=== PATIENT | female | born 1960 | race African-American/Black ===

== ENCOUNTER 2016-07-24 08:56 | Emergency (ER) | payer MEDICARE, BC ==
[~2016-07-24] VITALS: Wt 77.5 kg
[~2016-07-24 08:56] MED LIST: AMIO200T2 PO; APIX5TAB PO; ATOR20TA38 PO; CARV12.579 PO; FURO40TA4 PO; LANT3I SC; LISI20TA11 PO; METF500T4 PO; ONDA4SOL2 PO; SPIR25TA76 PO
[2016-07-24] MEDS ORDERED: SOD CHLORIDE 0.9% 1,000 ML IV STA (10:25)
[2016-07-24] MEDS ORDERED: ONDANSETRON 4 MG INJ IV STA (10:25)
[2016-07-24] MEDS ORDERED: morphine 2 MG INJ IV STA (10:25)
[2016-07-24 11:00] LABS: BASOPHILS % 0.3 % (0.0-2.0); EOSINOPHILS # 0.1 10^3/ul (0.0-0.5); EOSINOPHILS % 1.1 % (0.0-7.0); HEMATOCRIT 32.1 % (37.0-47.0); HEMOGLOBIN 11.1 g/dl (12.0-16.0); LYMPHOCYTES # 1.5 10^3/ul (0.8-2.9); LYMPHOCYTES % 15.7 % (15.0-51.0); MEAN CORPUSCULAR HEMOGLOBIN 31.7 pg (29.0-33.0); MEAN CORPUSCULAR HGB CONC 34.7 g/dl (32.0-37.0); MEAN CORPUSCULAR VOLUME 91.3 fl (82.0-101.0); MEAN PLATELET VOLUME 8.1 fl (7.4-10.4); MONOCYTE # 0.6 10^3/ul (0.3-0.9); MONOCYTES % 5.9 % (0.0-11.0); NEUTROPHIL # 7.6 10^3/ul (1.6-7.5); PLATELET COUNT 230 10^3/UL (140-440); RED BLOOD COUNT 3.52 10^6/ul (4.20-5.40); RED CELL DISTRIBUTION WIDTH 12.5 % (11.5-14.5); UNCORRECTED WBC 9.9 10^3/ul (4.8-10.8); WHITE BLOOD COUNT 9.9 10^3/ul (4.8-10.8)
[2016-07-24] MEDS ORDERED: DIPHENHYDRAMINE 50 MG INJ IM ONE (11:00)
[2016-07-24 11:02] LABS: POTASSIUM 4.1 mmol/L (3.5-5.1)
[2016-07-24] MEDS ORDERED: METF-388 PO (11:03)
[2016-07-24 11:04] LABS: CREATININE 1.42 mg/dl (0.44-1.00)
[2016-07-24 11:05] LABS: BILIRUBIN,INDIRECT 0.4 mg/dl (0-1.1); BILIRUBIN,TOTAL 0.4 mg/dl (0.2-1.3); CALCIUM 9.5 mg/dl (8.4-10.2); CONDITION 1; TOTAL PROTEIN 7.4 g/dl (6.1-8.1)
[2016-07-24 11:06] LABS: ALBUMIN/GLOBULIN RATIO 1.17
--- NOTE | 2016-07-24 11:31 | RADRPT ---
PROCEDURE: CT Abdomen and Pelvis without contrast CLINICAL INDICATION: Acute and chronic right flank pain TECHNIQUE: Transaxial images were obtained through the abdomen and pelvis on a multi-slice scanner without the intravenous contrast administration. No oral contrast had previously been given. Sagit shara and coronal re-formations were subsequently reconstructed. One or more of the following dose reduction techniques were used: - Automated exposure control. - Adjustment of the mA and/or kV according to patient size. - Use of iterative reconstruction technique. Radiation dose: CTDIvol = 13.95 mGy; DLP = 714.68 mGy-cm. COMPARISON: Comparison to 04/06/2016 FINDINGS: Lung bases: The visualized lung bases appear unremarkable. Liver: The liver is enlarged but no focal lesion is identified. Gallbladder: There is cholelithiasis but the gallbladder wall is not thickened. Bile ducts: The intra and extrahepatic bile ducts are normal in caliber. Pancreas: Appears normal with no mass or inflammation evident. Spleen: Normal in size with no focal lesion. Adrenals: Normal with no mass identified. Kidneys, ureters and bladder: The kidneys are normal in size and there is no mass, pathological calc ification, or hydronephrosis evident. There is no perinephric stranding. The ureters are normal in c aliber and no ureteroliths are identified. The bladder appears unremarkable. Reproductive organs: The uterus is absent and no adnexal masses evident. Stomach and bowel: Scattered colonic diverticuli are evident but there is no evidence of bowel obstr uction or inflammation. The stomach appears unremarkable. Appendix: A normal vermiform appendix is identified. Peritoneum: No free intraperitoneal fluid or air is identified. Aorta: There is mild atherosclerotic vascular calcification but no abdominal aortic aneurysm is evid ent. IVC: Unremarkable. Lymph nodes: A 4.5 mm calcified node is seen within the retroperitoneum on image #71 of series 1. Osseous structures: The osseous elements appear intact. IMPRESSION: 1. Persistent mild hepatomegaly with no focal lesion. 2. There is again uncomplicated cholelithiasis not associated with gallbladder wall thickening or b ile duct dilatation. No pancreatic abnormality is evident. 3. Scattered diverticuli are again seen within the colon without evidence of bowel obstruction or i nflammation and with a normal-appearing vermiform appendix again evident. 4. There is again no evidence of urinary outflow obstruction or ureterolithiasis. 5. There is again evidence of a previous hysterectomy. 6. A small calcified retroperitoneal node is again evident. Physician Gurinder Date Time Electronically viewed and signed by Qing Goff Physician on 07/24/2016 11:31 /
[2016-07-24] MEDS ORDERED: ONDA4TAB14 PO (12:57)
[2016-07-24] MEDS ORDERED: TRAM50TA2 PO (12:57)
[2016-07-24] MEDS ORDERED: HYDR-906 PO (12:57)
--- NOTE | 2016-07-24 13:02 | ERD ---
ER Documentation Chief Complaint Date/Time DATE: 07/24/16 TIME: 12:58 Chief Complaint r. flank pain since This 56-year-old female presents with approximately 40 days of right anterior abdominal pain that radiates to her back. States that she's been diagnosed with renal insufficiency and is going to be seeing a specialist soon. She has good primary care follow-up. She's had mild nausea as well. Denies any fevers or chills. Has not tried taking anything for the pain that makes it better or worse. ROS All systems reviewed and are negative except as per history of present illness. Medications Home Meds Active Scripts Ondansetron (Ondansetron Odt) 4 Mg Tab.rapdis, 4 MG PO Q6H Y for NAUSEA AND/OR VOMITING, #10 TAB Prov:SERENITY MORIN DO 07/24/16 Tramadol HCl (Tramadol HCl) 50 Mg Tablet, 50 MG PO Q6 Y for PAIN, #14 TAB Prov:SERENITY MORIN DO 07/24/16 Hydrocodone/Acetaminophen ([place] 5-325 Tablet) 1 Each Tablet, 1 EACH PO Q6, #8 TAB Prov:SERENITY MORIN DO 07/24/16 Ondansetron HCl (Zofran) 4 Mg/5 Ml Solution, 4 MG PO Q4, #20 Prov:SULEMA RG PA-C 04/06/16 Spironolactone* (Aldactone*) 25 Mg Tablet, 25 MG PO BID for 30 Days, TAB 3 Refills Prov:ANNA MIRANDA 02/12/16 Lisinopril* (Lisinopril*) 20 Mg Tablet, 20 MG PO DAILY for 30 Days, TAB 3 Refills Prov:ANNA MIRANDA 02/12/16 Furosemide* (Furosemide*) 40 Mg Tablet, 40 MG PO BID for 30 Days, TAB 3 Refills Prov:ANNA MIRANDA 02/12/16 Atorvastatin Calcium* (Atorvastatin Calcium*) 20 Mg Tab, 20 MG PO HS for 30 Days , TAB 3 Refills Prov:ANNA MIRANDA 10/07/15 Apixaban* (Eliquis*) 5 Mg Tablet, 5 MG PO BID for 30 Days, TAB 3 Refills Prov:ANNA MIRANDA 10/07/15 Reported Medications Metformin Hcl* (Metformin Hcl*) 1,000 Mg Tablet, 1000 MG PO WITH BREAKFAST DINNE , #30 TAB 07/24/16 Amiodarone Hcl* (Amiodarone Hcl*) 200 Mg Tablet, 200 MG PO DAILY, #30 TAB 02/09/16 Insulin Glargine* (Lantus*) 100 Unit/Ml Soln, 26 UNIT SC QHS, #1 VIAL 02/09/16 Discontinued Reported Medications Metformin* (Glucophage*) 500 Mg Tab, 500 MG PO BID, #60 TAB 02/09/16 Carvedilol* (Carvedilol*) 12.5 Mg Tablet, 12.5 MG PO BID, #60 TAB 02/09/16 Allergies Allergies: Coded Allergies: meperidine HCl (Verified Allergy, Mild, ITCHINESS, 07/24/16) PMhx/Soc History of Surgery: Yes (HYSTERECTOMY, CYST LEFT LEG, RT LEG SURGERY) Anesthesia Reaction: Yes (BREATHING PROBLEMS) Hx Neurological Disorder: No Hx Respiratory Disorders: No Hx Cardiac Disorders: Yes (CHF, HTN, HIGH CHOLESTEROL) Hx Psychiatric Problems: No Hx Miscellaneous Medical Probl: Yes (DM) Hx Alcohol Use: No Hx Substance Use: No Hx Tobacco Use: No Smoking Status: Never smoker Physical Exam Vitals Vital Signs Date Time Temp Pulse Resp B/P Pulse Ox O2 Delivery O2 Flow Rate FiO2 07/24/16 09:40 97.9 78 20 144/73 100 Room Air 07/24/16 09:04 97.9 85 20 144/73 100 Physical Exam Const: [] No distress Head: Atraumatic Eyes: Normal Conjunctiva ENT: Normal External Ears, Nose and Mouth. Neck: Full range of motion..~ No meningismus. Resp: Clear to auscultation bilaterally Cardio: Regular rate and rhythm, no murmurs Abd: Soft, right upper quadrant tenderness without guarding or rebound, non distended. Normal bowel sounds Skin: No petechiae or rashes Back: No midline or flank tenderness Ext: No cyanosis, or edema Neur: Awake and alert and oriented 3, no focal deficits Psych: Normal Mood and Affect Result Diagram: 07/24/16 1040 07/24/16 1040 Results 24 hrs Laboratory Tests Test 07/24/16 10:40 Alanine Aminotransferase (ALT/SGPT) 25IU/L Albumin 4.0g/dl Albumin/Globulin Ratio 1.17 Alkaline Phosphatase 65IU/L Anion Gap 17 Aspartate Amino Transf (AST/SGOT) 14IU/L Basophils # 0.010^3/ul Basophils % 0.3% Blood Urea Nitrogen 33mg/dl Calcium Level 9.5mg/dl Carbon Dioxide Level 28mmol/L Chloride Level 100mmol/L Creatinine 1.42mg/dl Direct Bilirubin 0.00mg/dl Eosinophils # 0.110^3/ul Eosinophils % 1.1% Globulin 3.40g/dl Glucose Level 146mg/dl Hematocrit 32.1% Hemoglobin 11.1g/dl Indirect Bilirubin 0.4mg/dl Lactic Acid Level 1.1mmol/L Lipase 67U/L Lymphocytes # 1.510^3/ul Lymphocytes % 15.7% Mean Corpuscular Hemoglobin 31.7pg Mean Corpuscular Hemoglobin Concent 34.7g/dl Mean Corpuscular Volume 91.3fl Mean Platelet Volume 8.1fl Monocytes # 0.610^3/ul Monocytes % 5.9% Neutrophils # 7.610^3/ul Neutrophils % 77.0% Nucleated Red Blood Cells # 0.010^3/ul Nucleated Red Blood Cells % 0.0/100WBC Platelet Count 18443^3/UL Potassium Level 4.1mmol/L Red Blood Count 3.5210^6/ul Red Cell Distribution Width 12.5% Sodium Level 141mmol/L Total Bilirubin 0.4mg/dl Total Protein 7.4g/dl White Blood Count 9.910^3/ul Current Medications Medications (Trade) Dose Ordered Sig/Rizwan Route PRN Reason Start Time Stop Time Status Last Admin Dose Admin Sodium Chloride (NS) 1,000 ml @ 1,000 mls/hr Q1H STAT IV 07/24/16 10:25 07/24/16 11:24 DC 07/24/16 10:31 Morphine Sulfate (morphine) 2 mg ONCE STAT IV 07/24/16 10:25 07/24/16 10:26 DC 07/24/16 10:31 Ondansetron HCl (Zofran Inj) 4 mg ONCE STAT IV 07/24/16 10:25 07/24/16 10:26 DC 07/24/16 10:30 Diphenhydramine HCl (Benadryl) 25 mg ONCE ONCE IM 07/24/16 11:00 07/24/16 11:01 DC 07/24/16 10:39 Procedures/MDM Biliary colic and very stable patient with no evidence for acute cholecystitis or ascending cholangitis. She is hydrated with normal saline in the emergency room and given morphine and Zofran IV in the emergency room which relieved her pain but caused some itching. She was then given 25 mg of IM Benadryl. She has no elevated white count or elevated LFTs or bilirubin. Does have renal insufficiency she states she is artery been diagnosed with. Admitted discharge her with [place] and tramadol for pain as well as Zofran ODT and instructed to call her primary care doctor tomorrow for an appointment sooner. I am also given instructions to obtain a referral for general surgeon to address her gallbladder. Departure Diagnosis: Primary Impression: Biliary colic Additional Impressions: Flank pain Renal insufficiency Condition: Stable Patient Instructions: Flank Pain, Uncertain Cause, Biliary Colic With Gallstone (Confirmed) Additional Instructions: Call your primary care doctor TOMORROW for an appointment during the next 2-3 days. Get a referall for a GENERAL SURGEON. See the doctor sooner or return here if your condition worsens before your appointment time. SERENITY MORIN DO Jul 24, 2016 13:02
[2016-07-24 13:24] VITALS: BP 136/71; PULSE 71; RESP 20; TEMP 98.3
== END 2016-07-24 13:26 | disposition home or self-care (01) ==
LOC: E/R 08:56
DX: K80.50 Calculus of bile duct without cholangitis or cholecystitis without obstruction (principal); R10.11 Right upper quadrant pain; N28.9 Disorder of kidney and ureter, unspecified; R11.0 Nausea; I10 Essential (primary) hypertension; I50.9 Heart failure, unspecified; E11.9 Type 2 diabetes mellitus without complications; Z79.01 Long term (current) use of anticoagulants; Z79.4 Long term (current) use of insulin; Z79.84 Long term (current) use of oral hypoglycemic drugs
CPT/HCPCS: 74176; 80053; 83605; 83690; 85025; 96372; 96374; 96375; 99285; J1200; J2270; J2405; J7030

== ENCOUNTER 2016-07-28 16:35 | Observation (INO) | payer MEDICARE, BC ==
[~2016-07-28] VITALS: Ht 165.1 cm; Wt 80.2 kg
[~2016-07-28 16:35] MED LIST changes: -CARV12.579 PO; +HYDR-906 PO; +METF-388 PO; -METF500T4 PO; +ONDA4TAB14 PO; +TRAM50TA2 PO
[2016-07-28] MEDS ORDERED: HYDROmorphONE 1 MG/ML SYG IV STA (17:51)
[2016-07-28] MEDS ORDERED: ONDANSETRON 4 MG INJ IV STA ×2 (17:51→19:27)
[2016-07-28] MEDS ORDERED: SOD CHLORIDE 0.9% 1,000 ML IV STA (17:51)
--- NOTE | 2016-07-28 18:14 | RADRPT ---
PROCEDURE: US Abdomen (right upper quadrant). CLINICAL INDICATION: Right upper quadrant abdomen pain. TECHNIQUE: Multiple real-time longitudinal and transverse images of the right upper quadrant of th e abdomen were acquired utilizing a curved array transducer. Images were reviewed on a high-resoluti on PACS workstation. COMPARISON: CT scan of the abdomen and pelvis dated 07/24/2016. FINDINGS: The liver is normal in size and diffusely increased in echogenicity. There is no focal hepatic lesion. The gallbladder contains multiple gallstones. There is no gallbladder wall thickening. There is no pericholecystic fluid collection. The bile ducts are normal with the common bile duct measuring 2.6 mm in diameter. The visualized portions of the pancreas are unremarkable with obscuration of the tail of the pancrea s. No free fluid is present. The right kidney measures 10.5 x 4.0 x 4.9 cm. There is normal echogenicity of the right kidney. There is no perinephric fluid collection. No hydronephrosis, mass, or calculus is seen. IMPRESSION: 1. Fatty metamorphosis of the liver. 2. Gallstones in the gallbladder. No evidence of cholecystitis. 3. Otherwise normal right upper quadrant abdomen ultrasound. RPTAT: QQ .Alfred Dougherty MD, MD Date Time Electronically viewed and signed by .Alfred Dougherty MD, on 07/28/2016 18:14 .R/
[2016-07-28 18:16] LABS: HEMATOCRIT 32.3 % (37.0-47.0); HEMOGLOBIN 11.2 g/dl (12.0-16.0); MEAN CORPUSCULAR HEMOGLOBIN 31.4 pg (29.0-33.0); MEAN CORPUSCULAR HGB CONC 34.6 g/dl (32.0-37.0); MEAN CORPUSCULAR VOLUME 90.8 fl (82.0-101.0); MEAN PLATELET VOLUME 8.1 fl (7.4-10.4); PLATELET COUNT 246 10^3/UL (140-440); RED BLOOD COUNT 3.56 10^6/ul (4.20-5.40); RED CELL DISTRIBUTION WIDTH 11.9 % (11.5-14.5); UNCORRECTED WBC 8.6 10^3/ul (4.8-10.8); WHITE BLOOD COUNT 8.6 10^3/ul (4.8-10.8)
[2016-07-28 18:24] LABS: ADD UMIC YES; URINE BILIRUBIN (Dip) NEGATIVE (NEGATIVE); URINE BLOOD (Dip) 2+ (NEGATIVE); URINE COLOR LT. YELLOW (YELLOW); URINE GLUCOSE (Dip) NEGATIVE (NEGATIVE); URINE KETONES (Dip) TRACE (NEGATIVE); URINE LEUKOCYTE ESTERASE (Dip) 3+ (NEGATIVE); URINE NITRITE (Dip) NEGATIVE (NEGATIVE); URINE TOTAL PROTEIN (Dip) 2+ (NEGATIVE); URINE UROBILINOGEN (Dip) 0.2 E.U./dL (0.1-1.0)
[2016-07-28 18:25] LABS: ALBUMIN 4.2 g/dl (3.3-4.9); CONDITION 1; LH ANALYZER COMMENTS 1; POTASSIUM 4.2 mmol/L (3.5-5.1); SUSPECT 1
[2016-07-28 18:27] LABS: CREATININE 1.87 mg/dl (0.44-1.00)
[2016-07-28 18:28] LABS: ALBUMIN/GLOBULIN RATIO 1.16; BILIRUBIN,INDIRECT 0.3 mg/dl (0-1.1); BILIRUBIN,TOTAL 0.3 mg/dl (0.2-1.3); CALCIUM 9.9 mg/dl (8.4-10.2); TOTAL PROTEIN 7.8 g/dl (6.1-8.1)
[2016-07-28 18:41] LABS: BACTERIA,URINE MANY; SQUAMOUS EPITHELIAL CELL,UR MANY
[2016-07-28 19:14] LABS: LYMPHOCYTES # 2.8 10^3/ul (0.8-2.9); MONOCYTE # 0.3 10^3/ul (0.3-0.9); NEUTROPHIL # 5.5 10^3/ul (1.6-7.5)
[2016-07-28] MEDS: SOD CHLORIDE 0.9% 1,000 ML IV ONE ×2 (19:30→19:35)
[2016-07-28] MEDS ORDERED: LEVOFLOXACIN 500MG/D5W (PMX) 100 ML IVPB ONE (20:00)
--- NOTE | 2016-07-28 20:06 | ERA ---
ER Documentation Chief Complaint Date/Time DATE: 07/28/16 TIME: 20:00 Chief Complaint abdominal pain with nausea and vomiting for 4 days. poor po intake HPI This is a 56-year-old female who is here for right upper quadrant pain radiating to the right back with intractable nausea and vomiting for the past 3- 4 days. Patient was seen here last week was diagnosed with gallstones. She says she is here with the exact same symptoms that she had been. She says there is no blood or bile in her vomit. She says the pain is crampy and sharp at times the right upper quadrant radiates around to the right back. No fever no diarrhea she says she is able to tolerate any fluids or food including her medications. No reflux. ROS All systems reviewed and are negative except as per history of present illness. Medications Home Meds Active Scripts Ondansetron (Ondansetron Odt) 4 Mg Tab.rapdis, 4 MG PO Q6H Y for NAUSEA AND/OR VOMITING, #10 TAB Prov:SERENITY MORIN DO 07/24/16 Tramadol HCl (Tramadol HCl) 50 Mg Tablet, 50 MG PO Q6 Y for PAIN, #14 TAB Prov:SERENITY MORIN DO 07/24/16 Hydrocodone/Acetaminophen ([place] 5-325 Tablet) 1 Each Tablet, 1 EACH PO Q6, #8 TAB Prov:SERENITY MORIN DO 07/24/16 Spironolactone* (Aldactone*) 25 Mg Tablet, 25 MG PO BID for 30 Days, TAB 3 Refills Prov:ANNA MIRANDA 02/12/16 Lisinopril* (Lisinopril*) 20 Mg Tablet, 20 MG PO DAILY for 30 Days, TAB 3 Refills Prov:ANNA MIRANDA 02/12/16 Furosemide* (Furosemide*) 40 Mg Tablet, 40 MG PO BID for 30 Days, TAB 3 Refills Prov:ANNA MIRANDA 02/12/16 Atorvastatin Calcium* (Atorvastatin Calcium*) 20 Mg Tab, 20 MG PO HS for 30 Days , TAB 3 Refills Prov:ANNA MIRANDA 10/07/15 Apixaban* (Eliquis*) 5 Mg Tablet, 5 MG PO BID for 30 Days, TAB 3 Refills Prov:ANNA MIRANDA 10/07/15 Reported Medications Metformin Hcl* (Metformin Hcl*) 1,000 Mg Tablet, 1000 MG PO WITH BREAKFAST DINNE , #30 TAB 07/24/16 Amiodarone Hcl* (Amiodarone Hcl*) 200 Mg Tablet, 200 MG PO DAILY, #30 TAB 02/09/16 Insulin Glargine* (Lantus*) 100 Unit/Ml Soln, 26 UNIT SC QHS, #1 VIAL 02/09/16 Discontinued Reported Medications Metformin* (Glucophage*) 500 Mg Tab, 500 MG PO BID, #60 TAB 02/09/16 Carvedilol* (Carvedilol*) 12.5 Mg Tablet, 12.5 MG PO BID, #60 TAB 02/09/16 Discontinued Scripts Ondansetron HCl (Zofran) 4 Mg/5 Ml Solution, 4 MG PO Q4, #20 Prov:SULEMA GR PA-C 04/06/16 Allergies Allergies: Coded Allergies: meperidine HCl (Verified Allergy, Mild, ITCHINESS, 07/28/16) PMhx/Soc History of Surgery: Yes (HYSTERECTOMY, CYST LEFT LEG, RT LEG SURGERY) Anesthesia Reaction: Yes (BREATHING PROBLEMS) Hx Neurological Disorder: No Hx Respiratory Disorders: No Hx Cardiac Disorders: Yes (CHF, HTN, HIGH CHOLESTEROL) Hx Psychiatric Problems: No Hx Miscellaneous Medical Probl: Yes (DM) Hx Alcohol Use: No Hx Substance Use: No Hx Tobacco Use: No Smoking Status: Never smoker FmHx Family History: No coronary disease Physical Exam Vitals Vital Signs Date Time Temp Pulse Resp B/P Pulse Ox O2 Delivery O2 Flow Rate FiO2 07/28/16 18:14 75 20 136/66 99 Room Air 07/28/16 16:38 98.5 80 20 160/74 100 Physical Exam Const: Well-developed, well-nourished Head: Atraumatic, normocephalic Eyes: Normal Conjunctiva, PERRLA, EOMI, normal sclera, no nystagmus ENT: Normal External Ears, Nose and Mouth, moist mucus membranes. Neck: Full range of motion. No meningismus, no lymphadenopathy. Resp: Clear to auscultation bilaterally, no wheezing, rhonchi, rales Cardio: Regular rate and rhythm, no murmurs, S1 S2 present Abd: Soft, right upper quadrant tenderness moderate negative Lubin's, non distended. Normal bowel sounds, no guarding or rebound, no pulsitile abdominal masses or bruits Skin: No petechiae or rashes, no ecchymosis , no maculopapular rash Back: No midline or flank tenderness Ext: No cyanosis, or edema, FROM x 4, normal inspection, neurovascularly intact x 4 Neur: Awake and alert, STR 5/5 x 4, sensation intact x 4, no focal findings, cerebellum intact Psych: Normal Mood and Affect Result Diagram: 07/28/16180407/28/16 180 Results 24 hrs Laboratory Tests Test 07/28/16 18:00 07/28/16 18:05 Urine Bacteria MANY Urine Bilirubin NEGATIVE Urine Clarity CLOUDY Urine Color LT. YELLOW Urine Glucose NEGATIVE% Urine Hemoglobin 2+ Urine Ketones TRACE Urine Leukocyte Esterase 3+ Urine Microscopic RBC 10-25/HPF Urine Microscopic WBC >200/HPF Urine Nitrite NEGATIVE Urine Specific [place] 1.020 Urine Squamous Epithelial Cells MANY Urine Total Protein 2+ Urine Urobilinogen 0.2 E.U./dL Urine pH 6.0 Alanine Aminotransferase (ALT/SGPT) 19IU/L Albumin 4.2g/dl Albumin/Globulin Ratio 1.16 Alkaline Phosphatase 68IU/L Anion Gap 20 Aspartate Amino Transf (AST/SGOT) 14IU/L Band Neutrophils % 1.0% Blood Urea Nitrogen 35mg/dl Calcium Level 9.9mg/dl Carbon Dioxide Level 30mmol/L Chloride Level 93mmol/L Creatinine 1.87mg/dl Direct Bilirubin 0.00mg/dl Globulin 3.60g/dl Glucose Level 178mg/dl Hematocrit 32.3% Hemoglobin 11.2g/dl Indirect Bilirubin 0.3mg/dl Lipase 42U/L Lymphocytes # 2.810^3/ul Lymphocytes % 32.0% Mean Corpuscular Hemoglobin 31.4pg Mean Corpuscular Hemoglobin Concent 34.6g/dl Mean Corpuscular Volume 90.8fl Mean Platelet Volume 8.1fl Monocytes # 0.310^3/ul Monocytes % 3.0% Neutrophils # 5.510^3/ul Neutrophils % 64.0% Platelet Count 65835^3/UL Potassium Level 4.2mmol/L Red Blood Count 3.5610^6/ul Red Cell Distribution Width 11.9% Sodium Level 139mmol/L Total Bilirubin 0.3mg/dl Total Protein 7.8g/dl White Blood Count 8.610^3/ul Current Medications Medications (Trade) Dose Ordered Sig/Rizwan Route PRN Reason Start Time Stop Time Status Last Admin Dose Admin Sodium Chloride (NS) 1,000 ml @ 1,000 mls/hr Q1H STAT IV 07/28/16 17:51 07/28/16 18:50 DC 07/28/16 18:07 Hydromorphone HCl (Dilaudid) 1 mg ONCE STAT IV 07/28/16 17:51 07/28/16 17:52 DC 07/28/16 18:07 Ondansetron HCl 4 mg 4 mg ONCE STAT IV 07/28/16 17:51 07/28/16 17:52 DC 07/28/16 18:07 Sodium Chloride (NS) 1,000 ml @ 1,000 mls/hr Q1H ONCE IV 07/28/16 19:00 07/28/16 19:59 DC Ondansetron HCl 4 mg 4 mg ONCE STAT IV 07/28/16 19:27 07/28/16 19:30 DC 07/28/16 19:32 Levofloxacin/ Dextrose (Levaquin 500mg/ D5W 100 ml (Pmx)) 100 ml @ 100 mls/hr ONCE ONCE IVPB 07/28/16 20:00 07/28/16 20:59 Procedures/MDM PROCEDURE: US Abdomen (right upper quadrant). CLINICAL INDICATION: Right upper quadrant abdomen pain. TECHNIQUE: Multiple real-time longitudinal and transverse images of the right upper quadrant of the abdomen were acquired utilizing a curved array transducer. Images were reviewed on a high-resolution PACS workstation. COMPARISON: CT scan of the abdomen and pelvis dated 07/24/2016. FINDINGS: The liver is normal in size and diffusely increased in echogenicity. There is no focal hepatic lesion. The gallbladder contains multiple gallstones. There is no gallbladder wall thickening. There is no pericholecystic fluid collection. The bile ducts are normal with the common bile duct measuring 2.6 mm in diameter. The visualized portions of the pancreas are unremarkable with obscuration of the tail of the pancreas. No free fluid is present. The right kidney measures 10.5 x 4.0 x 4.9 cm. There is normal echogenicity of the right kidney. There is no perinephric fluid collection. No hydronephrosis, mass, or calculus is seen. IMPRESSION: 1. Fatty metamorphosis of the liver. 2. Gallstones in the gallbladder. No evidence of cholecystitis. 3. Otherwise normal right upper quadrant abdomen ultrasound. RPTAT: QQ .Alfred Dougherty MD, Date Time Electronically viewed and signed by .Alfred Dougherty MD, on 07/28/2016 18:14 .R/ CC: HAIR SILVA DO Patient's creatinine is increased from 1.4 TO 1.87 Patient's pain is likely biliary colic however there is no signs of obstruction with elevated liver function tests were dilated common bile duct. Patient symptoms also could be from duodenitis or gastritis/peptic ulcer disease. Creatinine is increased demonstrating some volume depletion and inability to tolerate fluids She has a history of CHF will need to be carefully fluid resuscitated She will need to get a HIDA scan. I discussed the case with Dr. FREEMAN general surgery he will see her in consultation Departure Diagnosis: Primary Impression: Renal insufficiency Additional Impressions: Gallstones Intractable vomiting Qualified Code: R11.2 - Intractable vomiting with nausea, unspecified vomiting type Condition: Stable HAIR SILVA DO Jul 28, 2016 20:06
[2016-07-28] MEDS ORDERED: METOCLOPRAMIDE 10 MG INJ IV ONE (21:30)
[2016-07-28] MEDS ORDERED: SOD CHLORIDE 0.9% 1,000 ML IV SCH (21:36)
[2016-07-28] MEDS ORDERED: ONDANSETRON 4 MG INJ IV PRN ×2 (22:00→23:30)
[2016-07-28] MEDS ORDERED: ACETAMINOPHEN 325 MG TAB PO PRN (22:00)
[2016-07-28 22:45] VITALS: BP 144/68; RESP 17
[2016-07-28] MEDS: D5W-0.45 NACL + KCL 20 MEQ 1,000 ML IV SCH (23:17)
[2016-07-28 23:27] VITALS: BP 144/68; PULSE 68; RESP 17
[2016-07-28] MEDS ORDERED: morphine 2 MG INJ IV PRN (23:30)
[2016-07-28 23:42] VITALS: Ht 165.1 cm; Wt 80.2 kg
[2016-07-29] MEDS ORDERED: GLUCOSE GEL 15 GRAM TUBE BUCCAL PRN (01:00)
[2016-07-29] MEDS ORDERED: DEXTROSE 50% 50 ML SYRINGE IV PRN ×2 (01:00)
[2016-07-29] MEDS ORDERED: GLUCOSE GEL 15 GRAM TUBE PO PRN ×2 (01:00)
[2016-07-29] MEDS ORDERED: GLUCAGON 1 MG INJ IM PRN (01:00)
[2016-07-29] MEDS ORDERED: INSULIN ASPART [NOVOLOG] 3 ML PEN SC SCH (01:00)
[2016-07-29] MEDS: Insulin NOVOLOG SS MODERATE Algorithm(NPO/TPN/ENTERAL FEEDS) SC SCH ×4 (01:25→16:58)
[2016-07-29 01:35] VITALS: PULSE 70
[2016-07-29] MEDS ORDERED: ACCUCHECK XX SCH (02:00)
[2016-07-29 05:24] LABS: BASOPHILS % 0.5 % (0.0-2.0); EOSINOPHILS # 0.1 10^3/ul (0.0-0.5); EOSINOPHILS % 1.5 % (0.0-7.0); HEMOGLOBIN 10.9 g/dl (12.0-16.0); LYMPHOCYTES # 1.7 10^3/ul (0.8-2.9); LYMPHOCYTES % 25.7 % (15.0-51.0); MEAN CORPUSCULAR HEMOGLOBIN 31.3 pg (29.0-33.0); MEAN CORPUSCULAR HGB CONC 34.1 g/dl (32.0-37.0); MEAN CORPUSCULAR VOLUME 91.6 fl (82.0-101.0); MONOCYTE # 0.5 10^3/ul (0.3-0.9); MONOCYTES % 8.4 % (0.0-11.0); NEUTROPHIL # 4.2 10^3/ul (1.6-7.5); NEUTROPHILS % 63.9 % (39.0-77.0); PLATELET COUNT 234 10^3/UL (140-440); RED CELL DISTRIBUTION WIDTH 11.9 % (11.5-14.5); UNCORRECTED WBC 6.5 10^3/ul (4.8-10.8); WHITE BLOOD COUNT 6.5 10^3/ul (4.8-10.8)
[2016-07-29] MEDS: PANTOPRAZOLE 40 MG INJ IV SCH (05:29)
[2016-07-29 05:33] LABS: CONDITION 1
[2016-07-29 05:41] LABS: ALBUMIN 3.7 g/dl (3.3-4.9)
[2016-07-29 05:42] LABS: POTASSIUM 4.2 mmol/L (3.5-5.1)
[2016-07-29 05:44] LABS: BILIRUBIN,INDIRECT 0.4 mg/dl (0-1.1); BILIRUBIN,TOTAL 0.4 mg/dl (0.2-1.3); CREATININE 1.49 mg/dl (0.44-1.00)
[2016-07-29 05:45] LABS: ALBUMIN/GLOBULIN RATIO 1.08; TOTAL PROTEIN 7.1 g/dl (6.1-8.1)
[2016-07-29 08:08] VITALS: BP 139/65; RESP 18
[2016-07-29] MEDS: D5W-0.45 NACL + KCL 20 MEQ 1,000 ML IV SCH ×3 (09:19→22:33)
--- NOTE | 2016-07-29 15:37 | RADRPT ---
PROCEDURE: Nuclear medicine hepatobiliary scan. CLINICAL INDICATION: Right upper quadrant abdomen pain. TECHNIQUE: Following intravenous injection of 6.9 mCi technetium 99m Choletec, anterior static andrew ges of the abdomen were obtained every 5 minutes for a total of 65 minutes. COMPARISON: No prior studies available for comparison. FINDINGS: There is normal uptake throughout the liver. Biliary uptake is present 10 minutes. Gallbladder uptake is present at 50 minutes. Bowel uptake is present at 20 minutes. There is no evidence of obstruction. IMPRESSION: 1. Normal study with patent cystic duct. RPTAT: QQ .Alfred Dougherty MD, MD Date Time Electronically viewed and signed by .Alfred Dougherty MD, on 07/29/2016 15:36 .R/
--- NOTE | 2016-07-29 16:09 | HP ---
Date/Time of Note Date/Time of Note DATE: 07/29/16 TIME: 16:07 Assessment/Plan VTE Prophylaxis VTE Prophylaxis Intervention: other Lines/Catheters IV [facility] Type [facility] Peripheral IV Urinary Cath still in place: No Assessment/Plan Chief Complaint/Hosp Course 1) cholecystitis - monitor clinically - surgical consult 2) diabetes - monitor blood sugar Problems: HPI/ROS Admit Date/Time Admit Date/Time Jul 28, 2016 at 21:38 Hx of Present Illness Patient with hypertension, diabetes comes in with abdominal pain and found to have cholecystitis. Patient is admitted for further treatment. PMH/Family/Social Past Medical History Medical History: diabetes, hypertension Past Surgical History Past Surgical Hx: no surgical history, other Social History Alcohol Use: none Smoking Status: Never smoker Exam/Review of Systems Vital Signs Vitals Vital Signs Date Time Temp Pulse Resp B/P Pulse Ox O2 Delivery O2 Flow Rate FiO2 07/29/16 08:08 98.2 73 18 139/65 100 07/29/16 03:35 30 07/28/16 23:27 Room Air Intake and Output 07/28/16 07/28/16 07/29/16 14:59 22:59 06:59 Intake Total 0 ml Balance 0 ml Exam Head: atraumatic, normocephalic Neck: supple Respiratory: clear to auscultation Cardiovascular: regular rate and rhythm Gastrointestinal: non-tender, soft Extremities: normal pulses Labs Result Diagram: 07/29/1642607/29/16426 Medications Medications Current Medications Potassium Chloride/Dextrose/ Sod Cl (D5-1/2ns + KCl 20 Meq) 1,000 ml @ 100 mls/ hr Q10H IV Last administered on 07/29/16 09:19; Admin Dose 100 MLS/HR; Start 07/28/16 at 23:30 Pantoprazole (Protonix Iv) 40 mg DAILY@06 IV Last administered on 07/29/16 05: 29; Admin Dose 40 MG; Start 07/29/16 at 06:00 Ondansetron HCl (Zofran Inj) 4 mg Q6H PRN IV NAUSEA AND/OR VOMITING; Start at 23:30 Morphine Sulfate (morphine) 2 mg Q3H PRN IV PAIN; Start 07/28/16 at 23:30 Insulin Aspart (Novolog Insulin Pen) (Adult SC Insulin - Moder... Q6 SC Last administered on 07/29/16t 11:40; Admin Dose 2 UNIT; Start 07/29/16 at 01:00 Miscellaneous Information 1 ea NOTE XX ; Start 07/29/16 at 01:00 Glucose (Glutose) 15 gm Q15M PRN PO DECREASED GLUCOSE; Start 07/29/16 at 01:00 Glucose (Glutose) 22.5 gm Q15M PRN PO DECREASED GLUCOSE; Start 07/29/16 at 01: 00 Dextrose (D50w Syringe) 25 ml Q15M PRN IV DECREASED GLUCOSE; Start 07/29/16 at 01:00 Dextrose (D50w Syringe) 50 ml Q15M PRN IV DECREASED GLUCOSE; Start 07/29/16 at 01:00 Glucagon (Glucagen) 1 mg Q15M PRN IM DECREASED GLUCOSE; Start 07/29/16 at 01:00 Glucose (Glutose) 15 gm Q15M PRN BUCCAL DECREASED GLUCOSE; Start 07/29/16 at 01 :00 ISAAC YOST Jul 29, 2016 16:09
[2016-07-29 20:51] VITALS: BP 147/71; RESP 19
[2016-07-30] MEDS ORDERED: ACCUCHECK XX SCH ×2 (02:00)
[2016-07-30] MEDS: PANTOPRAZOLE 40 MG INJ IV SCH (06:08)
[2016-07-30] MEDS ORDERED: INSULIN ASPART [NOVOLOG] 3 ML PEN SC SCH (08:00)
[2016-07-30 08:10] VITALS: BP 174/82; RESP 18
[2016-07-30] MEDS: INSULIN ASPART [NOVOLOG] 3 ML PEN SC SCH ×2 (08:25→12:14)
[2016-07-30] MEDS ORDERED: LISINOPRIL 20 MG TAB PO SCH (09:30)
[2016-07-30] MEDS ORDERED: SPIRONOLACTONE 25 MG TAB PO SCH (10:30)
[2016-07-30] MEDS ORDERED: AMIODARONE 200 MG TAB PO SCH (10:30)
[2016-07-30 10:31] VITALS: BP 138/68; PULSE 76
--- NOTE | 2016-07-30 12:15 | DS ---
Date/Time of Note Date/Time of Note DATE: 07/30/16 TIME: 12:14 Discharge Summary Admission/Discharge Info Admit Date/Time Jul 28, 2016 at 21:38 Discharge Date/Time 07/30/16 Final Diagnosis 1) abdominal pain 2) diabetes 3) congestive heart failure Patient Condition: Good Hx of Present Illness Patient with hypertension, diabetes comes in with abdominal pain and found to have cholecystitis. Patient is admitted for further treatment. Hospital Course Patient admitted for cholecystitis but HIDA scan was negative. Patient's pain resolved so no need for other testing or evaluation. She still complains of constipation which is chronic but she will follow up with her primary physician. 1) cholecystitis - monitor clinically - surgical consult 2) diabetes - monitor blood sugar Home Meds Active Scripts Ondansetron (Ondansetron Odt) 4 Mg Tab.rapdis, 4 MG PO Q6H Y for NAUSEA AND/OR VOMITING, #10 TAB Prov:SERENITY MORIN DO 07/24/16 Tramadol HCl (Tramadol HCl) 50 Mg Tablet, 50 MG PO Q6 Y for PAIN, #14 TAB Prov:SERENITY MORIN DO 07/24/16 Hydrocodone/Acetaminophen ([place] 5-325 Tablet) 1 Each Tablet, 1 EACH PO Q6, #8 TAB Prov:SERENITY MORIN DO 07/24/16 Spironolactone* (Aldactone*) 25 Mg Tablet, 25 MG PO BID for 30 Days, TAB 3 Refills Prov:ANNA MIRANDA 02/12/16 Lisinopril* (Lisinopril*) 20 Mg Tablet, 20 MG PO DAILY for 30 Days, TAB 3 Refills Prov:ANNA MIRANDA 02/12/16 Furosemide* (Furosemide*) 40 Mg Tablet, 40 MG PO BID for 30 Days, TAB 3 Refills Prov:ANNA MIRANDA 02/12/16 Atorvastatin Calcium* (Atorvastatin Calcium*) 20 Mg Tab, 20 MG PO HS for 30 Days , TAB 3 Refills Prov:ANNA MIRANDA 10/07/15 Apixaban* (Eliquis*) 5 Mg Tablet, 5 MG PO BID for 30 Days, TAB 3 Refills Prov:ANNA MIRANDA 10/07/15 Reported Medications Metformin Hcl* (Metformin Hcl*) 1,000 Mg Tablet, 1000 MG PO WITH BREAKFAST DINNE , #30 TAB 07/24/16 Amiodarone Hcl* (Amiodarone Hcl*) 200 Mg Tablet, 200 MG PO DAILY, #30 TAB 02/09/16 Insulin Glargine* (Lantus*) 100 Unit/Ml Soln, 26 UNIT SC QHS, #1 VIAL 02/09/16 Discontinued Reported Medications Metformin* (Glucophage*) 500 Mg Tab, 500 MG PO BID, #60 TAB 02/09/16 Carvedilol* (Carvedilol*) 12.5 Mg Tablet, 12.5 MG PO BID, #60 TAB 02/09/16 Discontinued Scripts Ondansetron HCl (Zofran) 4 Mg/5 Ml Solution, 4 MG PO Q4, #20 Prov:SULEMA GR PA-C 04/06/16 Pending Labs Laboratory Tests Test 07/29/16 16:23 07/29/16 21:46 07/30/16 02:14 07/30/16 07:47 Bedside Glucose 105mg/dL (70-220) 287mg/dL (70-220) 231mg/dL (70-220) 225mg/dL (70-220) Test 07/30/16 11:35 Bedside Glucose 189mg/dL (70-220) ISAAC YOST Jul 30, 2016 12:15
== END 2016-07-30 13:46 | disposition home or self-care (01) ==
LOC: E/R 16:35 → PP2 21:38
PROVIDERS: ADMIT Internal Medicine; ATTEND Internal Medicine
DX: R10.9 Unspecified abdominal pain (principal); E11.9 Type 2 diabetes mellitus without complications; I11.0 Hypertensive heart disease with heart failure; I50.9 Heart failure, unspecified; K80.20 Calculus of gallbladder without cholecystitis without obstruction; E78.00 Pure hypercholesterolemia, unspecified; K76.0 Fatty (change of) liver, not elsewhere classified; Z88.8 Allergy status to other drugs, medicaments and biological substances; Z90.710 Acquired absence of both cervix and uterus
CPT/HCPCS: 36415; 76705; 78226; 80053; 81001; 82150; 82962; 83690; 85025; 87086; 94660; 96374; 96375; 96376; 99285; A9537; C9113; G0378; J1170; J1815; J1956; J2405; J2765; J3480; J7030; 81003

== ENCOUNTER 2016-08-15 09:29 | Inpatient (IN) | payer MEDICARE, BC ==
[~2016-08-15] VITALS: Ht 165.1 cm; Wt 75.0 kg
[~2016-08-15 09:29] MED LIST changes: -METF-388 PO; +METF1000 PO; -ONDA4SOL2 PO; +SPIR25TA PO; -SPIR25TA76 PO
[2016-08-15 09:38] VITALS: Ht 165.1 cm; Wt 75.0 kg
[2016-08-15] MEDS ORDERED: SODIUM CHLORIDE 0.9% 1L BAG IV* STA (11:56)
[2016-08-15] MEDS ORDERED: IBUPROFEN 600 MG TAB PO ONE (12:00)
[2016-08-15] MEDS ORDERED: PIPER-TAZO 3.375 GM IV (PMX) 100 ML IVPB ONE (12:00)
[2016-08-15] MEDS ORDERED: morphine 4 MG/ML VIAL IV STA (12:01)
[2016-08-15] MEDS ORDERED: ONDANSETRON 4 MG INJ IV STA (12:01)
[2016-08-15 13:26] LABS: HEMATOCRIT 30.7 % (37.0-47.0); HEMOGLOBIN 10.7 g/dl (12.0-16.0); LYMPHOCYTES # 0.7 10^3/ul (0.8-2.9); LYMPHOCYTES % 5.7 % (15.0-51.0); MEAN CORPUSCULAR HEMOGLOBIN 31.7 pg (29.0-33.0); MEAN CORPUSCULAR HGB CONC 34.9 g/dl (32.0-37.0); MEAN CORPUSCULAR VOLUME 90.9 fl (82.0-101.0); MEAN PLATELET VOLUME 8.4 fl (7.4-10.4); MONOCYTE # 0.7 10^3/ul (0.3-0.9); NEUTROPHIL # 10.8 10^3/ul (1.6-7.5); NEUTROPHILS % 88.3 % (39.0-77.0); PLATELET COUNT 216 10^3/UL (140-440); RED BLOOD COUNT 3.37 10^6/ul (4.20-5.40); UNCORRECTED WBC 12.2 10^3/ul (4.8-10.8); WHITE BLOOD COUNT 12.2 10^3/ul (4.8-10.8)
[2016-08-15 13:29] LABS: ALBUMIN 3.9 g/dl (3.3-4.9)
[2016-08-15 13:30] LABS: ADD UMIC YES; POTASSIUM 4.8 mmol/L (3.5-5.1); URINE BILIRUBIN (Dip) NEGATIVE (NEGATIVE); URINE BLOOD (Dip) 2+ (NEGATIVE); URINE COLOR LT. YELLOW (YELLOW); URINE KETONES (Dip) NEGATIVE (NEGATIVE); URINE LEUKOCYTE ESTERASE (Dip) TRACE (NEGATIVE); URINE NITRITE (Dip) NEGATIVE (NEGATIVE); URINE TOTAL PROTEIN (Dip) 2+ (NEGATIVE); URINE UROBILINOGEN (Dip) 0.2 E.U./dL (0.1-1.0)
[2016-08-15 13:31] LABS: INR 1.05; PROTIME 13.7 Sec (12.2-14.2); PT RATIO 1.1
--- NOTE | 2016-08-15 13:31 | RADRPT ---
PROCEDURE: XR Chest. CLINICAL INDICATION: Possible sepsis. TECHNIQUE: Single frontal view of the chest was obtained COMPARISON: Chest x-ray 02/12/2016 09:18 a.m. FINDINGS: The cardiomediastinal silhouette, pulmonary vasculature and jerry are unremarkable. The lungs are cl ear. There are degenerative osteophytes in the thoracic spine. The soft tissues are normal. The lef t ventricle is mildly enlarged. IMPRESSION: 1. Mild left ventricular enlargement unchanged compared to 02/12/2016. 2. No evidence of acute infiltrate or congestive heart failure. 3. Spondylosis of the thoracic spine are RPTAT:AAJJ Physician Demi Date Time Electronically viewed and signed by Ulisses Lee Physician on 08/15/2016 13:31 RASHMI/
[2016-08-15 13:32] LABS: ALBUMIN/GLOBULIN RATIO 1.08; BILIRUBIN,INDIRECT 0.6 mg/dl (0-1.1); BILIRUBIN,TOTAL 0.6 mg/dl (0.2-1.3); CREATININE 1.77 mg/dl (0.44-1.00); TOTAL PROTEIN 7.5 g/dl (6.1-8.1)
[2016-08-15 13:33] LABS: CALCIUM 9.4 mg/dl (8.4-10.2)
[2016-08-15 13:39] LABS: CONDITION 1
[2016-08-15 13:41] LABS: TROPONIN-I 0.012 ng/ml (0.00-0.12)
--- NOTE | 2016-08-15 13:50 | RADRPT ---
PROCEDURE: US Abdomen (right upper quadrant). CLINICAL INDICATION: Abdominal pain TECHNIQUE: Multiple real-time longitudinal and transverse images of the right upper quadrant of th e abdomen were acquired utilizing a curved array transducer. Images were reviewed on a high-resoluti on PACS workstation. COMPARISON: Correlation nuclear medicine HIDA scan 07/29/2016 FINDINGS: Cholelithiasis. The gallbladder wall measures 2 mm. The common bile duct measures 5 mm. No pericholecystic fluid is seen. No reported sonographic Lubin sign. No right renal hydronephrosis. Echogenic, enlarged liver measuring 19 cm length. IMPRESSION: Cholelithiasis without sonographic evidence of acute cholecystitis. Enlarged fatty liver. RPTAT: AA .Eliseo Morales MD, MD Date Time Electronically viewed and signed by .Eliseo Morales MD, on 08/15/2016 13:50 .T/
[2016-08-15 13:53] LABS: BACTERIA,URINE MANY
--- NOTE | 2016-08-15 16:27 | ERA ---
ER Documentation Chief Complaint Date/Time DATE: 08/15/16 TIME: 16:18 Chief Complaint vomiting and abdominal pain . s/p admission for choley. no surgery + fevers HPI 56-year-old woman complains of lower abdominal pain and a few episodes of clear nonbloody nonbilious emesis. She was seen and evaluated recently for cholelithiasis and admitted for similar symptoms although HIDA scan performed as an inpatient was normal and when patient's symptoms improved she was discharged. She admits to dysuria and increased urinary frequency, denies hematuria, no diarrhea, no chest pain or shortness of breath. Patient denies blood per rectum or melena appear ROS All systems reviewed and are negative except as per history of present illness. Medications Home Meds Active Scripts Ondansetron (Ondansetron Odt) 4 Mg Tab.rapdis, 4 MG PO Q6H Y for NAUSEA AND/OR VOMITING, #10 TAB Prov:SERENITY MORIN DO 07/24/16 Tramadol HCl (Tramadol HCl) 50 Mg Tablet, 50 MG PO Q6 Y for PAIN, #14 TAB Prov:SERENITY MORIN DO 07/24/16 Spironolactone* (Aldactone*) 25 Mg Tablet, 25 MG PO BID for 30 Days, TAB 3 Refills Prov:ANNA MIRANDA 02/12/16 Lisinopril* (Lisinopril*) 20 Mg Tablet, 20 MG PO DAILY for 30 Days, TAB 3 Refills Prov:ANNA MIRANDA 02/12/16 Furosemide* (Furosemide*) 40 Mg Tablet, 40 MG PO BID for 30 Days, TAB 3 Refills Prov:ANNA MIRANDA 02/12/16 Atorvastatin Calcium* (Atorvastatin Calcium*) 20 Mg Tab, 20 MG PO HS for 30 Days , TAB 3 Refills Prov:ANNA MIRANDA 10/07/15 Apixaban* (Eliquis*) 5 Mg Tablet, 5 MG PO BID for 30 Days, TAB 3 Refills Prov:ANNA MIRANDA 10/07/15 Reported Medications Metformin Hcl* (Metformin Hcl*) 1,000 Mg Tablet, 1000 MG PO WITH BREAKFAST DINNE , #30 TAB 07/24/16 Amiodarone Hcl* (Amiodarone Hcl*) 200 Mg Tablet, 200 MG PO DAILY, #30 TAB 8/2/16 Insulin Glargine* (Lantus*) 100 Unit/Ml Soln, 26 UNIT SC QHS, #1 VIAL 02/09/16 Discontinued Scripts Hydrocodone/Acetaminophen ([place] 5-325 Tablet) 1 Each Tablet, 1 EACH PO Q6, #8 TAB Prov:SERENITY MORIN DO 07/24/16 Allergies Allergies: Coded Allergies: meperidine HCl (Verified Allergy, Mild, ITCHINESS, 08/15/16) PMhx/Soc Hypertension, congestive heart failure with a left ventricular ejection fraction of 35%, paroxysmal atrial fibrillation, diabetes mellitus, cholelithiasis with a recent normal HIDA scan History of Surgery: Yes (hysterectomy, breast augmentation, cyst removed from left leg, right knee) Anesthesia Reaction: Yes (during knee surgery 2002) Hx Neurological Disorder: No Hx Respiratory Disorders: Yes (CPAP to sleep) Hx Cardiac Disorders: Yes (CHF, HTN) Hx Psychiatric Problems: No Hx Miscellaneous Medical Probl: No Hx Alcohol Use: No Hx Substance Use: No Hx Tobacco Use: No Smoking Status: Never smoker FmHx Family History: diabetes Physical Exam Vitals Vital Signs Date Time Temp Pulse Resp B/P Pulse Ox O2 Delivery O2 Flow Rate FiO2 08/15/16 14:28 81 16 115/65 94 Room Air 08/15/16 09:38 101.6 92 22 113/65 98 Physical Exam GENERAL: Well-developed, well-nourished, well-hydrated, in no apparent distress , looks nontoxic in appearance HEENT: Moist mucous membranes, pink conjunctiva, no cervical spine tenderness or step-off deformities, no goiter, no jaundice or icterus, extraocular movements intact without pain. No submandibular induration, and no pharyngeal erythema NEURO: Alert and oriented 3, cranial nerves II through XII intact bilaterally, pupils equal round reactive to light, no focal deficits or facial asymmetry, sensation intact distally Strength 5/5 in upper and lower extremities bilaterally CARDIAC: Regular rate and rhythm, no murmurs rubs or gallops LUNGS: Clear bilaterally no wheezing crackles or stridor ABDOMEN: Soft nontender, no guarding, no rigidity, no rebound, no psoas sign no obturator sign. Normoactive bowel sounds SKIN: Warm and dry to touch, no abrasions, contusions, or hematomas, no lacerations, no ecchymosis, no target lesions, and without ulcers EXTREMITIES: No clubbing cyanosis or edema, calves are bilaterally symmetrical, no Homans sign, no popliteal cord sign. Distal pulses equal and bilateral PSYCH: Normal affect without agitation or irritability Result Diagram: 08/15/16 1245 08/15/16 1245 Results 24 hrs Laboratory Tests Test 08/15/16 12:45 Activated Partial Thromboplast Time 32.0Sec Alanine Aminotransferase (ALT/SGPT) 12IU/L Albumin 3.9g/dl Albumin/Globulin Ratio 1.08 Alkaline Phosphatase 83IU/L Anion Gap 21 Aspartate Amino Transf (AST/SGOT) 15IU/L Basophils # 0.010^3/ul Basophils % 0.0% Blood Urea Nitrogen 34mg/dl Calcium Level 9.4mg/dl Carbon Dioxide Level 27mmol/L Chloride Level 90mmol/L Creatinine 1.77mg/dl Direct Bilirubin 0.00mg/dl Eosinophils # 0.010^3/ul Eosinophils % 0.0% Globulin 3.60g/dl Glucose Level 296mg/dl Hematocrit 30.7% Hemoglobin 10.7g/dl INR International Normalized Ratio 1.05 Indirect Bilirubin 0.6mg/dl Lactic Acid Level 2.9mmol/L Lipase 52U/L Lymphocytes # 0.710^3/ul Lymphocytes % 5.7% Mean Corpuscular Hemoglobin 31.7pg Mean Corpuscular Hemoglobin Concent 34.9g/dl Mean Corpuscular Volume 90.9fl Mean Platelet Volume 8.4fl Monocytes # 0.710^3/ul Monocytes % 6.0% Neutrophils # 10.810^3/ul Neutrophils % 88.3% Nucleated Red Blood Cells # 0.010^3/ul Nucleated Red Blood Cells % 0.0/100WBC Platelet Count 83140^3/UL Potassium Level 4.8mmol/L Prothrombin Time 13.7Sec Prothrombin Time Ratio 1.1 Red Blood Count 3.3710^6/ul Red Cell Distribution Width 12.0% Sodium Level 133mmol/L Total Bilirubin 0.6mg/dl Total Protein 7.5g/dl Troponin I 0.012ng/ml Urine Bacteria MANY Urine Bilirubin NEGATIVE Urine Clarity CLEAR Urine Color LT. YELLOW Urine Epithelial Cells MODERATE Urine Glucose 0.1%% Urine Hemoglobin 2+ Urine Ketones NEGATIVE Urine Leukocyte Esterase TRACE Urine Microscopic RBC 5-10/HPF Urine Microscopic WBC 25-50/HPF Urine Nitrite NEGATIVE Urine Specific [place] >=1.030 Urine Total Protein 2+ Urine Urobilinogen 0.2 E.U./dL Urine pH 5.0 White Blood Count 12.210^3/ul Current Medications Medications (Trade) Dose Ordered Sig/Rizwan Route PRN Reason Start Time Stop Time Status Last Admin Dose Admin Sodium Chloride 1000 ml 1,000 ml BOLUS OVER 2 HOURS STAT IV* 08/15/16 11:56 08/15/16 12:07 DC 08/15/16 12:56 Piperacillin Sod/ Tazobactam Sod (Zosyn 3.375gm/ 100 ml (Pmx)) 100 ml @ 200 mls/hr ONCE ONCE IVPB 08/15/16 12:00 08/15/16 12:29 DC 08/15/16 12:56 Ibuprofen (Motrin) 600 mg ONCE ONCE PO 08/15/16 12:00 08/15/16 12:08 DC 08/15/16 12:00 Ondansetron HCl (Zofran Inj) 4 mg ONCE STAT IV 08/15/16 12:01 08/15/16 12:07 DC 08/15/16 12:56 Morphine Sulfate (morphine) 4 mg ONCE STAT IV 08/15/16 12:01 08/15/16 12:07 DC 08/15/16 12:56 Procedures/MDM IV line was established patient was placed on media monitor rhythm strip revealed a sinus rhythm at about 80 bpm with upright P and T waves. Patient was febrile. Blood and urine cultures have been ordered results are pending I will follow-up. EKG performed, read by me: 87 bpm, normal sinus rhythm, normal axis, no acute ST segment changes, narrow QRS complex, with good R-wave progression in precordial leads. One AP view of the chest performed, read by me reveals no acute infiltrates, normal mediastinum, sharp costophrenic and cardiac borders, no air under the diaphragm. Otherwise unremarkable chest x-ray. Gallbladder ultrasound was performed revealing cholelithiasis no signs on ultrasound for cholecystitis. Please refer to radiologist dictation for full report. CBC revealed a white count of 12, electrolytes revealed dehydration with an elevated BUN/creatinine ratio at 34/1.8, liver function tests were unremarkable , troponin was negative, lactic acid elevated at 2.9. I administered 1 L normal saline intravenously, this is less than 30 cc/kg as patient does have concerning heart failure with a depressed ejection fraction. She also received ibuprofen 600 mg p.o., Zosyn 3.375 g IV, morphine 4 mg IV, and Zofran 4 mg IV with good effect. Patient's infectious symptoms have not stabilized and the patient is at risk of rapid decompensation. The patient will be admitted for careful hydration, antibiotic therapy, and infectious source control. Severe Sepsis Assessment: Infectious Source: Bladder Severe Sepsis Managment: Blood Cultures X 2 before broad spectrum antibiotics initiated within 3 hours of recognition. 30 ml/kg NS bolus Completed Initial Lactate: Elevated at 2.9 Repeat Lactate pending Critical Care: Time: 36 minutes Treatments/Evaluations: Emergent fluid management, while maintaining close respiratory support. Immediate broad spectrum antibiotic therapy. Simultaneous assessment for possible sources in order to direct therapy. Consideration for invasive and chemical support to prevent respiratory or cardiac collapse. Septic Shock Assessment (1 hour post 30 ml/kg fluid bolus): Hypotension (SBP < 90 or 40 mmHg drop, MAP < 65): No Lactic acid > 4.0 No Perfusion Reassessment for Septic Shock: Temp afebrile, pulse 80, RR 16, BP 150/86 Heart Exam: Regular rate rhythm Lung Exam: No Crackles Capillary Refill: Less than 2 second Peripheral Pulses: Radially present Skin: [place] and dry Hypotensive Treatment (not required for isolated lactic acid elevation): Comfort Care: No Central LIne: Not indicated Vasopressor started: Not indicated I considered further perfusion assessment with CVP measurement, SCVO2, bedside ultrasound volume assessment, passive leg raise, trial of further fluid bolus. And preceded with IV fluids and antibiotic Accepting Care Team: Current data and ongoing care discussed. Time: Time of admission Primary Provider: Dr. Benítez Outstanding Data: none Departure Diagnosis: Primary Impression: UTI (urinary tract infection) Qualified Code: N30.00 - Acute cystitis without hematuria Additional Impressions: Intractable vomiting Qualified Code: R11.2 - Intractable vomiting with nausea, unspecified vomiting type Cholelithiasis Qualified Code: K80.20 - Calculus of gallbladder without cholecystitis without obstruction Dehydration Condition: NELLY Corrales MD Aug 15, 2016 16:27
[2016-08-15 17:47] VITALS: BP 127/59; RESP 23
[2016-08-15 17:51] VITALS: BP 127/59; PULSE 75; RESP 20
[2016-08-15] MEDS ORDERED: ACETAMINOPHEN 325 MG TAB PO PRN (18:30)
[2016-08-15] MEDS ORDERED: NACL 0.9% 3 ML SYG IV SCH (18:30)
[2016-08-15] MEDS ORDERED: GLUCOSE GEL 15 GRAM TUBE PO PRN ×2 (19:00)
[2016-08-15] MEDS ORDERED: GLUCAGON 1 MG INJ IM PRN (19:00)
[2016-08-15] MEDS ORDERED: GLUCOSE GEL 15 GRAM TUBE BUCCAL PRN (19:00)
[2016-08-15] MEDS ORDERED: DEXTROSE 50% 50 ML SYRINGE IV PRN ×2 (19:00)
--- NOTE | 2016-08-15 19:08 | HP ---
DATE OF ADMISSION: 08/15/2016 CHIEF COMPLAINT: Nausea and vomiting over last couple of days. HISTORY OF PRESENT ILLNESS: The patient is a 56-year-old pleasant female with multiple comorbiditie s, who was presented to the emergency room for complaints of vomiting and abdominal pain. Patient w as recently evaluated in the hospital for a lithiasis. Patient had a HIDA scan was performed, whic h was normal. Patient stated that she was offered surgery; however, refused surgery at that time du e to her multiple medical problems, was afraid of complications, and patient was discharged home. I n the emergency room, patient underwent a gallbladder ultrasound, which revealed cholelithiasis with out sonographic evidence of acute cholecystitis, enlarged fatty liver. The patient also underwent c hest x-ray, which showed mild left ventricular enlargement unchanged compared to previous study, no evidence of acute infiltrate or congestive heart failure, spondylosis of the thoracic spine. Michelle bishop was noted to have a urinary tract infection per urinalysis, was given Zosyn, and admitted for furt her evaluation and management to medical/surgical floor. Patient had fever of 101 on admission. De nies any shortness of breath, denies any chest pain, denies any diarrhea. PAST MEDICAL HISTORY: Positive for diabetes, hypertension, congestive heart failure, hyperlipidemia , sleep apnea. The patient uses a CPAP machine at home; however, stated that it has been difficult due to nasal congestion that she recently developed. Patient also with bilateral knees arthritis, p aroxysmal atrial fibrillation, and cholelithiasis with a recent normal HIDA scan. PAST SURGICAL HISTORY: Status post cyst removal from the left lower extremity, right knee surgery, status post hysterectomy, status post breast augmentation. FAMILY HISTORY: Positive for diabetes. SOCIAL HISTORY: Patient lives at home with her daughter. Patient denies any tobacco use, denies an y illicit drug use, denies any alcohol use. ALLERGIES: PATIENT IS ALLERGIC TO MEPERIDINE. MEDICATIONS ON ADMISSION: 1. Zofran p.r.n. for nausea. 2. Tramadol p.r.n. for pain. 3. Aldactone. 4. Lisinopril. 5. Lasix. 6. Atorvastatin. 7. Calcium. 8. Eliquis. 9. Metformin. 10. Amiodarone. 11. Insulin Lantus 26 units subcutaneous nightly. REVIEW OF SYSTEMS: A 12-point review of systems is negative unless what mentioned in the HPI. PHYSICAL ASSESSMENT: GENERAL: Well-developed, well-nourished female, currently awake, alert. VITAL SIGNS: Temperature 97.7, pulse 75, blood pressure is 127/59, respiratory rate 20, oxygen satu ration 96% on room air. HEENT: Head is atraumatic, normocephalic. Pupils equal, round, reactive to light and accommodation . Oral mucosa is pink and moist. NECK: Supple, no cervical lymphadenopathy, no thyromegaly. CHEST: Lungs clear bilaterally. There is no rhonchi, wheezes, rales noted. CARDIOVASCULAR: Normal sinus rhythm. No murmurs, gallops, clicks, rubs noted. EXTREMITIES: There is no edema, clubbing, cyanosis. SKIN: No rash, petechiae noted. NEUROLOGIC: Patient is awake, alert, and oriented x4. No focal deficits noted. Motor strength 5/5 . EXTREMITIES: Good. GASTROINTESTINAL: Abdomen is protuberant, soft, nondistended, nontender. Bowel sounds present. No guarding noted. LABORATORY DATA: On admission. CBC: white blood cells 12.2, hemoglobin 10.7, hematocrit 30.7, josé manuel telets 216. Chemistry: sodium is 133, potassium 4.8, chloride 90, carbon dioxide 27, anion gap 21, BUN is 34, creatinine 1.77, glucose 296. Lactic acid is 2.9. Urinalysis is positive for leukocyte esterase and many bacteria. ASSESSMENT AND PLAN 1. Acute cystitis. Continue patient on Zosyn. Follow up on urine cultures. 2. Sepsis with fever, leukocytosis, and elevated lactic acid. 3. Diabetes mellitus type 2. Continue patient on metformin and Lantus. Continue NovoLog per mild algorithm sliding scale. 4. Congestive heart failure with ejection fraction of 35%. Continue patient on Lasix and Aldactone . 5. Paroxysmal atrial fibrillation. Continue Eliquis. 6. Hypertension. Continue lisinopril. 7. Acute kidney injury. Continue IV fluids. Monitor BUN and creatinine. 8. Will continue Zofran p.r.n. for nausea and morphine p.r.n. for pain. 9. Sequential compression device for deep venous thrombosis prophylaxis in addition to Levaquin. S tart Protonix for peptic ulcer disease prophylaxis. Further recommendations based on clinical course. Plan of care discussed with Dr. Benítez. Dictated By: ANUSHA DIAZ GRAPHOTYPE OPERATOR for SHELDON BENÍTEZ MD SR/NTS Conf#: [id number] DID#: [id number]
[2016-08-15] MEDS: D5W-0.45 NACL + KCL 20 MEQ 1,000 ML IV SCH (19:13)
[2016-08-15] MEDS: APIXABAN 5 MG TABLET PO SCH (20:37)
[2016-08-15] MEDS: ATORVASTATIN 20 MG TAB PO SCH (20:37)
[2016-08-15] MEDS: SPIRONOLACTONE 25 MG TAB PO SCH (20:37)
[2016-08-15] MEDS: FUROSEMIDE 40 MG TAB PO SCH (20:37)
[2016-08-15] MEDS: FLUTICASONE 0.05% 16 GM NAS SPRAY NASAL SCH (20:37)
[2016-08-15] MEDS: INSULIN ASPART [NOVOLOG] 3 ML PEN SC SCH (20:43)
[2016-08-15] MEDS: INSULIN GLARGINE [LANtus] 3 ML PEN SC SCH (20:45)
[2016-08-15 20:54] VITALS: BP 110/56; RESP 20
[2016-08-15] MEDS ORDERED: PIPER-TAZO 2.25 GM (PMX) 50 ML IVPB SCH (22:00)
[2016-08-16] MEDS: ACCUCHECK XX SCH (01:44)
[2016-08-16] MEDS: GUAIFENESIN/DM 5ML CUP PO PRN ×2 (02:00→09:36)
[2016-08-16] MEDS: IMIPENEM-CILAST 500MG IV (PMX) 100 ML IVPB SCH ×3 (05:37→18:02)
[2016-08-16] MEDS: PANTOPRAZOLE 40 MG INJ IV SCH (05:37)
[2016-08-16 06:46] LABS: BASOPHILS % 0.1 % (0.0-2.0); EOSINOPHILS % 0.1 % (0.0-7.0); HEMATOCRIT 29.4 % (37.0-47.0); HEMOGLOBIN 10.3 g/dl (12.0-16.0); LYMPHOCYTES # 0.5 10^3/ul (0.8-2.9); LYMPHOCYTES % 6.8 % (15.0-51.0); MEAN CORPUSCULAR HEMOGLOBIN 31.7 pg (29.0-33.0); MEAN CORPUSCULAR HGB CONC 34.9 g/dl (32.0-37.0); MEAN CORPUSCULAR VOLUME 90.9 fl (82.0-101.0); MEAN PLATELET VOLUME 8.4 fl (7.4-10.4); MONOCYTE # 0.4 10^3/ul (0.3-0.9); MONOCYTES % 5.5 % (0.0-11.0); NEUTROPHIL # 6.9 10^3/ul (1.6-7.5); NEUTROPHILS % 87.5 % (39.0-77.0); PLATELET COUNT 192 10^3/UL (140-440); RED BLOOD COUNT 3.23 10^6/ul (4.20-5.40); RED CELL DISTRIBUTION WIDTH 12.2 % (11.5-14.5); UNCORRECTED WBC 7.9 10^3/ul (4.8-10.8); WHITE BLOOD COUNT 7.9 10^3/ul (4.8-10.8)
[2016-08-16 06:55] LABS: ALBUMIN 3.3 g/dl (3.3-4.9)
[2016-08-16 06:56] LABS: POTASSIUM 4.5 mmol/L (3.5-5.1)
[2016-08-16 06:58] LABS: BILIRUBIN,INDIRECT 0.4 mg/dl (0-1.1); BILIRUBIN,TOTAL 0.4 mg/dl (0.2-1.3); CREATININE 1.63 mg/dl (0.44-1.00); TOTAL PROTEIN 6.6 g/dl (6.1-8.1)
[2016-08-16 06:59] LABS: CALCIUM 8.6 mg/dl (8.4-10.2)
[2016-08-16 07:20] LABS: CONDITION 1
[2016-08-16 07:26] LABS: THYROID STIMULATING HORMONE 1.32 MIU/L (0.465-4.680)
[2016-08-16] MEDS: INSULIN ASPART [NOVOLOG] 3 ML PEN SC SCH ×5 (07:54→21:00)
[2016-08-16] MEDS: metFORMIN 500 MG TAB PO SCH ×2 (07:57→18:00)
[2016-08-16] MEDS: LISINOPRIL 20 MG TAB PO SCH (09:37)
[2016-08-16] MEDS: FUROSEMIDE 40 MG TAB PO SCH ×2 (09:37→21:00)
[2016-08-16] MEDS: FLUTICASONE 0.05% 16 GM NAS SPRAY NASAL SCH ×2 (09:37→21:03)
[2016-08-16] MEDS: AMIODARONE 200 MG TAB PO SCH (09:38)
[2016-08-16] MEDS: APIXABAN 5 MG TABLET PO SCH ×2 (09:38→21:00)
[2016-08-16] MEDS: SPIRONOLACTONE 25 MG TAB PO SCH ×2 (09:38→21:00)
[2016-08-16] MEDS: D5W-0.45 NACL + KCL 20 MEQ 1,000 ML IV SCH (09:39)
[2016-08-16 09:45] VITALS: BP 142/70; PULSE 86
[2016-08-16] MEDS: ONDANSETRON 4 MG INJ IV PRN (13:31)
--- NOTE | 2016-08-16 17:24 | PN ---
Date/Time of Note Date/Time of Note DATE: 08/16/16 TIME: 17:17 Assessment/Plan VTE Prophylaxis VTE Prophylaxis Intervention: SCD's Lines/Catheters IV Catheter Type (from Nrs): Peripheral IV Assessment/Plan Chief Complaint/Hosp Course ASSESSMENT AND PLAN - Acute cystitis. Continue patient on Zosyn. Follow up on urine cultures. - Sepsis with fever, leukocytosis, and elevated lactic acid and gram-negative rods bacteremia. Dr. Mena is asked to see patient in infection disease consultation. - Diabetes mellitus type 2. Hemoglobin A1c is 9.2. Continue Lantus not pre- meal NovoLog and NovoLog per mild algorithm sliding scale. - Congestive heart failure with ejection fraction of 35%. Continue patient on Lasix and Aldactone. - Paroxysmal atrial fibrillation. Continue Eliquis. - Hypertension. Continue lisinopril. - Acute kidney injury. Continue IV fluids. Monitor BUN and creatinine. - Nausea and vomiting, continue Zofran p.r.n. for nausea and morphine p.r.n. for pain. Dr. Kumar is following in gastroenterology consultation. Continue Protonix for peptic ulcer disease prophylaxis. Further recommendations based on clinical course. Plan of care discussed with Dr. Benítez. Problems: Subjective 24 Hr Interval Summary Free Text/Dictation Patient's complains of nausea vomiting, planes of headache, able to ambulate in the hallway, continued on IV fluids. Exam/Review of Systems Vital Signs Vitals Vital Signs Date Time Temp Pulse Resp B/P Pulse Ox O2 Delivery O2 Flow Rate FiO2 08/16/16 09:45 86 142/70 08/15/16 20:54 98.1 20 96 08/15/16 17:51 Room Air Intake and Output 08/15/16 08/15/16 08/16/16 14:59 22:59 06:59 Intake Total 100 ml 1160 ml Balance 100 ml 1160 ml Exam GENERAL: Well-developed, well-nourished female, currently awake, alert. HEENT: Head is atraumatic, normocephalic. PERRLA. NECK: Supple, no cervical lymphadenopathy, no thyromegaly. CHEST: Lungs clear bilaterally. There is no rhonchi, wheezes, rales noted. CARDIOVASCULAR: Normal sinus rhythm. No murmurs, gallops, clicks, rubs noted. GASTROINTESTINAL: Abdomen is protuberant, soft, nondistended, nontender. Bowel sounds present. EXTREMITIES: There is no edema, clubbing, cyanosis. SKIN: No rash, petechiae noted. NEUROLOGIC: Patient is awake, alert, and oriented x4. Results Result Diagram: 08/16/16 0555 08/16/16 0555 Results 24 hrs Laboratory Tests Test 08/15/16 18:31 08/15/16 20:29 08/15/16 21:03 08/16/16 01:39 Bedside Glucose 229 H 292 H 281 H Lactic Acid Level 1.2 Test 08/16/16 05:55 08/16/16 07:48 08/16/16 11:59 Alanine Aminotransferase (ALT/SGPT) 21 Albumin 3.3 Albumin/Globulin Ratio 1.00 Alkaline Phosphatase 86 Anion Gap 18 H Aspartate Amino Transf (AST/SGOT) 21 Basophils # 0.0 Basophils % 0.1 Blood Urea Nitrogen 33 H Calcium Level 8.6 Carbon Dioxide Level 28 Chloride Level 93 L Creatinine 1.63 H Direct Bilirubin 0.00 Eosinophils # 0.0 Eosinophils % 0.1 Globulin 3.30 H Glucose Level 311 H Hematocrit 29.4 L Hemoglobin 10.3 L Hemoglobin A1c 9.2 H Indirect Bilirubin 0.4 Lymphocytes # 0.5 L Lymphocytes % 6.8 L Mean Corpuscular Hemoglobin 31.7 Mean Corpuscular Hemoglobin Concent 34.9 Mean Corpuscular Volume 90.9 Mean Platelet Volume 8.4 Monocytes # 0.4 Monocytes % 5.5 Neutrophils # 6.9 Neutrophils % 87.5 H Nucleated Red Blood Cells # 0.0 Nucleated Red Blood Cells % 0.0 Platelet Count 192 Potassium Level 4.5 Red Blood Count 3.23 L Red Cell Distribution Width 12.2 Sodium Level 134 L Thyroid Stimulating Hormone (TSH) 1.320 Total Bilirubin 0.4 Total Protein 6.6 White Blood Count 7.9 # Bedside Glucose 275 H 239 H Medications Medications Current Medications Potassium Chloride/Dextrose/ Sod Cl (D5-1/2ns + KCl 20 Meq) 1,000 ml @ 70 mls/ hr [id number] IV Last administered on 08/16/16 09:39; Admin Dose 70 MLS/HR; Start 08/15/16 at 18:25 Ondansetron HCl (Zofran Inj) 4 mg Q6H PRN IV NAUSEA AND/OR VOMITING Last administered on 08/16/16 13:31; Admin Dose 4 MG; Start 08/15/16 at 18:30 Acetaminophen (Tylenol Tab) 650 mg Q6H PRN PO PAIN LEVEL 1-3 OR FEVER; Start at 18:30 Morphine Sulfate (morphine) 2 mg Q4H PRN IV SEVERE PAIN LEVEL 7-10; Start at 18:30 Pantoprazole (Protonix Iv) 40 mg DAILY@06 IV Last administered on 08/16/16 05: 37; Admin Dose 40 MG; Start 08/16/16 at 06:00 Amiodarone HCl (Cordarone) 200 mg DAILY PO Last administered on 08/16/16 09:38 ; Admin Dose 200 MG; Start 08/16/16 at 09:00 Apixaban (Eliquis) 5 mg BID PO Last administered on 08/16/16 09:38; Admin Dose 5 MG; Start 08/15/16 at 21:00 Atorvastatin Calcium (Lipitor) 20 mg HS PO Last administered on 08/15/16 20:37 ; Admin Dose 20 MG; Start 08/15/16 at 21:00 Furosemide (Lasix) 40 mg BID PO Last administered on 08/16/16 09:37; Admin Dose 40 MG; Start 08/15/16 at 21:00 Insulin Glargine (Lantus) 26 unit QHS SC Last administered on 08/15/16 20:45; Admin Dose 26 UNIT; Start 08/15/16 at 21:00 Lisinopril (Zestril) 20 mg DAILY PO Last administered on 08/16/16 09:37; Admin Dose 20 MG; Start 08/16/16 at 09:00 Spironolactone (Aldactone) 25 mg BID PO Last administered on 08/16/16 09:38; Admin Dose 25 MG; Start 08/15/16 at 21:00 Fluticasone Propionate (Flonase 0.05% Nasal) 1 spray BID NASAL Last administered on 08/16/16 09:37; Admin Dose 1 SPRAY; Start 08/15/16 at 21:00 Diagnostic Test (Pha) (Accucheck) 1 ea 02 XX Last administered on 08/16/16 01: 44; Admin Dose 1 EA; Start 2/7/17 at 02:00 Miscellaneous Information 1 ea NOTE XX ; Start 08/15/16 at 19:00 Glucose (Glutose) 15 gm Q15M PRN PO DECREASED GLUCOSE; Start 08/15/16 at 19:00 Glucose (Glutose) 22.5 gm Q15M PRN PO DECREASED GLUCOSE; Start 08/15/16 at 19:00 Dextrose (D50w Syringe) 25 ml Q15M PRN IV DECREASED GLUCOSE; Start 08/15/16 at 19:00 Dextrose (D50w Syringe) 50 ml Q15M PRN IV DECREASED GLUCOSE; Start 08/15/16 at 19:00 Glucagon (Glucagen) 1 mg Q15M PRN IM DECREASED GLUCOSE; Start 08/15/16 at 19:00 Glucose (Glutose) 15 gm Q15M PRN BUCCAL DECREASED GLUCOSE; Start 08/15/16 at 19: 00 Guaifenesin/ Dextromethorphan 10 ml 10 ml Q4H PRN PO cough Last administered on 08/16/16 09:36; Admin Dose 10 ML; Start 08/16/16 at 02:00 Imipenem/ Cilastatin Sodium (Primaxin 500 Mg/ 100 ml (Pmx)) 100 ml @ 100 mls/ hr Q6 IVPB Last administered on 08/16/16 12:16; Admin Dose 100 MLS/HR; Start at 06:00 ANUSHA DIAZ Aug 16, 2016 17:24
[2016-08-16] MEDS ORDERED: BISACODYL 10 MG SUPP PR PRN (17:30)
[2016-08-16] MEDS ORDERED: SOD CHLORIDE 0.9% 1,000 ML IV SCH (17:30)
--- NOTE | 2016-08-16 18:03 | CONS ---
DATE OF ADMISSION: 08/15/2016 DATE OF CONSULTATION: 08/16/2016 TYPE OF CONSULTATION: Gastroenterology. Dear Dr. Benítez: Thank you for asking me to see Mrs. Ashley in GI consultation. HISTORY OF PRESENT ILLNESS: The patient, as you know, is a 56-year-old female, is admitted to the hospital because of persistent abdominal pain and nausea and vomiting. She says for the past several months she has been experiencing abdominal pain, nausea, vomiting, and lately she has been vomiting coffee-ground material. She was told that she has cholelithiasis and she needed a cholecystectomy, but apparently patient turned it down. Currently, ultrasound shows gallstones but no sonographic evidence of cholecystitis. The patient h as no history of bleeding from the rectum. She has constipation, no diarrhea, no rectal bleeding. She does have some heartburn but mostly she has been vomiting for the past several months periodical ly. MEDICATIONS: Currently include: 1. Zofran. 2. Tramadol. 3. Aldactone. 4. Lisinopril. 5. Lasix. 6. Atorvastatin. 7. Calcium. 8. Eliquis. 9. Metformin. 10. Amiodarone. 11. Insulin. REVIEW OF SYSTEM: Positive for diabetes, hypertension, history of congestive heart failure, dyslipi demia, sleep apnea, she uses CPAP machine at home. The other medical problems include atrial fibrillation. SOCIAL HISTORY: Patient does not smoke or drink. PAST SURGICAL HISTORY: Includes hysterectomy many years ago. FAMILY HISTORY: Positive for diabetes. PHYSICAL EXAMINATION: GENERAL: The patient is a 56-year-old female who at this time, she is alert, well built. VITAL SIGNS: She is afebrile. CARDIOVASCULAR: Normal heart sounds. RESPIRATORY: Normal breath sounds. ABDOMEN: Shows soft abdomen with no palpable masses, no tenderness, no distention. She has obese abdomen. LABORATORY WORKUP: Potassium 4.5, sodium 134, BUN 33, creatinine 1.63, bilirubin 0.4, direct 0.4, A ST 21, ALT 21, alkaline phosphatase 86, lipase is 52, which is normal. The WBC count is 7900, hemoglobin 10.3, platelet count 192,000. Prothrombin time 13.7, INR of 1.05. IMAGING STUDIES: Gallbladder ultrasound showed evidence of gallstones with no cholecystitis. CAT s can of the abdomen done in July shows hepatomegaly, gallstones, diverticulosis of the colon. The hepatobiliary scan is normal on 07/29/2016. CLINICAL IMPRESSION: The patient presenting with history of chronic recurrent abdominal pain, heart burn, vomiting coffee-ground material, rule out gastroesophageal reflux disease, peptic ulcer diseas e. She could have diabetic gastroparesis, has hypertension, history of arteriosclerotic heart dise ase. Chest x-ray shows no congestive heart failure. PLAN: At this time, recommend upper endoscopy. Once again, doctor, thank you for this consultation. Dictated By: YARED CANTRELL MD NC/NTS Conf#: [id number] DID#: [id number] CC: SHELDON BENÍTEZ MD; YARED CANTRELL MD;*End*
[2016-08-16] MEDS: ACETAMINOPHEN 325 MG TAB PO PRN (18:23)
[2016-08-16 19:19] VITALS: BP 141/69; RESP 18
[2016-08-16] MEDS: ATORVASTATIN 20 MG TAB PO SCH (21:00)
[2016-08-16] MEDS: INSULIN GLARGINE [LANtus] 3 ML PEN SC SCH (21:00)
[2016-08-16 21:10] VITALS: BP 115/68
[2016-08-16] MEDS ORDERED: INSULIN GLARGINE [LANtus] 3 ML PEN SC ONE (21:30)
[2016-08-16] MEDS: DEXTROSE 5%-0.45% NACL 1,000 ML IV SCH (22:14)
[2016-08-17] VITALS (13 sets, daily range): BP systolic 128–174; BP diastolic 67–80; PULSE 60–72; RESP 12–20
[2016-08-17] MEDS: IMIPENEM-CILAST 500MG IV (PMX) 100 ML IVPB SCH ×3 (00:25→11:46)
[2016-08-17] MEDS: ACCUCHECK XX SCH (02:00)
[2016-08-17] MEDS: PANTOPRAZOLE 40 MG INJ IV SCH (06:01)
[2016-08-17 06:11] LABS: BASOPHILS % 0.3 % (0.0-2.0); EOSINOPHILS % 0.6 % (0.0-7.0); HEMATOCRIT 29.2 % (37.0-47.0); HEMOGLOBIN 10.2 g/dl (12.0-16.0); LYMPHOCYTES # 0.9 10^3/ul (0.8-2.9); LYMPHOCYTES % 15.7 % (15.0-51.0); MEAN CORPUSCULAR HEMOGLOBIN 31.8 pg (29.0-33.0); MEAN CORPUSCULAR HGB CONC 34.8 g/dl (32.0-37.0); MEAN CORPUSCULAR VOLUME 91.2 fl (82.0-101.0); MEAN PLATELET VOLUME 8.1 fl (7.4-10.4); MONOCYTE # 0.8 10^3/ul (0.3-0.9); MONOCYTES % 13.6 % (0.0-11.0); NEUTROPHIL # 3.9 10^3/ul (1.6-7.5); NEUTROPHILS % 69.8 % (39.0-77.0); PLATELET COUNT 224 10^3/UL (140-440); RED CELL DISTRIBUTION WIDTH 12.1 % (11.5-14.5); UNCORRECTED WBC 5.6 10^3/ul (4.8-10.8); WHITE BLOOD COUNT 5.6 10^3/ul (4.8-10.8)
[2016-08-17 06:22] LABS: POTASSIUM 4.5 mmol/L (3.5-5.1)
[2016-08-17 06:23] LABS: CONDITION 1
[2016-08-17 06:24] LABS: CREATININE 1.26 mg/dl (0.44-1.00)
[2016-08-17 06:25] LABS: CALCIUM 8.9 mg/dl (8.4-10.2); CREATININE 1.35 mg/dl (0.44-1.00)
[2016-08-17] MEDS: metFORMIN 500 MG TAB PO SCH (08:15)
[2016-08-17] MEDS: INSULIN ASPART [NOVOLOG] 3 ML PEN SC SCH ×7 (08:36→21:00)
[2016-08-17] MEDS: ONDANSETRON 4 MG INJ IV PRN (08:51)
[2016-08-17] MEDS: FLUTICASONE 0.05% 16 GM NAS SPRAY NASAL SCH ×2 (09:00→21:31)
[2016-08-17] MEDS ORDERED: MIDAZOLAM 1 MG/ML 2 ML INJ ONE (09:19)
[2016-08-17] MEDS ORDERED: PROPOFOL 20 ML ONE (09:19)
[2016-08-17] MEDS ORDERED: FENTAnyl 50 MCG/ML VIAL ONE (09:19)
[2016-08-17] MEDS: APIXABAN 5 MG TABLET PO SCH ×2 (10:42→21:30)
[2016-08-17] MEDS: SPIRONOLACTONE 25 MG TAB PO SCH ×2 (10:43→21:30)
[2016-08-17] MEDS: AMIODARONE 200 MG TAB PO SCH (10:43)
[2016-08-17] MEDS: LISINOPRIL 20 MG TAB PO SCH ×2 (10:43→22:22)
[2016-08-17] MEDS: FUROSEMIDE 40 MG TAB PO SCH ×2 (10:44→21:34)
[2016-08-17] MEDS ORDERED: BARIUM SULF 2% 450 ML BTL (BERRY SMOOTHIE) PO ONE (11:00)
--- NOTE | 2016-08-17 12:43 | GILP ---
DATE OF PROCEDURE: PROCEDURE: Esophagogastroduodenoscopy. PREOPERATIVE DIAGNOSIS: The patient presenting with a history of vomiting coffee-ground material fo r the past several days, abdominal pain, rule out peptic ulcer disease, gastritis. POSTOPERATIVE DIAGNOSES: 1. Diffuse patchy gastritis. 2. Mild duodenitis. 3. Esophagus appeared normal. DESCRIPTION OF PROCEDURE: After the informed written consent was obtained, the patient was asked to lie on the left lateral side. Intravenous anesthesia was given by anesthesiologist, Dr. Hernandez. W hen the patient became somnolent, the Olympus video upper endoscope was introduced into the orophary nx, then into the esophagus. Esophagus showed normal mucosal pattern with no ulcer, no esophagitis. The scope at this time was advanced into the stomach. Stomach showed evidence of several areas of erythema, mostly in the fundus and the antrum. This is a mild gastritis. Biopsy was done from the antrum, lesser curvature and the fundus to rule out Helicobacter pylori infection. The scope at th is time was advanced into the duodenum. Duodenum showed minimal duodenitis. At this time, scope wa s withdrawn and the procedure was terminated. PLAN: Recommend proton pump inhibitor therapy to be continued. Wait for the H. pylori testing. Dictated By: YARED WHITAKER/ENOC Conf#: [id number] DID#: [id number] CC: SHELDON RIVERA MD;*End*
[2016-08-17] MEDS: morphine 2 MG INJ IV PRN (13:38)
[2016-08-17] MEDS: DEXTROSE 5%-0.45% NACL 1,000 ML IV SCH (13:48)
[2016-08-17] MEDS ORDERED: IODIXANOL LOCM 100 ML BTL ONE (14:50)
[2016-08-17] MEDS ORDERED: SOD CHLORIDE 0.9% 100 ML ONE (14:50)
[2016-08-17] MEDS: CEFTRIAXONE 1 GM/50 ML (PMX) 50 ML IVPB SCH (16:17)
--- NOTE | 2016-08-17 16:30 | RADRPT ---
PROCEDURE: Retroperitoneal US. CLINICAL INDICATION: Flank pain, UTI TECHNIQUE: Multiple sonographic images of the kidneys and retroperitoneum were obtained. The imag es were reviewed on a PACS workstation. COMPARISON: 08/17/2016, 08/15/2016 FINDINGS: The kidneys are normal in size, contour, cortical thickness and cortical echogenicity. The right kidney measures 12.5 cm. The left kidney measures 11.0 cm. No kidney stones are visualized. There is no evidence for hydronephrosis. The urinary bladder is normal. RPTAT: AA IMPRESSION: Unremarkable retroperitoneal ultrasound. .Diego Blanchard MD, Date Time Electronically viewed and signed by .Diego Blanchard MD, on 08/17/2016 16:30 .S/
--- NOTE | 2016-08-17 16:52 | CONS ---
DATE OF ADMISSION: 08/15/2016 DATE OF CONSULTATION: I am seeing this patient for Dr. Mena. REQUESTING PHYSICIAN: Michael Benítez MD HISTORY OF PRESENT ILLNESS: The patient is a 56-year-old Afro-[place] female who was admitted on 0 08/15/2016 with a chief complaint of lower abdominal pain and vomiting, nonbilious, nonbloody vomitus . The patient previously had a recent laparoscopic cholecystectomy for gallstones. The patient als o admitted to having dysuria and frequency. On admission, her white count was 12,200. Urinalysis h ad specific gravity of 1.030. There was trace leukocyte esterase, 5 to 10 RBCs, 25 to 50 WBCs, many bacteria, +2 hemoglobin and 0.1% glucose, protein was 2+. The patient subsequently grew out E. col i from the blood from two blood cultures. Prior to that the patient grew urine gram-negative rods 2 types from her urine and had a negative MRSA test. Also, prior to this the patient was begun treat ment with Zosyn intravenously. The patient was seen by Dr. Gray who performed upper endoscopy to investigate the patient's nausea and vomiting. She was noted to have several areas of gastritis in her stomach and also inflammation in her duodenum but none in her esophagus. PAST MEDICAL HISTORY: The patient has a history of hypertension and paroxysmal atrial fibrillation and history of congestive heart failure. She has diabetes mellitus and she has obstructive sleep ap dominik and uses a CPAP mask. ALLERGIES: SHE IS ALLERGIC TO DEMEROL. PAST SURGICAL HISTORY: Her operations include laparoscopic cholecystectomy. CURRENT MEDICATIONS: Include: 1. Aspartate insulin 2 units with meals. 2. Amiodarone 200 mg daily. 3. Lisinopril 20 mg daily. 4. Metformin 1000 mg with breakfast and dinner. 5. Pantoprazole 40 mg daily. 6. Apixaban Eliquis 5 mg twice a day. 7. Atorvastatin 20 mg daily. 8. Lasix 40 mg daily. 9. Spironolactone 25 mg daily. 10. Fluticasone propionate 1 spray each nostril twice a day. PHYSICAL EXAMINATION: GENERAL: Reveals a pleasant, alert, cooperative, obese Afro-[place] female. HEENT: The pupils are equal, round and react to light. There is no scleral icterus. The mouth has moist mucous membranes. NECK: Supple. CHEST: Clear to auscultation. HEART: Regular without gallop or murmur. ABDOMEN: Slightly tender in the epigastrium. The bowel sounds are present. The patient has no pal pable organs. EXTREMITIES: Patient has no edema, cyanosis or clubbing. INITIAL IMPRESSION: 1. Escherichia coli septicemia. 2. Urinary tract infection. 3. Dehydration. 4. Hypertension, congestive heart failure. 5. Paroxysmal atrial fibrillation. 6. Obstructive sleep apnea. 7. Diabetes mellitus. 8. Gallstones, status post cholecystectomy. 9. Obesity. RECOMMENDATIONS: I would change the patient to ceftriaxone 1 gram IV daily and obtain a urinary ult rasound. I instructed the patient the value of drinking at least 2 liters of fluid a day and monito ring the color of urine output to light yellow to clear to be sure that she was having adequate hydr ation to prevent urinary tract infection. Dictated By: Veena CHINCHILLA/NTS Conf#: [id number] DID#: [id number]
--- NOTE | 2016-08-17 17:09 | RADRPT ---
PROCEDURE: CT Abdomen and pelvis with contrast. CLINICAL INDICATION: vomitting TECHNIQUE: CT scan of the abdomen and pelvis with contrast was performed on a multidetector high-r esolution CT scan. The patient was scanned following the uncomplicated intravenous administration o f 99 ml of Visipaque 320 Coronal and sagittal reformatted images were obtained from the axial source images. Standard CT of the abdomen pelvis with contrast protocols were performed. The total exam CTDI equals 15.99 mGy and the total exam DLP equals 886.4 mGy-cm. One or more of the following dose reduction techniques were used: - Automated exposure control. - Adjustment of the mA and/or kV according to patient size. Use of iterative reconstruction technique. COMPARISON: Abdominal ultrasound 08/15/2016 CT scan abdomen pelvis 07/24/2016. FINDINGS: Again noted is mild hepatomegaly without focal hepatic lesions. Again noted are multiple gallstones but no gallbladder wall thickening and no evidence of biliary ductal dilation. The pancreatic duct is diffusely prominent but within normal limits in diameter and unchanged from the previous CT scan of the pelvis. There are no pancreatic masses. The spleen is normal in size configuration without f ocal lesions. The adrenal glands are unremarkable. The kidneys are normal in size configuration wi thout focal lesions. Negative for hydronephrosis bilaterally. There is a tiny hiatal hernia. The stomach is otherwise unremarkable. The small bowel is unremarkable. Mild diverticular changes of the descending colon but no CT scan evidence of diverticulitis. The appendix is unremarkable. Nega tive for intra-abdominal free air free fluid abscesses or lymphadenopathy.. Bladder is unremarkable . There is minimal dependent atelectasis at the lung bases otherwise unremarkable. There is mild degenerative changes of the lower thoracic and upper lumbar spine. The osseous structures are other jasso unremarkable. There is mild atherosclerotic vascular disease of the abdominal aorta but no ane urysm. IMPRESSION: 1. Correlation made to the previous CT scan of the pelvis 07/24/2016 and abdominal ultrasound 08/15. 2. Again noted is cholelithiasis without evidence of biliary ductal dilation. 3. Prominent but within normal limits pancreatic duct and no evidence of pancreatic masses. This f inding is unchanged from the previous CT scan of the pelvis. 4. Tiny hiatal hernia. 5. Diverticulosis of the descending colon but no CT scan evidence of diverticulitis. 6. Mild hepatomegaly without focal hepatic lesions. RPTAT:AAJJ Santa Masterson Physician Date Time Electronically viewed and signed by Santa Masterson Physician on 08/17/2016 17:09 BM/
--- NOTE | 2016-08-17 17:57 | PN ---
Date/Time of Note Date/Time of Note DATE: 08/17/16 TIME: 17:50 Assessment/Plan VTE Prophylaxis VTE Prophylaxis Intervention: SCD's Lines/Catheters IV Catheter Type (from Nrs): Peripheral IV Assessment/Plan Chief Complaint/Hosp Course ASSESSMENT AND PLAN - Acute cystitis. Continue ceftriaxone. Follow up on final culture. - Sepsis with fever, leukocytosis, and elevated lactic acid and E. coli bacteremia. Dr. Mena is following in infection disease consultation. - Gastritis per EGD. Continue Protonix. - Diabetes mellitus type 2. Hemoglobin A1c is 9.2. Continue Lantus not pre- meal NovoLog and NovoLog per mild algorithm sliding scale. - Congestive heart failure with ejection fraction of 35%. Continue patient on Lasix and Aldactone. - Paroxysmal atrial fibrillation. Continue Eliquis. - Hypertension. Continue lisinopril. - Acute kidney injury. Renal ultrasound is reviewed . Monitor BUN and creatinine. - Nausea and vomiting, continue Zofran p.r.n. for nausea and morphine p.r.n. for pain. Dr. Kumar is following in gastroenterology consultation. Status post CT scan of the abdomen and pelvis, follow-up on results. Continue Protonix for peptic ulcer disease prophylaxis. Further recommendations based on clinical course. Plan of care discussed with Dr. Benítez. Problems: Subjective 24 Hr Interval Summary Free Text/Dictation Patient denies any vomiting, status post EGD and CT scan, remains afebrile, blood sugar is well controlled. Exam/Review of Systems Vital Signs Vitals Vital Signs Date Time Temp Pulse Resp B/P Pulse Ox O2 Delivery O2 Flow Rate FiO2 08/17/16 10:25 98.2 68 16 128/74 99 Room Air Intake and Output 08/16/16 08/16/16 08/17/16 15:00 23:00 07:00 Intake Total 470 ml 1360 ml 1100 ml Output Total 100 ml Balance 470 ml 1260 ml 1100 ml Exam GENERAL: Well-developed, well-nourished female, currently awake, alert. HEENT: Head is atraumatic, normocephalic. PERRLA. NECK: Supple, no cervical lymphadenopathy, no thyromegaly. CHEST: Lungs clear bilaterally. There is no rhonchi, wheezes, rales noted. CARDIOVASCULAR: Normal sinus rhythm. No murmurs, gallops, clicks, rubs noted. GASTROINTESTINAL: Abdomen is protuberant, soft, nondistended, nontender. Bowel sounds present. EXTREMITIES: There is no edema, clubbing, cyanosis. SKIN: No rash, petechiae noted. NEUROLOGIC: Patient is awake, alert, and oriented x4. Results Result Diagram: 08/17/16 0515 08/17/16 0515 Results 24 hrs Laboratory Tests Test 08/16/16 21:00 08/17/16 05:15 08/17/16 07:34 08/17/16 09:24 Bedside Glucose 129 173 164 Anion Gap 18 H Basophils # 0.0 Basophils % 0.3 Blood Urea Nitrogen 24 H Calcium Level 8.9 Carbon Dioxide Level 27 Chloride Level 96 L Creatinine 1.26 H Eosinophils # 0.0 Eosinophils % 0.6 Glucose Level 166 # Hematocrit 29.2 L Hemoglobin 10.2 L Lymphocytes # 0.9 Lymphocytes % 15.7 Mean Corpuscular Hemoglobin 31.8 Mean Corpuscular Hemoglobin Concent 34.8 Mean Corpuscular Volume 91.2 Mean Platelet Volume 8.1 Monocytes # 0.8 Monocytes % 13.6 H Neutrophils # 3.9 Neutrophils % 69.8 Nucleated Red Blood Cells # 0.0 Nucleated Red Blood Cells % 0.0 Platelet Count 224 Potassium Level 4.5 Red Blood Count 3.20 L Red Cell Distribution Width 12.1 Sodium Level 136 White Blood Count 5.6 # Test 08/17/16 11:58 08/17/16 17:13 Bedside Glucose 164 120 Medications Medications Current Medications Ondansetron HCl (Zofran Inj) 4 mg Q6H PRN IV NAUSEA AND/OR VOMITING Last administered on 08/17/16 08:51; Admin Dose 4 MG; Start 08/15/16 at 18:30 Morphine Sulfate (morphine) 2 mg Q4H PRN IV SEVERE PAIN LEVEL 7-10 Last administered on 08/17/16 13:38; Admin Dose 2 MG; Start 08/15/16 at 18:30 Pantoprazole (Protonix Iv) 40 mg DAILY@06 IV Last administered on 08/17/16 06: 01; Admin Dose 40 MG; Start 08/16/16 at 06:00 Amiodarone HCl (Cordarone) 200 mg DAILY PO Last administered on 08/17/16 10:43 ; Admin Dose 200 MG; Start 08/16/16 at 09:00 Apixaban (Eliquis) 5 mg BID PO Last administered on 08/17/16 10:42; Admin Dose 5 MG; Start 08/15/16 at 21:00 Atorvastatin Calcium (Lipitor) 20 mg HS PO Last administered on 08/15/16 20:37 ; Admin Dose 20 MG; Start 08/15/16 at 21:00 Furosemide (Lasix) 40 mg BID PO Last administered on 08/17/16 10:44; Admin Dose 40 MG; Start 08/15/16 at 21:00 Insulin Glargine (Lantus) 26 unit QHS SC Last administered on 08/15/16 20:45; Admin Dose 26 UNIT; Start 08/15/16 at 21:00 Lisinopril (Zestril) 20 mg DAILY PO Last administered on 08/17/16 10:43; Admin Dose 20 MG; Start 08/16/16 at 09:00 Spironolactone (Aldactone) 25 mg BID PO Last administered on 08/17/16 10:43; Admin Dose 25 MG; Start 08/15/16 at 21:00 Fluticasone Propionate (Flonase 0.05% Nasal) 1 spray BID NASAL Last administered on 08/16/16 21:03; Admin Dose 1 SPRAY; Start 08/15/16 at 21:00 Diagnostic Test (Pha) (Accucheck) 1 ea 02 XX Last administered on 08/16/16 01: 44; Admin Dose 1 EA; Start 08/16/16 at 02:00 Miscellaneous Information 1 ea NOTE XX ; Start 08/15/16 at 19:00 Glucose (Glutose) 15 gm Q15M PRN PO DECREASED GLUCOSE; Start 08/15/16 at 19:00 Glucose (Glutose) 22.5 gm Q15M PRN PO DECREASED GLUCOSE; Start 08/15/16 at 19:00 Dextrose (D50w Syringe) 25 ml Q15M PRN IV DECREASED GLUCOSE; Start 08/15/16 at 19:00 Dextrose (D50w Syringe) 50 ml Q15M PRN IV DECREASED GLUCOSE; Start 08/15/16 at 19:00 Glucagon (Glucagen) 1 mg Q15M PRN IM DECREASED GLUCOSE; Start 08/15/16 at 19:00 Glucose (Glutose) 15 gm Q15M PRN BUCCAL DECREASED GLUCOSE; Start 08/15/16 at 19: 00 Guaifenesin/ Dextromethorphan (Robitussin Dm Liquid Cup) 10 ml Q4H PRN PO cough Last administered on 08/16/16 09:36; Admin Dose 10 ML; Start 08/16/16 at 02 :00 Acetaminophen (Tylenol Tab) 650 mg Q4H PRN PO PAIN AND OR ELEVATED TEMP Last administered on 08/16/16 18:23; Admin Dose 650 MG; Start 08/16/16 at 17:30 Bisacodyl 10 mg 10 mg DAILY PRN [place] CONSTIPATION; Start 08/16/16 at 17:30 Ceftriaxone Sodium (Rocephin) 50 ml @ 100 mls/hr Q24H IVPB Last administered on 08/17/16 16:17; Admin Dose 100 MLS/HR; Start 08/17/16 at 15:30; Stop 08/24/16 at 18:00 ANUSHA DIAZ Aug 17, 2016 17:57
[2016-08-17] MEDS: ATORVASTATIN 20 MG TAB PO SCH (21:30)
[2016-08-17] MEDS: INSULIN GLARGINE [LANtus] 3 ML PEN SC SCH (22:25)
[2016-08-18 00:29] VITALS: BP 140/69
[2016-08-18] MEDS: ACCUCHECK XX SCH (02:00)
[2016-08-18] MEDS: GUAIFENESIN/DM 5ML CUP PO PRN (03:31)
[2016-08-18] MEDS: PANTOPRAZOLE 40 MG INJ IV SCH (06:26)
[2016-08-18 06:43] LABS: POTASSIUM 3.9 mmol/L (3.5-5.1)
[2016-08-18 06:45] LABS: CREATININE 1.35 mg/dl (0.44-1.00)
[2016-08-18 06:46] LABS: CALCIUM 9.3 mg/dl (8.4-10.2)
[2016-08-18 07:16] LABS: BASOPHILS % 0.2 % (0.0-2.0); EOSINOPHILS # 0.1 10^3/ul (0.0-0.5); EOSINOPHILS % 0.9 % (0.0-7.0); HEMATOCRIT 29.9 % (37.0-47.0); HEMOGLOBIN 10.4 g/dl (12.0-16.0); LYMPHOCYTES # 1.2 10^3/ul (0.8-2.9); LYMPHOCYTES % 18.4 % (15.0-51.0); MEAN CORPUSCULAR HEMOGLOBIN 31.8 pg (29.0-33.0); MEAN CORPUSCULAR VOLUME 90.9 fl (82.0-101.0); MEAN PLATELET VOLUME 7.9 fl (7.4-10.4); MONOCYTE # 1.1 10^3/ul (0.3-0.9); MONOCYTES % 15.9 % (0.0-11.0); NEUTROPHIL # 4.3 10^3/ul (1.6-7.5); NEUTROPHILS % 64.6 % (39.0-77.0); PLATELET COUNT 260 10^3/UL (140-440); RED BLOOD COUNT 3.29 10^6/ul (4.20-5.40); RED CELL DISTRIBUTION WIDTH 12.4 % (11.5-14.5); UNCORRECTED WBC 6.7 10^3/ul (4.8-10.8); WHITE BLOOD COUNT 6.7 10^3/ul (4.8-10.8)
[2016-08-18 07:26] LABS: CONDITION 1; LH ANALYZER COMMENTS 1
[2016-08-18] MEDS: INSULIN ASPART [NOVOLOG] 3 ML PEN SC SCH ×7 (07:59→21:17)
[2016-08-18 08:01] VITALS: BP 173/79; RESP 24
--- NOTE | 2016-08-18 08:45 | PN ---
Date/Time of Note Date/Time of Note DATE: 08/18/16 TIME: 08:44 Assessment/Plan VTE Prophylaxis VTE Prophylaxis Intervention: other Lines/Catheters IV Catheter Type (from Nrs): Saline Lock Assessment/Plan Assessment/Plan - Acute cystitis. Continue ceftriaxone. Follow up on final culture. - Sepsis with fever, leukocytosis, and elevated lactic acid and E. coli bacteremia. - Dr. Mena is following in infection disease consultation. - Gastritis per EGD. Continue Protonix. - Diabetes mellitus type 2. Hemoglobin A1c is 9.2. Continue Lantus not pre- meal NovoLog and NovoLog per mild algorithm sliding scale. - Congestive heart failure with ejection fraction of 35%. Continue patient on Lasix and Aldactone. - Paroxysmal atrial fibrillation. Continue Eliquis. - Hypertension. Continue lisinopril. - Acute kidney injury. Renal ultrasound is reviewed . Monitor BUN and creatinine. - 1/2 NS at 60 cc/hr - am labs - Nausea and vomiting, -continue Zofran p.r.n. for nausea and morphine p.r.n. for pain. -Dr. Kumar is following in gastroenterology consultation. Status post CT scan of the abdomen and pelvis, follow-up on results. Continue Protonix for peptic ulcer disease prophylaxis. Further recommendations based on clinical course. Plan of care discussed with Dr. Benítez. Subjective 24 Hr Interval Summary Constitutional: febrile Eyes: no complaints ENT: no complaints Cardiovascular: no complaints Gastrointestinal: no complaints Genitourinary: dysuria Skin: no complaints Neurologic: no complaints Endocrine: no complaints Exam/Review of Systems Vital Signs Vitals Vital Signs Date Time Temp Pulse Resp B/P Pulse Ox O2 Delivery O2 Flow Rate FiO2 08/18/16 08:01 98.3 65 24 173/79 97 08/17/16 10:25 Room Air Intake and Output 08/17/16 08/17/16 08/18/16 15:00 23:00 07:00 Intake Total 200 ml 2530 ml 1600 ml Balance 200 ml 2530 ml 1600 ml Exam Constitutional: alert, oriented, well developed Eyes: nl conjunctiva ENMT: nl external ears & nose Neck: non-tender Respiratory: clear to auscultation Cardiovascular: nl pulses Gastrointestinal: non-tender, soft Results Result Diagram: 08/18/16 0527 08/18/16 0527 Results 24 hrs Laboratory Tests Test 08/17/16 09:24 08/17/16 11:58 08/17/16 17:13 08/17/16 21:27 Bedside Glucose 164 164 120 107 Test 08/18/16 05:27 08/18/16 07:49 Anion Gap 15 Basophils # 0.0 Basophils % 0.2 Blood Urea Nitrogen 20 Calcium Level 9.3 Carbon Dioxide Level 32 H Chloride Level 92 L Creatinine 1.35 H Eosinophils # 0.1 Eosinophils % 0.9 Glucose Level 166 Hematocrit 29.9 L Hemoglobin 10.4 L Lymphocytes # 1.2 Lymphocytes % 18.4 Mean Corpuscular Hemoglobin 31.8 Mean Corpuscular Hemoglobin Concent 35.0 Mean Corpuscular Volume 90.9 Mean Platelet Volume 7.9 Monocytes # 1.1 H Monocytes % 15.9 H Neutrophils # 4.3 Neutrophils % 64.6 Nucleated Red Blood Cells # 0.0 Nucleated Red Blood Cells % 0.0 Platelet Count 260 Potassium Level 3.9 Red Blood Count 3.29 L Red Cell Distribution Width 12.4 Sodium Level 135 White Blood Count 6.7 Bedside Glucose 152 Medications Medications Current Medications Ondansetron HCl (Zofran Inj) 4 mg Q6H PRN IV NAUSEA AND/OR VOMITING Last administered on 08/17/16 08:51; Admin Dose 4 MG; Start 08/15/16 at 18:30 Morphine Sulfate (morphine) 2 mg Q4H PRN IV SEVERE PAIN LEVEL 7-10 Last administered on 08/17/16 13:38; Admin Dose 2 MG; Start 08/15/16 at 18:30 Pantoprazole (Protonix Iv) 40 mg DAILY@06 IV Last administered on 08/18/16 06: 26; Admin Dose 40 MG; Start 08/16/16 at 06:00 Amiodarone HCl (Cordarone) 200 mg DAILY PO Last administered on 08/17/16 10:43 ; Admin Dose 200 MG; Start 08/16/16 at 09:00 Apixaban (Eliquis) 5 mg BID PO Last administered on 08/17/16 21:30; Admin Dose 5 MG; Start 08/15/16 at 21:00 Atorvastatin Calcium (Lipitor) 20 mg HS PO Last administered on 08/17/16 21:30 ; Admin Dose 20 MG; Start 08/15/16 at 21:00 Furosemide (Lasix) 40 mg BID PO Last administered on 08/17/16 21:34; Admin Dose 40 MG; Start 08/15/16 at 21:00 Spironolactone (Aldactone) 25 mg BID PO Last administered on 08/17/16 21:30; Admin Dose 25 MG; Start 08/15/16 at 21:00 Fluticasone Propionate (Flonase 0.05% Nasal) 1 spray BID NASAL Last administered on 08/17/16 21:31; Admin Dose 1 SPRAY; Start 08/15/16 at 21:00 Diagnostic Test (Pha) (Accucheck) 1 ea 02 XX Last administered on 08/16/16 01: 44; Admin Dose 1 EA; Start 08/16/16 at 02:00 Miscellaneous Information 1 ea NOTE XX ; Start 08/15/16 at 19:00 Glucose (Glutose) 15 gm Q15M PRN PO DECREASED GLUCOSE; Start 08/15/16 at 19:00 Glucose (Glutose) 22.5 gm Q15M PRN PO DECREASED GLUCOSE; Start 08/15/16 at 19:00 Dextrose (D50w Syringe) 25 ml Q15M PRN IV DECREASED GLUCOSE; Start 08/15/16 at 19:00 Dextrose (D50w Syringe) 50 ml Q15M PRN IV DECREASED GLUCOSE; Start 08/15/16 at 19:00 Glucagon (Glucagen) 1 mg Q15M PRN IM DECREASED GLUCOSE; Start 08/15/16 at 19:00 Glucose (Glutose) 15 gm Q15M PRN BUCCAL DECREASED GLUCOSE; Start 08/15/16 at 19: 00 Guaifenesin/ Dextromethorphan (Robitussin Dm Liquid Cup) 10 ml Q4H PRN PO cough Last administered on 08/18/16 03:31; Admin Dose 10 ML; Start 08/16/16 at 02 :00 Acetaminophen (Tylenol Tab) 650 mg Q4H PRN PO PAIN AND OR ELEVATED TEMP Last administered on 08/16/16 18:23; Admin Dose 650 MG; Start 08/16/16 at 17:30 Bisacodyl 10 mg 10 mg DAILY PRN [place] CONSTIPATION; Start 08/16/16 at 17:30 Ceftriaxone Sodium (Rocephin) 50 ml @ 100 mls/hr Q24H IVPB Last administered on 08/17/16 16:17; Admin Dose 100 MLS/HR; Start 08/17/16 at 15:30; Stop 08/24/16 at 18:00 Lisinopril (Zestril) 20 mg BID PO Last administered on 08/17/16 22:22; Admin Dose 20 MG; Start 08/17/16 at 22:30 Hydralazine HCl (Apresoline) 10 mg Q4H PRN IV ELEVATED SYSTOLIC BP; Start at 22:30 Insulin Glargine (Lantus) 14 unit HS SC Last administered on 08/17/16 22:25; Admin Dose 14 UNIT; Start 08/18/16 at 21:00 DOMENICA ROBERTS Aug 18, 2016 08:45
[2016-08-18] MEDS: FUROSEMIDE 40 MG TAB PO SCH ×2 (08:55→21:11)
[2016-08-18] MEDS: LISINOPRIL 20 MG TAB PO SCH ×2 (08:55→21:10)
[2016-08-18] MEDS: AMIODARONE 200 MG TAB PO SCH (08:55)
[2016-08-18] MEDS: FLUTICASONE 0.05% 16 GM NAS SPRAY NASAL SCH ×2 (08:56→21:10)
[2016-08-18] MEDS: SPIRONOLACTONE 25 MG TAB PO SCH ×2 (08:56→21:10)
[2016-08-18] MEDS: morphine 2 MG INJ IV PRN (08:56)
[2016-08-18] MEDS: APIXABAN 5 MG TABLET PO SCH ×2 (08:56→21:10)
[2016-08-18] MEDS: SOD CHLORIDE 0.45% 1,000 ML IV SCH (09:02)
[2016-08-18] MEDS ORDERED: SENNA/DOCUSATE NA (8.6MG/50MG) TAB PO SCH (15:30)
[2016-08-18] MEDS: CEFTRIAXONE 1 GM/50 ML (PMX) 50 ML IVPB SCH (15:35)
[2016-08-18] MEDS: SENNA TAB PO PRN (15:36)
[2016-08-18] MEDS: hydrALAzine 20 MG INJ IV PRN (15:53)
--- NOTE | 2016-08-18 16:48 | PN ---
DATE: 08/18/2016 SUBJECTIVE: Patient is alert, sitting up in bed, does not feel well, but overall in no distress. n o fevers. LABORATORY DATA: WBC 6.7, no shift. BUN 20, creatinine 1.35. ANTIMICROBIALS: Patient is on Rocephin. MICROBIOLOGY: Urine and blood culture growing E. coli. PHYSICAL EXAMINATION: GENERAL: Well-developed, middle-aged -[place] woman who is awake, in no distress. HEENT: Head atraumatic, normocephalic. Sclerae anicteric. Buccal mucosa pink. NECK: Supple. CHEST: Rise symmetrical. Breath sounds diminished to bases. HEART: S1, S2. ABDOMEN: Soft, bowel tones present. EXTREMITIES: No cyanosis. ASSESSMENT: 1. Escherichia coli urinary tract infection with bacteremia. 2. Hypertension. 3. Diabetes. 4. Paroxysmal atrial fibrillation. PLAN: Remains stable. We will continue her on current regimen. Patient is status post EGD that re vealed diffuse patchy gastritis and mild duodenitis. She is being followed by gastroenterology. We will repeat blood cultures. Dictated By: MCKAYLA HANNAH TESTER OPERATOR for ANDRES REDDY MD NI/NTS Conf#: [id number] DID#: [id number]
--- NOTE | 2016-08-18 17:52 | PN ---
Date/Time of Note Date/Time of Note DATE: 08/18/16 TIME: 17:50 Assessment/Plan VTE Prophylaxis VTE Prophylaxis Intervention: other (per pmd) Lines/Catheters IV Catheter Type (from Nrsg): Peripheral IV Assessment/Plan Chief Complaint/Hosp Course stable gastritis Problems: Assessment/Plan pl cont ppi Subjective 24 Hr Interval Summary Free Text/Dictation less abd pain and vomitting Exam/Review of Systems Vital Signs Vitals Vital Signs Date Time Temp Pulse Resp B/P Pulse Ox O2 Delivery O2 Flow Rate FiO2 08/18/16 08:01 98.3 65 24 173/79 97 08/17/16 10:25 Room Air Intake and Output 08/17/16 08/17/16 08/18/16 15:00 23:00 07:00 Intake Total 200 ml 2530 ml 1600 ml Balance 200 ml 2530 ml 1600 ml Results appears well exam un remarkable Result Diagram: 08/18/16 0527 08/18/16 0527 Results 24 hrs Laboratory Tests Test 08/17/16 21:27 08/18/16 05:27 08/18/16 07:49 08/18/16 11:34 Bedside Glucose 107 152 149 Anion Gap 15 Basophils # 0.0 Basophils % 0.2 Blood Urea Nitrogen 20 Calcium Level 9.3 Carbon Dioxide Level 32 H Chloride Level 92 L Creatinine 1.35 H Eosinophils # 0.1 Eosinophils % 0.9 Glucose Level 166 Hematocrit 29.9 L Hemoglobin 10.4 L Lymphocytes # 1.2 Lymphocytes % 18.4 Mean Corpuscular Hemoglobin 31.8 Mean Corpuscular Hemoglobin Concent 35.0 Mean Corpuscular Volume 90.9 Mean Platelet Volume 7.9 Monocytes # 1.1 H Monocytes % 15.9 H Neutrophils # 4.3 Neutrophils % 64.6 Nucleated Red Blood Cells # 0.0 Nucleated Red Blood Cells % 0.0 Platelet Count 260 Potassium Level 3.9 Red Blood Count 3.29 L Red Cell Distribution Width 12.4 Sodium Level 135 White Blood Count 6.7 Test 08/18/16 17:01 Bedside Glucose 126 Medications Medications Current Medications Ondansetron HCl (Zofran Inj) 4 mg Q6H PRN IV NAUSEA AND/OR VOMITING Last administered on 08/17/16t 08:51; Admin Dose 4 MG; Start 08/15/16 at 18:30 Morphine Sulfate (morphine) 2 mg Q4H PRN IV SEVERE PAIN LEVEL 7-10 Last administered on 08/18/16 08:56; Admin Dose 2 MG; Start 08/15/16 at 18:30 Pantoprazole (Protonix Iv) 40 mg DAILY@06 IV Last administered on 08/18/16 06: 26; Admin Dose 40 MG; Start 08/16/16 at 06:00 Amiodarone HCl (Cordarone) 200 mg DAILY PO Last administered on 08/18/16 08:55 ; Admin Dose 200 MG; Start 08/16/16 at 09:00 Apixaban (Eliquis) 5 mg BID PO Last administered on 08/18/16 08:56; Admin Dose 5 MG; Start 08/15/16 at 21:00 Atorvastatin Calcium (Lipitor) 20 mg HS PO Last administered on 08/17/16 21:30 ; Admin Dose 20 MG; Start 08/15/16 at 21:00 Furosemide (Lasix) 40 mg BID PO Last administered on 08/18/16 08:55; Admin Dose 40 MG; Start 08/15/16 at 21:00 Spironolactone (Aldactone) 25 mg BID PO Last administered on 08/18/16 08:56; Admin Dose 25 MG; Start 08/15/16 at 21:00 Fluticasone Propionate (Flonase 0.05% Nasal) 1 spray BID NASAL Last administered on 08/18/16 08:56; Admin Dose 1 SPRAY; Start 08/15/16 at 21:00 Diagnostic Test (Pha) (Accucheck) 1 ea 02 XX Last administered on 08/16/16 01: 44; Admin Dose 1 EA; Start 08/16/16 at 02:00 Miscellaneous Information 1 ea NOTE XX ; Start 08/15/16 at 19:00 Glucose (Glutose) 15 gm Q15M PRN PO DECREASED GLUCOSE; Start 08/15/16 at 19:00 Glucose (Glutose) 22.5 gm Q15M PRN PO DECREASED GLUCOSE; Start 08/15/16 at 19:00 Dextrose (D50w Syringe) 25 ml Q15M PRN IV DECREASED GLUCOSE; Start 08/15/16 at 19:00 Dextrose (D50w Syringe) 50 ml Q15M PRN IV DECREASED GLUCOSE; Start 08/15/16 at 19:00 Glucagon (Glucagen) 1 mg Q15M PRN IM DECREASED GLUCOSE; Start 08/15/16 at 19:00 Glucose (Glutose) 15 gm Q15M PRN BUCCAL DECREASED GLUCOSE; Start 08/15/16 at 19: 00 Guaifenesin/ Dextromethorphan (Robitussin Dm Liquid Cup) 10 ml Q4H PRN PO cough Last administered on 08/18/16 03:31; Admin Dose 10 ML; Start 08/16/16 at 02 :00 Acetaminophen (Tylenol Tab) 650 mg Q4H PRN PO PAIN AND OR ELEVATED TEMP Last administered on 08/16/16 18:23; Admin Dose 650 MG; Start 08/16/16 at 17:30 Bisacodyl 10 mg 10 mg DAILY PRN [place] CONSTIPATION; Start 08/16/16 at 17:30 Ceftriaxone Sodium (Rocephin) 50 ml @ 100 mls/hr Q24H IVPB Last administered on 08/18/16 15:35; Admin Dose 100 MLS/HR; Start 08/17/16 at 15:30; Stop 08/24/16 at 18:00 Lisinopril (Zestril) 20 mg BID PO Last administered on 08/18/16 08:55; Admin Dose 20 MG; Start 08/17/16 at 22:30 Hydralazine HCl (Apresoline) 10 mg Q4H PRN IV ELEVATED SYSTOLIC BP Last administered on 08/18/16 15:53; Admin Dose 10 MG; Start 08/17/16 at 22:30 Insulin Glargine 14 unit 14 unit HS SC Last administered on 08/17/16 22:25; Admin Dose 14 UNIT; Start 08/18/16 at 21:00 Sodium Chloride (1/2 NS) 1,000 ml @ 60 mls/hr [id number] IV Last administered on 08/18/16 09:02; Admin Dose 60 MLS/HR; Start 08/18/16 at 09:00 Senna (Senokot) 2 tab BID PRN PO CONSTIPATION Last administered on 08/18/16 15: 36; Admin Dose 2 TAB; Start 08/18/16 at 16:00 YARED CANTRELL MD Aug 18, 2016 17:52
[2016-08-18 20:03] VITALS: BP 157/75; RESP 20
[2016-08-18] MEDS: ATORVASTATIN 20 MG TAB PO SCH (21:10)
[2016-08-18] MEDS: INSULIN GLARGINE [LANtus] 3 ML PEN SC SCH (21:17)
[2016-08-19] MEDS: SOD CHLORIDE 0.45% 1,000 ML IV SCH ×4 (01:40→19:37)
[2016-08-19] MEDS: ACCUCHECK XX SCH (02:00)
[2016-08-19] MEDS: PANTOPRAZOLE 40 MG INJ IV SCH (05:47)
[2016-08-19 06:18] LABS: ADD SCAN DIFF NO
[2016-08-19 07:00] LABS: POTASSIUM 3.6 mmol/L (3.5-5.1)
[2016-08-19 07:03] LABS: CALCIUM 9.2 mg/dl (8.4-10.2); CREATININE 1.25 mg/dl (0.44-1.00)
[2016-08-19 07:17] VITALS: BP 153/74; RESP 18
[2016-08-19] MEDS: SPIRONOLACTONE 25 MG TAB PO SCH ×2 (08:18→21:30)
[2016-08-19] MEDS: FLUTICASONE 0.05% 16 GM NAS SPRAY NASAL SCH ×2 (08:18→21:31)
[2016-08-19] MEDS: LISINOPRIL 20 MG TAB PO SCH ×2 (08:19→21:31)
[2016-08-19] MEDS: APIXABAN 5 MG TABLET PO SCH ×2 (08:19→21:30)
[2016-08-19] MEDS: AMIODARONE 200 MG TAB PO SCH (08:19)
[2016-08-19] MEDS: FUROSEMIDE 40 MG TAB PO SCH ×2 (08:20→21:31)
[2016-08-19] MEDS: INSULIN ASPART [NOVOLOG] 3 ML PEN SC SCH ×7 (08:24→21:00)
--- NOTE | 2016-08-19 10:02 | PQ ---
Date/Time of Note Date/Time of Note DATE: 08/19/16 TIME: 09:58 Physician Query Documentation Clarification Dear Ms. Edith Roberts NP, A review of the medical record found a need for documentation clarification. progress note -"Congestive heart failure with ejection fraction of 35%. Continue patient on Lasix " Please clarify( if known ) the acuity of CHF. To facilitate accurate and complete coding, please betsy ( x ) the suspected diagnosis that apply: ( ) Acute Systolic (Reduced EF) Heart Failure ( ICD10 I50.21 ) ( ) Acute Diastolic (Preserved EF) Heart Failure ( ICD10 I50.31 ) ( )Acute Combined Systolic & Diastolic Heart Failure ( ICD10 I50.41 ) ( x ) Chronic Systolic (Reduced EF) Heart Failure ( ICD10 I50.22 ) ( ) Chronic Diastolic (Preserved EF) Heart Failure ( ICD10 I50.32 ) ( ) Chronic Combined Systolic & Diastolic Heart Failure ( ICD10 I50.42 ) ( ) Acute on Chronic Systolic (Reduced EF) Heart Failure ( ICD10 I50.23 ) ( )Acute on Chronic Diastolic (Preserved EF) Heart Failure ( ICD10 I50.33 ) ( ) Acute on Chronic Combined Systolic & Diastolic Heart Failure ( ICD10 I50.43 ) Please provide your response by clicking edit document, making your choice ( x ), click ok/save and finally click sign. You may also document your response on your progress notes. Thank you for your time. Jewel Ba RN, BSN, CCS, CCDS [employer] [facility] [employer], [employer] and [employer]oding Services [phone] Room # 1525 - [address]~ [address] JEWEL BA Aug 19, 2016 10:01 DOMENICA ROBERTS Aug 25, 2016 12:58
[2016-08-19 10:20] LABS: BASOPHILS % 0.5 % (0.0-2.0); EOSINOPHILS # 0.1 10^3/ul (0.0-0.5); EOSINOPHILS % 1.5 % (0.0-7.0); HEMATOCRIT 30.1 % (37.0-47.0); LYMPHOCYTES # 1.8 10^3/ul (0.8-2.9); LYMPHOCYTES % 29.3 % (15.0-51.0); MEAN CORPUSCULAR HGB CONC 33.2 g/dl (32.0-37.0); MEAN CORPUSCULAR VOLUME 93.2 fl (82.0-101.0); MEAN PLATELET VOLUME 9.9 fl (7.4-10.4); MONOCYTE # 0.8 10^3/ul (0.3-0.9); MONOCYTES % 13.6 % (0.0-11.0); NEUTROPHIL # 3.3 10^3/ul (1.6-7.5); NEUTROPHILS % 53.9 % (39.0-77.0); PLATELET COUNT 273 10^3/UL (140-415); RED BLOOD COUNT 3.23 10^6/ul (4.20-5.40); RED CELL DISTRIBUTION WIDTH 12.1 % (11.5-14.5); WHITE BLOOD COUNT 6.1 10^3/ul (4.8-10.8)
--- NOTE | 2016-08-19 10:55 | PN ---
Date/Time of Note Date/Time of Note DATE: 08/19/16 TIME: 10:51 Assessment/Plan VTE Prophylaxis VTE Prophylaxis Intervention: SCD's Lines/Catheters IV [facility] Peripheral IV Urinary Cath still in place: No Assessment/Plan Chief Complaint/Hosp Course ASSESSMENT AND PLAN - Acute cystitis. Continue antibiotics per ID. - Sepsis with fever, leukocytosis, and elevated lactic acid and E. coli bacteremia. Dr. Mena is following in infection disease consultation. - Gastritis per EGD. Continue Protonix. - Diabetes mellitus type 2. Hemoglobin A1c is 9.2. Continue Lantus not pre- meal NovoLog and NovoLog per mild algorithm sliding scale. - Congestive heart failure with ejection fraction of 35%. Continue patient on Lasix and Aldactone. - Paroxysmal atrial fibrillation. Continue Eliquis. - Hypertension. Continue lisinopril. - Acute kidney injury. Renal ultrasound is reviewed . Monitor BUN and creatinine. - Nausea and vomiting, continue Zofran p.r.n. for nausea and morphine p.r.n. for pain. Dr. Kumar is following in gastroenterology consultation. Continue Protonix for peptic ulcer disease prophylaxis. Further recommendations based on clinical course. Plan of care discussed with Dr. Benítez. Problems: Subjective 24 Hr Interval Summary Free Text/Dictation Patient tolerates liquid diet well, denies nausea vomiting, denies fever, patient stated that she feels better however still complains of generalized weakness. Exam/Review of Systems Vital Signs Vitals Vital Signs Date Time Temp Pulse Resp B/P Pulse Ox O2 Delivery O2 Flow Rate FiO2 08/19/16 07:17 97.9 67 18 153/74 99 08/17/16 10:25 Room Air Intake and Output 08/18/16 08/18/16 08/19/16 15:00 23:00 07:00 Intake Total 1890 ml 2480 ml Balance 1890 ml 2480 ml Exam GENERAL: Well-developed, well-nourished female, currently awake, alert. HEENT: Head is atraumatic, normocephalic. PERRLA. NECK: Supple, no cervical lymphadenopathy, no thyromegaly. CHEST: Lungs clear bilaterally. There is no rhonchi, wheezes, rales noted. CARDIOVASCULAR: Normal sinus rhythm. No murmurs, gallops, clicks, rubs noted. GASTROINTESTINAL: Abdomen is protuberant, soft, nondistended, nontender. Bowel sounds present. EXTREMITIES: There is no edema, clubbing, cyanosis. SKIN: No rash, petechiae noted. NEUROLOGIC: Patient is awake, alert, and oriented x4. Results Result Diagram: 08/19/16 0520 08/19/16 0520 Results 24 hrs Laboratory Tests Test 08/18/16 11:34 08/18/16 17:01 08/18/16 21:07 08/19/16 02:03 Bedside Glucose 149 126 182 150 Test 08/19/16 05:20 08/19/16 08:12 Anion Gap 16 Basophils # 0.0 Basophils % 0.5 Blood Urea Nitrogen 19 Calcium Level 9.2 Carbon Dioxide Level 32 H Chloride Level 94 L Creatinine 1.25 H Eosinophils # 0.1 Eosinophils % 1.5 Glucose Level 153 Hematocrit 30.1 L Hemoglobin 10.0 L Lymphocytes # 1.8 Lymphocytes % 29.3 Mean Corpuscular Hemoglobin 31.0 Mean Corpuscular Hemoglobin Concent 33.2 Mean Corpuscular Volume 93.2 Mean Platelet Volume 9.9 # Monocytes # 0.8 Monocytes % 13.6 H Neutrophils # 3.3 Neutrophils % 53.9 Nucleated Red Blood Cells # 0.0 Nucleated Red Blood Cells % 0.0 Platelet Count 273 Potassium Level 3.6 Red Blood Count 3.23 L Red Cell Distribution Width 12.1 Sodium Level 138 White Blood Count 6.1 Bedside Glucose 275 H Medications Medications Current Medications Ondansetron HCl (Zofran Inj) 4 mg Q6H PRN IV NAUSEA AND/OR VOMITING Last administered on 08/17/16 08:51; Admin Dose 4 MG; Start 08/15/16 at 18:30 Morphine Sulfate (morphine) 2 mg Q4H PRN IV SEVERE PAIN LEVEL 7-10 Last administered on 08/18/16 08:56; Admin Dose 2 MG; Start 08/15/16 at 18:30 Pantoprazole (Protonix Iv) 40 mg DAILY@06 IV Last administered on 08/19/16 05: 47; Admin Dose 40 MG; Start 08/16/16 at 06:00 Amiodarone HCl (Cordarone) 200 mg DAILY PO Last administered on 08/19/16 08:19 ; Admin Dose 200 MG; Start 08/16/16 at 09:00 Apixaban (Eliquis) 5 mg BID PO Last administered on 08/19/16 08:19; Admin Dose 5 MG; Start 08/15/16 at 21:00 Atorvastatin Calcium (Lipitor) 20 mg HS PO Last administered on 08/18/16 21:10 ; Admin Dose 20 MG; Start 08/15/16 at 21:00 Furosemide (Lasix) 40 mg BID PO Last administered on 08/19/16 08:20; Admin Dose 40 MG; Start 08/15/16 at 21:00 Spironolactone (Aldactone) 25 mg BID PO Last administered on 08/19/16 08:18; Admin Dose 25 MG; Start 08/15/16 at 21:00 Fluticasone Propionate (Flonase 0.05% Nasal) 1 spray BID NASAL Last administered on 08/19/16 08:18; Admin Dose 1 SPRAY; Start 08/15/16 at 21:00 Diagnostic Test (Pha) (Accucheck) 1 ea 02 XX Last administered on 08/16/16 01: 44; Admin Dose 1 EA; Start 08/16/16 at 02:00 Miscellaneous Information 1 ea NOTE XX ; Start 08/15/16 at 19:00 Glucose (Glutose) 15 gm Q15M PRN PO DECREASED GLUCOSE; Start 08/15/16 at 19:00 Glucose (Glutose) 22.5 gm Q15M PRN PO DECREASED GLUCOSE; Start 08/15/16 at 19:00 Dextrose (D50w Syringe) 25 ml Q15M PRN IV DECREASED GLUCOSE; Start 08/15/16 at 19:00 Dextrose (D50w Syringe) 50 ml Q15M PRN IV DECREASED GLUCOSE; Start 08/15/16 at 19:00 Glucagon (Glucagen) 1 mg Q15M PRN IM DECREASED GLUCOSE; Start 08/15/16 at 19:00 Glucose (Glutose) 15 gm Q15M PRN BUCCAL DECREASED GLUCOSE; Start 08/15/16 at 19: 00 Guaifenesin/ Dextromethorphan (Robitussin Dm Liquid Cup) 10 ml Q4H PRN PO cough Last administered on 08/18/16 03:31; Admin Dose 10 ML; Start 08/16/16 at 02 :00 Acetaminophen (Tylenol Tab) 650 mg Q4H PRN PO PAIN AND OR ELEVATED TEMP Last administered on 08/16/16 18:23; Admin Dose 650 MG; Start 08/16/16 at 17:30 Bisacodyl 10 mg 10 mg DAILY PRN [place] CONSTIPATION; Start 08/16/16 at 17:30 Ceftriaxone Sodium (Rocephin) 50 ml @ 100 mls/hr Q24H IVPB Last administered on 08/18/16 15:35; Admin Dose 100 MLS/HR; Start 08/17/16 at 15:30; Stop 08/24/16 at 18:00 Lisinopril (Zestril) 20 mg BID PO Last administered on 08/19/16 08:19; Admin Dose 20 MG; Start 08/17/16 at 22:30 Hydralazine HCl (Apresoline) 10 mg Q4H PRN IV ELEVATED SYSTOLIC BP Last administered on 08/18/16 15:53; Admin Dose 10 MG; Start 08/17/16 at 22:30 Insulin Glargine 14 unit 14 unit HS SC Last administered on 08/18/16 21:17; Admin Dose 14 UNIT; Start 08/18/16 at 21:00 Sodium Chloride (1/2 NS) 1,000 ml @ 60 mls/hr [id number] IV Last administered on 08/19/16 05:47; Admin Dose 60 MLS/HR; Start 08/18/16 at 09:00 Senna (Senokot) 2 tab BID PRN PO CONSTIPATION Last administered on 08/18/16 15: 36; Admin Dose 2 TAB; Start 08/18/16 at 16:00 ANUSHA DIAZ Aug 19, 2016 10:54
--- NOTE | 2016-08-19 11:56 | PN ---
DATE: CHIEF COMPLAINT: At this time no abdominal pain, no nausea, no vomiting. She was admitted with abdo javad pain and vomiting. Endoscopy showed gastritis and esophagitis. At this time gastric biopsy f or H. pylori is pending. She is on proton pump inhibitor therapy. Physical examination unremarkable CLINICAL IMPRESSION: 1. Gastritis. 2. Esophagitis. PLAN: Continue proton pump inhibitor therapy. Recommend a regular diet and will follow the patient. Dictated By: YARED WHITAKER/ENOC Conf#: [id number] DID#: [id number]
--- NOTE | 2016-08-19 12:35 | PN ---
DATE: 08/19/2016 SUBJECTIVE: Patient is alert, feels better. Looks comfortable. She is afebrile. OBJECTIVE: VITAL SIGNS: Stable. ANTIMICROBIALS: Patient remains on Rocephin. MICROBIOLOGY: Repeat blood cultures pending. PHYSICAL EXAMINATION: GENERAL: Well-developed, middle-aged -[place] woman who is alert, in no distress. HEENT: Head atraumatic, normocephalic. Sclerae anicteric. Buccal mucosa pink. NECK: Supple. CHEST: Rise symmetrical. Breath sounds clear. HEART: S1, S2. ABDOMEN: Soft. Bowel tones present. EXTREMITIES: Without cyanosis. ASSESSMENT: 1. Systemic inflammatory response syndrome secondary to #2. 2. Escherichia coli urinary tract infection with bacteremia. 3. Acute renal failure, possibly on chronic kidney disease. 4. Diabetes. 5. Hypertension. PLAN: The patient remains stable, overall feeling better. She is covered with appropriate antimicr obials, pending repeat blood cultures. Dictated By: MCKAYLA HANNAH HAND BULLDOZER for ANDRES TEJEDA/ENOC Conf#: [id number] DID#: [id number]
[2016-08-19] MEDS: CEFTRIAXONE 1 GM/50 ML (PMX) 50 ML IVPB SCH (16:28)
[2016-08-19] MEDS: ACETAMINOPHEN 325 MG TAB PO PRN (16:28)
[2016-08-19 16:32] VITALS: BP 185/86; PULSE 68; RESP 18
[2016-08-19] MEDS: hydrALAzine 20 MG INJ IV PRN (17:21)
[2016-08-19 17:32] VITALS: BP 138/67; PULSE 68; RESP 17
[2016-08-19 20:04] VITALS: BP 139/70; RESP 16
[2016-08-19] MEDS: ATORVASTATIN 20 MG TAB PO SCH (21:30)
[2016-08-19] MEDS: INSULIN GLARGINE [LANtus] 3 ML PEN SC SCH (21:36)
[2016-08-20] MEDS: ACCUCHECK XX SCH (02:00)
[2016-08-20] MEDS: PANTOPRAZOLE (EC) 40 MG TAB PO SCH (05:40)
[2016-08-20 06:08] LABS: ADD SCAN DIFF NO; BASOPHILS % 0.6 % (0.0-2.0); EOSINOPHILS # 0.1 10^3/ul (0.0-0.5); EOSINOPHILS % 1.6 % (0.0-7.0); HEMATOCRIT 33.3 % (37.0-47.0); HEMOGLOBIN 10.9 g/dl (12.0-16.0); LYMPHOCYTES # 2.2 10^3/ul (0.8-2.9); LYMPHOCYTES % 32.6 % (15.0-51.0); MEAN CORPUSCULAR HEMOGLOBIN 30.8 pg (29.0-33.0); MEAN CORPUSCULAR HGB CONC 32.7 g/dl (32.0-37.0); MEAN CORPUSCULAR VOLUME 94.1 fl (82.0-101.0); MEAN PLATELET VOLUME 9.6 fl (7.4-10.4); MONOCYTE # 0.6 10^3/ul (0.3-0.9); MONOCYTES % 8.5 % (0.0-11.0); NEUTROPHIL # 3.7 10^3/ul (1.6-7.5); NEUTROPHILS % 55.1 % (39.0-77.0); PLATELET COUNT 332 10^3/UL (140-415); RED BLOOD COUNT 3.54 10^6/ul (4.20-5.40); RED CELL DISTRIBUTION WIDTH 12.1 % (11.5-14.5); WHITE BLOOD COUNT 6.8 10^3/ul (4.8-10.8)
[2016-08-20 06:37] LABS: POTASSIUM 3.7 mmol/L (3.5-5.1)
[2016-08-20 06:40] LABS: CREATININE 1.41 mg/dl (0.44-1.00)
[2016-08-20 06:41] LABS: CALCIUM 9.3 mg/dl (8.4-10.2)
[2016-08-20 07:38] VITALS: BP 162/75; RESP 18
[2016-08-20] MEDS: FLUTICASONE 0.05% 16 GM NAS SPRAY NASAL SCH ×2 (08:04→21:02)
[2016-08-20] MEDS: SPIRONOLACTONE 25 MG TAB PO SCH ×2 (08:04→21:02)
[2016-08-20] MEDS: APIXABAN 5 MG TABLET PO SCH ×2 (08:04→21:01)
[2016-08-20] MEDS: LISINOPRIL 20 MG TAB PO SCH ×2 (08:05→21:01)
[2016-08-20] MEDS: FUROSEMIDE 40 MG TAB PO SCH ×2 (08:05→21:02)
[2016-08-20] MEDS: AMIODARONE 200 MG TAB PO SCH (08:05)
[2016-08-20] MEDS: INSULIN ASPART [NOVOLOG] 3 ML PEN SC SCH ×7 (08:51→20:20)
--- NOTE | 2016-08-20 10:35 | CONS ---
Date/Time of Note Date/Time of Note DATE: 08/20/16 TIME: 10:34 Assessment/Plan Assessment/Plan Chief Complaint/Hosp Course ID PROGRESS NOTE TOTAL ABX DAY # total days 24H INTERVAL SUMMARY * Awake, alert, sitting up edge of bed, reports continued headache, no visual changes, no fevers * ?Memory deficit ? She tells me she didn't know she had a UTI although she noticed foul odor with prior urination is "gone" * BCx(+) & Urine GNR (+)E.Coli * BLOOD CULTURE Final BCULT GRAM BOTTLE 1 Gram negative rods . seen on gram stain of the broth BCULT GRAM BOTTLE 2 Gram negative rods . seen on gram stain of the broth Organism 1 ESCHERICHIA COLI CRITICAL TEST VALUE BTL 1 . PHONED TO & READ BACK BY Veena SCHUMACHER @ [id number] BY WILLI[facility]. CRITICAL TEST VALUE BTL 2 . PHONED TO & READ BACK BY LADY FLORES @9119 08/16/16 BY HN. E COLI [facility] RX --------- --- AMPICILLIN >=32 R CEFAZOLIN I CEFOTAXIME S CIPROFLOXACIN 0.5 S GENTAMICIN <=1 S LEVOFLOXACIN 1 S TOBRAMYCIN <=1 S TRIMETHOPRIM/SULFAMETHOXAZOLE >=320 R * PHYSICAL EXAMINATION: GENERAL: VSS, NAD HEENT: Unremarkable NECK: Trach midline CHEST: Rise symmetrical - without dyspnea on observation HEART: RRR ABDOMEN: Soft, EXTREMITIES: Warm, ID ASSESSMENT: 56 yo F w/PMHx 1. GNR E.Coli septicemia 2/2 GNR E.Coli UTI 2. Complicated GNR E.Coli UTI/Early Pyelonephritis without hydronephrosis 3. Cholelithiasis without evidence of biliary ductal dilation. 4. HTN 5. Headache - possibly related to HTN B/P radings >160-180 systolic range (-)MRSA Nares INVASIVES: *PIV ABX ALLERGIES: None to ABX CURRENT ABX: Ceftriaxone ID RECOMMENDATIONS: TOTAL ABX DAY # total days ABX for GNR E.Coli septicemia. * May DC Home with HH IV ABX until last day 08/29/16; alternative is treat with IV x 7 days, with "PO Switch" to Levaquin 500mg PO daily x 7 days . Problems: Consultation Date/Type/Reason Admit Date/Time Aug 17, 2016 at 11:23 Initial Consult Date Exam/Review of Systems Vital Signs Vitals Vital Signs Date Time Temp Pulse Resp B/P Pulse Ox O2 Delivery O2 Flow Rate FiO2 08/20/16 07:38 97.6 72 18 162/75 99 08/19/16 16:32 Room Air Intake and Output 08/19/16 08/19/16 08/20/16 15:00 23:00 07:00 Intake Total 120 ml 3190 ml 200 ml Balance 120 ml 3190 ml 200 ml Results Result Diagram: 08/20/16 0501 08/20/16 0501 Results 24 hrs Laboratory Tests Test 08/19/16 11:57 08/19/16 17:19 08/19/16 21:29 08/20/16 05:01 Bedside Glucose 120 176 169 Anion Gap 17 H Basophils # 0.0 Basophils % 0.6 Blood Urea Nitrogen 22 H Calcium Level 9.3 Carbon Dioxide Level 33 H Chloride Level 94 L Creatinine 1.41 H Eosinophils # 0.1 Eosinophils % 1.6 Glucose Level 263 #H Hematocrit 33.3 L Hemoglobin 10.9 L Lymphocytes # 2.2 Lymphocytes % 32.6 Mean Corpuscular Hemoglobin 30.8 Mean Corpuscular Hemoglobin Concent 32.7 Mean Corpuscular Volume 94.1 Mean Platelet Volume 9.6 Monocytes # 0.6 Monocytes % 8.5 Neutrophils # 3.7 Neutrophils % 55.1 Nucleated Red Blood Cells # 0.0 Nucleated Red Blood Cells % 0.0 Platelet Count 332 # Potassium Level 3.7 Red Blood Count 3.54 L Red Cell Distribution Width 12.1 Sodium Level 140 White Blood Count 6.8 Test 08/20/16 07:51 Bedside Glucose 245 H Medications Medications Current Medications Ondansetron HCl (Zofran Inj) 4 mg Q6H PRN IV NAUSEA AND/OR VOMITING Last administered on 08/17/16 08:51; Admin Dose 4 MG; Start 08/15/16 at 18:30 Morphine Sulfate (morphine) 2 mg Q4H PRN IV SEVERE PAIN LEVEL 7-10 Last administered on 08/18/16 08:56; Admin Dose 2 MG; Start 08/15/16 at 18:30 Amiodarone HCl (Cordarone) 200 mg DAILY PO Last administered on 08/20/16 08:05 ; Admin Dose 200 MG; Start 08/16/16 at 09:00 Apixaban (Eliquis) 5 mg BID PO Last administered on 08/20/16 08:04; Admin Dose 5 MG; Start 08/15/16 at 21:00 Atorvastatin Calcium (Lipitor) 20 mg HS PO Last administered on 08/19/16 21:30 ; Admin Dose 20 MG; Start 08/15/16 at 21:00 Furosemide (Lasix) 40 mg BID PO Last administered on 08/20/16 08:05; Admin Dose 40 MG; Start 08/15/16 at 21:00 Spironolactone (Aldactone) 25 mg BID PO Last administered on 08/20/16 08:04; Admin Dose 25 MG; Start 08/15/16 at 21:00 Fluticasone Propionate (Flonase 0.05% Nasal) 1 spray BID NASAL Last administered on 08/20/16 08:04; Admin Dose 1 SPRAY; Start 08/15/16 at 21:00 Diagnostic Test (Pha) (Accucheck) 1 ea 02 XX Last administered on 08/16/16 01: 44; Admin Dose 1 EA; Start 08/16/16 at 02:00 Miscellaneous Information 1 ea NOTE XX ; Start 08/15/16 at 19:00 Glucose (Glutose) 15 gm Q15M PRN PO DECREASED GLUCOSE; Start 08/15/16 at 19:00 Glucose (Glutose) 22.5 gm Q15M PRN PO DECREASED GLUCOSE; Start 08/15/16 at 19:00 Dextrose (D50w Syringe) 25 ml Q15M PRN IV DECREASED GLUCOSE; Start 08/15/16 at 19:00 Dextrose (D50w Syringe) 50 ml Q15M PRN IV DECREASED GLUCOSE; Start 08/15/16 at 19:00 Glucagon (Glucagen) 1 mg Q15M PRN IM DECREASED GLUCOSE; Start 08/15/16 at 19:00 Glucose (Glutose) 15 gm Q15M PRN BUCCAL DECREASED GLUCOSE; Start 08/15/16 at 19: 00 Guaifenesin/ Dextromethorphan (Robitussin Dm Liquid Cup) 10 ml Q4H PRN PO cough Last administered on 08/18/16 03:31; Admin Dose 10 ML; Start 08/16/16 at 02 :00 Acetaminophen (Tylenol Tab) 650 mg Q4H PRN PO PAIN AND OR ELEVATED TEMP Last administered on 08/19/16 16:28; Admin Dose 650 MG; Start 08/16/16 at 17:30 Bisacodyl 10 mg 10 mg DAILY PRN [place] CONSTIPATION; Start 08/16/16 at 17:30 Ceftriaxone Sodium (Rocephin) 50 ml @ 100 mls/hr Q24H IVPB Last administered on 08/19/16 16:28; Admin Dose 100 MLS/HR; Start 08/17/16 at 15:30; Stop at 18:00 Lisinopril (Zestril) 20 mg BID PO Last administered on 08/20/16 08:05; Admin Dose 20 MG; Start 08/17/16 at 22:30 Hydralazine HCl 10 mg 10 mg Q4H PRN IV ELEVATED SYSTOLIC BP Last administered on 08/19/16 17:21; Admin Dose 10 MG; Start 08/17/16 at 22:30 Sodium Chloride (1/2 NS) 1,000 ml @ 60 mls/hr [id number] IV Last administered on 08/19/16 19:37; Admin Dose 60 MLS/HR; Start 08/18/16 at 09:00 Senna (Senokot) 2 tab BID PRN PO CONSTIPATION Last administered on 08/18/16 15: 36; Admin Dose 2 TAB; Start 08/18/16 at 16:00 Pantoprazole (Protonix Tab) 40 mg DAILY@06 PO Last administered on 08/20/16 05 :40; Admin Dose 40 MG; Start 08/20/16 at 06:00 Insulin Glargine (Lantus) 24 unit HS SC ; Start 08/20/16 at 21:00 Docusate Sodium (Colace) 100 mg BID PO ; Start 08/20/16 at 10:30 Magnesium Hydroxide (Milk Of Mag) 30 ml DAILY PRN PO CONSTIPATION; Start at 10:00 ROGER AGOSTO NP Aug 20, 2016 10:35
[2016-08-20] MEDS: MAGNESIUM HYDROXIDE 30ML CUP PO PRN (10:39)
[2016-08-20] MEDS: DOCUSATE SODIUM 100 MG CAP PO SCH ×2 (10:39→21:01)
[2016-08-20] MEDS: SOD CHLORIDE 0.45% 1,000 ML IV SCH (10:39)
[2016-08-20] MEDS: SENNA TAB PO PRN (15:06)
[2016-08-20] MEDS: CEFTRIAXONE 1 GM/50 ML (PMX) 50 ML IVPB SCH (15:06)
--- NOTE | 2016-08-20 15:36 | CONS ---
DATE OF ADMISSION: 08/17/2016 DATE OF CONSULTATION: 08/20/2016 REASON FOR CONSULTATION: Acute kidney injury. REFERRING PHYSICIAN: Michael Benítez MD HISTORY OF PRESENT ILLNESS: This is a 56-year-old female who has a past medical history of hypertension, CHF, diabetes mellitus, history of diabetes mellitus, hypertension who presented with a complaint of systemic inflammatory response syndrome secondary to E. coli urinary tract infection and had bacteremia with 3/3 blood culture growing E. coli. The patient also had acute kidney injury on chronic kidney disease which was thought secondary to sepsis. The patient had a creatinine of 1.7, BUN of 34, sodium 133 on admission, so renal has been consulted for acute kidney injury on chronic kidney disease. REVIEW OF SYSTEMS: As per HPI. PAST MEDICAL HISTORY: Notable for hypertension, CHF, diabetes mellitus. PAST SURGICAL HISTORY: History of hysterectomy, history of previous refusal of cholecystectomy. SOCIAL HISTORY: No smoking, alcohol or recreational drug use. FAMILY HISTORY: Not available. PHYSICAL EXAMINATION: VITAL SIGNS: Temperature 97.6, heart rate 72, respiration 18, blood pressure 162/75, saturation 99% on room air. GENERAL: Awake, alert, in no distress. HEENT: Normal. Oropharynx clear. NECK: Supple, no JVD, no lymphadenopathy. LUNGS: Clear to auscultation. No crackles, no wheezes. HEART: S1, S2, with regular rhythm, no murmur. ABDOMEN: Soft, nontender, nondistended. Bowel sounds are present. EXTREMITIES: No clubbing, cyanosis, or edema. NEUROLOGICAL: Nonfocal, intact. PSYCHIATRIC: Appropriate affect and mood. LABORATORY DATA AND DIAGNOSTIC IMAGIN. A BUN 34, creatinine 1.77 on admission. 2. Sodium 140, potassium 3.7, chloride 94, bicarbonate 33, BUN 22, creatinine is 1.4, glucose 263, calcium 9.3. 3. WBC 6.8, hemoglobin 10.9, platelet count is 332,000. PT 13.7, PTT 32, INR 1.05. Urinalysis is dirty with urine culture growing E. coli. IMPRESSION: This is a 56-year-old female with: 1. Acute kidney injury on chronic kidney disease secondary to acute tubular necrosis from sepsis. 2. Sepsis with bacteremia, likely secondary to urinary tract infection. 3. Urinary tract infection with urine culture growing Escherichia coli. 4. 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 5. History of hypertension. 6. History of diabetes mellitus. PLAN: 1. Thank you, Dr. Benítez, for this consultation. The patient likely has acute kidney injury on chronic kidney disease, so I am expecting the patient's creatinine to improve with the help of IV antibiotics. 2. The patient will need better glycemic control, continue the current IV fluids at 60 mL per hour, IV antibiotics as per infectious disease service. 3. The patient has already had a renal ultrasound done on admission which shows unremarkable ultrasound with right kidney 12.5 cm, left kidney 11 cm and normal echogenicity. 4. I will continue the current IV fluids and monitor the patient's creatinine and electrolytes. Thank you, Dr. Benítez, for this consultation. I will continue to follow this patient. Total amount of time spent including evaluations of patient's and also the plan of care management is more than 60 minutes. The patient currently seen in the med/surg floor and will be followed up along with the primary care service. Total Time Spent in patient Care and consultation including communication with Nursing Staff and educating Patient and Family is more than 60 minutes. Dictated By: FRAN QUINTERO MD, KP/ENOC Conf#: [id number] DID#: [id number] MTDD
[2016-08-20 19:59] VITALS: BP 183/80; RESP 20
[2016-08-20] MEDS: hydrALAzine 20 MG INJ IV PRN (19:59)
[2016-08-20] MEDS: ACETAMINOPHEN 325 MG TAB PO PRN (20:02)
[2016-08-20] MEDS: INSULIN GLARGINE [LANtus] 3 ML PEN SC SCH (20:22)
[2016-08-20 21:00] VITALS: BP 148/70; PULSE 90
[2016-08-20] MEDS: ATORVASTATIN 20 MG TAB PO SCH (21:01)
[2016-08-21] MEDS: ACCUCHECK XX SCH (01:01)
[2016-08-21] MEDS: SOD CHLORIDE 0.45% 1,000 ML IV SCH ×2 (02:24→03:40)
[2016-08-21] MEDS: PANTOPRAZOLE (EC) 40 MG TAB PO SCH (05:33)
[2016-08-21] MEDS: ACETAMINOPHEN 325 MG TAB PO PRN (05:33)
[2016-08-21] MEDS: MAGNESIUM HYDROXIDE 30ML CUP PO PRN (05:37)
[2016-08-21] MEDS: hydrALAzine 20 MG INJ IV PRN (05:45)
[2016-08-21 06:47] VITALS: BP 123/61; PULSE 82
[2016-08-21 07:34] VITALS: BP 149/67; RESP 20
[2016-08-21] MEDS: AMIODARONE 200 MG TAB PO SCH (08:33)
[2016-08-21] MEDS: FUROSEMIDE 40 MG TAB PO SCH (08:34)
[2016-08-21] MEDS: APIXABAN 5 MG TABLET PO SCH ×2 (08:34→20:56)
[2016-08-21] MEDS: DOCUSATE SODIUM 100 MG CAP PO SCH ×2 (08:34→20:56)
[2016-08-21] MEDS: LISINOPRIL 20 MG TAB PO SCH ×2 (08:34→20:56)
[2016-08-21] MEDS: SPIRONOLACTONE 25 MG TAB PO SCH (08:34)
[2016-08-21] MEDS: FLUTICASONE 0.05% 16 GM NAS SPRAY NASAL SCH ×2 (08:36→20:57)
[2016-08-21] MEDS: INSULIN ASPART [NOVOLOG] 3 ML PEN SC SCH ×7 (08:57→21:11)
[2016-08-21] MEDS ORDERED: NIFEdipine (XL) 60 MG TAB PO ONE (11:00)
--- NOTE | 2016-08-21 11:00 | CONS ---
Date/Time of Note Date/Time of Note DATE: 08/21/16 TIME: 10:57 Assessment/Plan Assessment/Plan Additional Assessment/Plan 1. Acute kidney injury on chronic kidney disease secondary to acute tubular necrosis from sepsis. 2. Sepsis with bacteremia, likely secondary to urinary tract infection. 3. Urinary tract infection with urine culture growing Escherichia coli. 4. 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 5. History of hypertension. 6. History of diabetes mellitus. PLAN: c/o sever headche with high BP, BP fluctuates a lot d/c spironolactone and Hydralazine decrese lasix to 40mg po daily Add Procadia XL 60mg po daily Clonidine prn SBP>150 mm hg d/c IVF will follow up no labs today tor review, AM labs has been ordered for tomrrow Consultation Date/Type/Reason Admit Date/Time Aug 17, 2016 at 11:23 Initial Consult Date 08/20/2016 Type of Consultation: NEPHROLOGY Reason for Consultation Acute kidney injury Referring Provider: SHELDON RIVERA MD 24 HR Interval Summary Free Text/Dictation pt c/o severe headache with BP fluctuations, also due to IV hydralazine Exam/Review of Systems Vital Signs Vitals Vital Signs Date Time Temp Pulse Resp B/P Pulse Ox O2 Delivery O2 Flow Rate FiO2 08/21/16 07:34 98.9 85 20 149/67 98 08/19/16 16:32 Room Air Intake and Output 08/20/16 08/20/16 08/21/16 15:00 23:00 07:00 Intake Total 2890 ml 1750 ml Balance 2890 ml 1750 ml Exam GENERAL: Awake, alert, in no distress. HEENT: Normal. Oropharynx clear. NECK: Supple, no JVD, no lymphadenopathy. LUNGS: Clear to auscultation. No crackles, no wheezes. HEART: S1, S2, with regular rhythm, no murmur. ABDOMEN: Soft, nontender, nondistended. Bowel sounds are present. EXTREMITIES: No clubbing, cyanosis, or edema. NEUROLOGICAL: Nonfocal, intact. PSYCHIATRIC: Appropriate affect and mood. Results Result Diagram: 08/20/16 0501 08/20/16 0501 Results 24 hrs Laboratory Tests Test 08/20/16 11:54 08/20/16 17:22 08/20/16 20:18 08/21/16 07:54 Bedside Glucose 210 223 H 176 171 Medications Medications Current Medications Ondansetron HCl (Zofran Inj) 4 mg Q6H PRN IV NAUSEA AND/OR VOMITING Last administered on 08/17/16 08:51; Admin Dose 4 MG; Start 08/15/16 at 18:30 Morphine Sulfate (morphine) 2 mg Q4H PRN IV SEVERE PAIN LEVEL 7-10 Last administered on 08/18/16 08:56; Admin Dose 2 MG; Start 08/15/16 at 18:30 Amiodarone HCl (Cordarone) 200 mg DAILY PO Last administered on 08/21/16 08:33 ; Admin Dose 200 MG; Start 08/16/16 at 09:00 Apixaban (Eliquis) 5 mg BID PO Last administered on 08/21/16 08:34; Admin Dose 5 MG; Start 08/15/16 at 21:00 Atorvastatin Calcium (Lipitor) 20 mg HS PO Last administered on 08/20/16 21:01 ; Admin Dose 20 MG; Start 08/15/16 at 21:00 Fluticasone Propionate (Flonase 0.05% Nasal) 1 spray BID NASAL Last administered on 08/21/16 08:36; Admin Dose 1 SPRAY; Start 08/15/16 at 21:00 Diagnostic Test (Pha) (Accucheck) 1 ea 02 XX Last administered on 08/16/16 01: 44; Admin Dose 1 EA; Start 08/16/16 at 02:00 Miscellaneous Information 1 ea NOTE XX ; Start 08/15/16 at 19:00 Glucose (Glutose) 15 gm Q15M PRN PO DECREASED GLUCOSE; Start 08/15/16 at 19:00 Glucose (Glutose) 22.5 gm Q15M PRN PO DECREASED GLUCOSE; Start 08/15/16 at 19:00 Dextrose (D50w Syringe) 25 ml Q15M PRN IV DECREASED GLUCOSE; Start 08/15/16 at 19:00 Dextrose (D50w Syringe) 50 ml Q15M PRN IV DECREASED GLUCOSE; Start 08/15/16 at 19:00 Glucagon (Glucagen) 1 mg Q15M PRN IM DECREASED GLUCOSE; Start 08/15/16 at 19:00 Glucose (Glutose) 15 gm Q15M PRN BUCCAL DECREASED GLUCOSE; Start 08/15/16 at 19: 00 Guaifenesin/ Dextromethorphan (Robitussin Dm Liquid Cup) 10 ml Q4H PRN PO cough Last administered on 08/18/16 03:31; Admin Dose 10 ML; Start 08/16/16 at 02 :00 Acetaminophen (Tylenol Tab) 650 mg Q4H PRN PO PAIN AND OR ELEVATED TEMP Last administered on 08/21/16 05:33; Admin Dose 650 MG; Start 08/16/16 at 17:30 Bisacodyl 10 mg 10 mg DAILY PRN [place] CONSTIPATION Last administered on 08/20/16 15:15; Admin Dose 10 MG; Start 08/16/16 at 17:30 Ceftriaxone Sodium (Rocephin) 50 ml @ 100 mls/hr Q24H IVPB Last administered on 08/20/16 15:06; Admin Dose 100 MLS/HR; Start 08/17/16 at 15:30; Stop at 18:00 Lisinopril (Zestril) 20 mg BID PO Last administered on 08/21/16 08:34; Admin Dose 20 MG; Start 08/17/16 at 22:30 Hydralazine HCl (Apresoline) 10 mg Q4H PRN IV ELEVATED SYSTOLIC BP Last administered on 08/21/16 05:45; Admin Dose 10 MG; Start 08/17/16 at 22:30 Senna (Senokot) 2 tab BID PRN PO CONSTIPATION Last administered on 08/20/16 15 :06; Admin Dose 2 TAB; Start 08/18/16 at 16:00 Pantoprazole (Protonix Tab) 40 mg DAILY@06 PO Last administered on 08/21/16 05 :33; Admin Dose 40 MG; Start 08/20/16 at 06:00 Insulin Glargine (Lantus) 24 unit HS SC Last administered on 08/20/16 20:22; Admin Dose 24 UNIT; Start 08/20/16 at 21:00 Docusate Sodium (Colace) 100 mg BID PO Last administered on 08/21/16 08:34; Admin Dose 100 MG; Start 08/20/16 at 10:30 Magnesium Hydroxide (Milk Of Mag) 30 ml DAILY PRN PO CONSTIPATION Last administered on 08/21/16 05:37; Admin Dose 30 ML; Start 08/20/16 at 10:00 Furosemide (Lasix) 40 mg DAILY PO ; Start 08/22/16 at 09:00; Status UNV FRAN QUINTERO MD Aug 21, 2016 11:00
--- NOTE | 2016-08-21 11:57 | CONS ---
Date/Time of Note Date/Time of Note DATE: 08/21/16 TIME: 11:54 Assessment/Plan Assessment/Plan Chief Complaint/Hosp Course ID PROGRESS NOTE TOTAL ABX DAY # total days 24H INTERVAL SUMMARY * Still has headache fluctuates with elevated SBP > 180 range, no visual changes, no fevers * ?Memory deficit ? * BCx(+) & Urine GNR (+)E.Coli * BLOOD CULTURE Final BCULT GRAM BOTTLE 1 Gram negative rods . seen on gram stain of the broth BCULT GRAM BOTTLE 2 Gram negative rods . seen on gram stain of the broth Organism 1 ESCHERICHIA COLI CRITICAL TEST VALUE BTL 1 . PHONED TO & READ BACK BY Veena SCHUMACHER @ [id number] BY [facility]. CRITICAL TEST VALUE BTL 2 . PHONED TO & READ BACK BY SANDRA @[id number] 08/16/16 BY HN. Suzanne COVINGTON M.I.C. RX --------- --- AMPICILLIN >=32 R CEFAZOLIN I CEFOTAXIME S CIPROFLOXACIN 0.5 S GENTAMICIN <=1 S LEVOFLOXACIN 1 S TOBRAMYCIN <=1 S TRIMETHOPRIM/SULFAMETHOXAZOLE >=320 R * PHYSICAL EXAMINATION: GENERAL: VSS, NAD HEENT: Unremarkable NECK: Trach midline CHEST: Rise symmetrical - without dyspnea on observation HEART: RRR ABDOMEN: Soft, EXTREMITIES: Warm, ID ASSESSMENT: 56 yo F w/PMHx 1. GNR E.Coli septicemia 2/2 GNR E.Coli UTI 2. Complicated GNR E.Coli UTI/Early Pyelonephritis without hydronephrosis 3. Cholelithiasis without evidence of biliary ductal dilation. 4. HTN = poorly controlled 5. Headache - Suspecte related to HTN B/P >160-180+ systolic range (-)MRSA Nares INVASIVES: *PIV ABX ALLERGIES: None to ABX CURRENT ABX: Ceftriaxone ID RECOMMENDATIONS: TOTAL ABX DAY # total days ABX for GNR E.Coli septicemia. * May DC Home with HH IV ABX until last day 08/29/16; alternative is treat with IV x 7 days, with "PO Switch" Monday08/22/16 to Levaquin 500mg PO daily x 7 days . Problems: Consultation Date/Type/Reason Admit Date/Time Aug 17, 2016 at 11:23 Type of Consultation: ID Referring Provider: SHELDON RIVERA MD Exam/Review of Systems Vital Signs Vitals Vital Signs Date Time Temp Pulse Resp B/P Pulse Ox O2 Delivery O2 Flow Rate FiO2 08/21/16 07:34 98.9 85 20 149/67 98 08/19/16 16:32 Room Air Intake and Output 08/20/16 08/20/16 08/21/16 15:00 23:00 07:00 Intake Total 2890 ml 1750 ml Balance 2890 ml 1750 ml Results Result Diagram: 08/20/16 0501 08/20/16 0501 Results 24 hrs Laboratory Tests Test 08/20/16 17:22 08/20/16 20:18 08/21/16 07:54 08/21/16 11:44 Bedside Glucose 223 H 176 171 298 H Medications Medications Current Medications Ondansetron HCl (Zofran Inj) 4 mg Q6H PRN IV NAUSEA AND/OR VOMITING Last administered on 08/17/16 08:51; Admin Dose 4 MG; Start 08/15/16 at 18:30 Morphine Sulfate (morphine) 2 mg Q4H PRN IV SEVERE PAIN LEVEL 7-10 Last administered on 08/18/16 08:56; Admin Dose 2 MG; Start 08/15/16 at 18:30 Amiodarone HCl (Cordarone) 200 mg DAILY PO Last administered on 08/21/16 08:33 ; Admin Dose 200 MG; Start 08/16/16 at 09:00 Apixaban (Eliquis) 5 mg BID PO Last administered on 08/21/16 08:34; Admin Dose 5 MG; Start 08/15/16 at 21:00 Atorvastatin Calcium (Lipitor) 20 mg HS PO Last administered on 08/20/16 21:01 ; Admin Dose 20 MG; Start 08/15/16 at 21:00 Fluticasone Propionate (Flonase 0.05% Nasal) 1 spray BID NASAL Last administered on 08/21/16 08:36; Admin Dose 1 SPRAY; Start 08/15/16 at 21:00 Diagnostic Test (Pha) (Accucheck) 1 ea 02 XX Last administered on 08/16/16 01: 44; Admin Dose 1 EA; Start 08/16/16 at 02:00 Miscellaneous Information 1 ea NOTE XX ; Start 08/15/16 at 19:00 Glucose (Glutose) 15 gm Q15M PRN PO DECREASED GLUCOSE; Start 08/15/16 at 19:00 Glucose (Glutose) 22.5 gm Q15M PRN PO DECREASED GLUCOSE; Start 08/15/16 at 19:00 Dextrose (D50w Syringe) 25 ml Q15M PRN IV DECREASED GLUCOSE; Start 08/15/16 at 19:00 Dextrose (D50w Syringe) 50 ml Q15M PRN IV DECREASED GLUCOSE; Start 08/15/16 at 19:00 Glucagon (Glucagen) 1 mg Q15M PRN IM DECREASED GLUCOSE; Start 08/15/16 at 19:00 Glucose (Glutose) 15 gm Q15M PRN BUCCAL DECREASED GLUCOSE; Start 08/15/16 at 19: 00 Guaifenesin/ Dextromethorphan (Robitussin Dm Liquid Cup) 10 ml Q4H PRN PO cough Last administered on 08/18/16 03:31; Admin Dose 10 ML; Start 08/16/16 at 02 :00 Acetaminophen (Tylenol Tab) 650 mg Q4H PRN PO PAIN AND OR ELEVATED TEMP Last administered on 08/21/16 05:33; Admin Dose 650 MG; Start 08/16/16 at 17:30 Bisacodyl 10 mg 10 mg DAILY PRN [place] CONSTIPATION Last administered on 08/20/16 15:15; Admin Dose 10 MG; Start 08/16/16 at 17:30 Ceftriaxone Sodium (Rocephin) 50 ml @ 100 mls/hr Q24H IVPB Last administered on 08/20/16 15:06; Admin Dose 100 MLS/HR; Start 08/17/16 at 15:30; Stop at 18:00 Lisinopril (Zestril) 20 mg BID PO Last administered on 08/21/16 08:34; Admin Dose 20 MG; Start 08/17/16 at 22:30 Senna (Senokot) 2 tab BID PRN PO CONSTIPATION Last administered on 08/20/16 15 :06; Admin Dose 2 TAB; Start 08/18/16 at 16:00 Pantoprazole (Protonix Tab) 40 mg DAILY@06 PO Last administered on 08/21/16 05 :33; Admin Dose 40 MG; Start 08/20/16 at 06:00 Insulin Glargine (Lantus) 24 unit HS SC Last administered on 08/20/16 20:22; Admin Dose 24 UNIT; Start 08/20/16 at 21:00 Docusate Sodium (Colace) 100 mg BID PO Last administered on 08/21/16 08:34; Admin Dose 100 MG; Start 08/20/16 at 10:30 Magnesium Hydroxide (Milk Of Mag) 30 ml DAILY PRN PO CONSTIPATION Last administered on 08/21/16 05:37; Admin Dose 30 ML; Start 08/20/16 at 10:00 Furosemide (Lasix) 40 mg DAILY PO ; Start 08/22/16 at 09:00 Nifedipine (Procardia Xl) 60 mg ONCE ONCE PO ; Start 08/21/16 at 11:00; Stop at 11:01 Nifedipine (Procardia Xl) 60 mg DAILY PO ; Start 08/22/16 at 09:00 Clonidine (Catapres) 0.1 mg Q6H PRN PO SBP>150 mm hg ; Start 08/21/16 at 11:00 ROGER AGOSTO NP Aug 21, 2016 11:57
[2016-08-21] MEDS: SENNA TAB PO PRN (12:37)
[2016-08-21] MEDS: CEFTRIAXONE 1 GM/50 ML (PMX) 50 ML IVPB SCH (15:56)
[2016-08-21 19:41] VITALS: BP 119/56; RESP 16
[2016-08-21] MEDS: ATORVASTATIN 20 MG TAB PO SCH (20:56)
[2016-08-21] MEDS: INSULIN GLARGINE [LANtus] 3 ML PEN SC SCH (21:01)
[2016-08-22] MEDS: ACCUCHECK XX SCH (02:40)
[2016-08-22 05:05] LABS: BASOPHILS % 0.2 % (0.0-2.0); EOSINOPHILS # 0.1 10^3/ul (0.0-0.5); EOSINOPHILS % 1.5 % (0.0-7.0); HEMATOCRIT 28.1 % (37.0-47.0); HEMOGLOBIN 9.8 g/dl (12.0-16.0); LYMPHOCYTES % 22.2 % (15.0-51.0); MEAN CORPUSCULAR HEMOGLOBIN 31.7 pg (29.0-33.0); MEAN CORPUSCULAR VOLUME 90.7 fl (82.0-101.0); MEAN PLATELET VOLUME 6.8 fl (7.4-10.4); MONOCYTE # 0.7 10^3/ul (0.3-0.9); MONOCYTES % 7.9 % (0.0-11.0); NEUTROPHIL # 6.3 10^3/ul (1.6-7.5); NEUTROPHILS % 68.2 % (39.0-77.0); PLATELET COUNT 398 10^3/UL (140-440); RED CELL DISTRIBUTION WIDTH 12.4 % (11.5-14.5); UNCORRECTED WBC 9.2 10^3/ul (4.8-10.8); WHITE BLOOD COUNT 9.2 10^3/ul (4.8-10.8)
[2016-08-22 05:10] LABS: INR 1.29; PROTIME 16.2 Sec (12.2-14.2); PT RATIO 1.3
[2016-08-22 05:11] LABS: PARTIAL THROMBOPLASTIN TIME 34.9 Sec (25.0-35.0)
[2016-08-22] MEDS: PANTOPRAZOLE (EC) 40 MG TAB PO SCH (05:18)
[2016-08-22] MEDS: MAGNESIUM HYDROXIDE 30ML CUP PO PRN (05:18)
[2016-08-22 05:21] LABS: ALBUMIN 3.3 g/dl (3.3-4.9)
[2016-08-22 05:22] LABS: POTASSIUM 4.3 mmol/L (3.5-5.1)
[2016-08-22 05:24] LABS: ALBUMIN/GLOBULIN RATIO 1.06; BILIRUBIN,INDIRECT 0.3 mg/dl (0-1.1); BILIRUBIN,TOTAL 0.3 mg/dl (0.2-1.3); CREATININE 1.34 mg/dl (0.44-1.00); TOTAL PROTEIN 6.4 g/dl (6.1-8.1)
[2016-08-22 05:25] LABS: CALCIUM 9.1 mg/dl (8.4-10.2)
[2016-08-22 05:47] LABS: CONDITION 1
[2016-08-22 07:41] VITALS: BP 149/73; RESP 20
[2016-08-22] MEDS: APIXABAN 5 MG TABLET PO SCH ×2 (08:19→21:06)
[2016-08-22] MEDS: NIFEdipine (XL) 60 MG TAB PO SCH (08:19)
[2016-08-22] MEDS: FUROSEMIDE 40 MG TAB PO SCH (08:20)
[2016-08-22] MEDS: LISINOPRIL 20 MG TAB PO SCH ×2 (08:20→21:06)
[2016-08-22] MEDS: DOCUSATE SODIUM 100 MG CAP PO SCH ×2 (08:21→21:06)
[2016-08-22] MEDS: AMIODARONE 200 MG TAB PO SCH (08:21)
[2016-08-22] MEDS: FLUTICASONE 0.05% 16 GM NAS SPRAY NASAL SCH ×2 (08:25→21:07)
[2016-08-22] MEDS: INSULIN ASPART [NOVOLOG] 3 ML PEN SC SCH ×7 (08:33→22:04)
[2016-08-22] MEDS: SENNA TAB PO PRN (13:49)
--- NOTE | 2016-08-22 15:07 | CONS ---
Date/Time of Note Date/Time of Note DATE: 08/22/16 TIME: 15:05 Assessment/Plan Assessment/Plan Additional Assessment/Plan 1. Acute kidney injury on chronic kidney disease secondary to acute tubular necrosis from sepsis. 2. Sepsis with bacteremia, likely secondary to urinary tract infection. 3. Urinary tract infection with urine culture growing Escherichia coli. 4. 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 5. History of hypertension. 6. History of diabetes mellitus. PLAN: Cr slowly improving c/o sever headche with high BP, BP fluctuates a lot d/c spironolactone and Hydralazine decrese lasix to 40mg po daily Added Procadia XL 60mg po daily Clonidine prn SBP>150 mm hg will follow up Consultation Date/Type/Reason Admit Date/Time Aug 17, 2016 at 11:23 Initial Consult Date 08/20/2016 Type of Consultation: NEPHROLOGY Referring Provider: SHELDON RIVERA MD 24 HR Interval Summary Free Text/Dictation pt remained afebrile, BP stable Exam/Review of Systems Vital Signs Vitals Vital Signs Date Time Temp Pulse Resp B/P Pulse Ox O2 Delivery O2 Flow Rate FiO2 08/22/16 07:41 97.8 82 20 149/73 98 08/19/16 16:32 Room Air Intake and Output 08/21/16 08/21/16 08/22/16 15:00 23:00 07:00 Intake Total 480 ml 1230 ml Balance 480 ml 1230 ml Exam GENERAL: Awake, alert, in no distress. HEENT: Normal. Oropharynx clear. NECK: Supple, no JVD, no lymphadenopathy. LUNGS: Clear to auscultation. No crackles, no wheezes. HEART: S1, S2, with regular rhythm, no murmur. ABDOMEN: Soft, nontender, nondistended. Bowel sounds are present. EXTREMITIES: No clubbing, cyanosis, or edema. NEUROLOGICAL: Nonfocal, intact. PSYCHIATRIC: Appropriate affect and mood. Results Result Diagram: 08/22/16 0435 08/22/16 0435 Results 24 hrs Laboratory Tests Test 08/21/16 17:23 08/21/16 20:54 08/22/16 02:34 08/22/16 04:35 Bedside Glucose 114 183 170 Activated Partial Thromboplast Time 34.9 Alanine Aminotransferase (ALT/SGPT) 33 Albumin 3.3 Albumin/Globulin Ratio 1.06 Alkaline Phosphatase 69 Anion Gap 13 Aspartate Amino Transf (AST/SGOT) 21 Basophils # 0.0 Basophils % 0.2 Blood Morphology Comment Blood Urea Nitrogen 23 H Calcium Level 9.1 Carbon Dioxide Level 32 H Chloride Level 100 Creatinine 1.34 H Direct Bilirubin 0.00 Eosinophils # 0.1 Eosinophils % 1.5 Globulin 3.10 Glucose Level 143 # Hematocrit 28.1 L Hemoglobin 9.8 L INR International Normalized Ratio 1.29 Indirect Bilirubin 0.3 Lymphocytes # 2.0 Lymphocytes % 22.2 Mean Corpuscular Hemoglobin 31.7 Mean Corpuscular Hemoglobin Concent 35.0 Mean Corpuscular Volume 90.7 Mean Platelet Volume 6.8 #L Monocytes # 0.7 Monocytes % 7.9 Neutrophils # 6.3 Neutrophils % 68.2 Nucleated Red Blood Cells # 0.0 Nucleated Red Blood Cells % 0.0 Platelet Count 398 # Potassium Level 4.3 Prothrombin Time 16.2 H Prothrombin Time Ratio 1.3 Red Blood Count 3.10 L Red Cell Distribution Width 12.4 Sodium Level 141 Total Bilirubin 0.3 Total Protein 6.4 White Blood Count 9.2 # Test 08/22/16 07:38 08/22/16 11:52 Bedside Glucose 151 199 Medications Medications Current Medications Ondansetron HCl (Zofran Inj) 4 mg Q6H PRN IV NAUSEA AND/OR VOMITING Last administered on 08/17/16 08:51; Admin Dose 4 MG; Start 08/15/16 at 18:30 Morphine Sulfate (morphine) 2 mg Q4H PRN IV SEVERE PAIN LEVEL 7-10 Last administered on 08/18/16 08:56; Admin Dose 2 MG; Start 08/15/16 at 18:30 Amiodarone HCl (Cordarone) 200 mg DAILY PO Last administered on 08/22/16 08:21 ; Admin Dose 200 MG; Start 08/16/16 at 09:00 Apixaban (Eliquis) 5 mg BID PO Last administered on 08/22/16 08:19; Admin Dose 5 MG; Start 08/15/16 at 21:00 Atorvastatin Calcium (Lipitor) 20 mg HS PO Last administered on 08/21/16 20:56 ; Admin Dose 20 MG; Start 08/15/16 at 21:00 Fluticasone Propionate (Flonase 0.05% Nasal) 1 spray BID NASAL Last administered on 08/21/16 20:57; Admin Dose 1 SPRAY; Start 08/15/16 at 21:00 Diagnostic Test (Pha) (Accucheck) 1 ea 02 XX Last administered on 08/22/16 02: 40; Admin Dose 1 EA; Start 08/16/16 at 02:00 Miscellaneous Information 1 ea NOTE XX ; Start 08/15/16 at 19:00 Glucose (Glutose) 15 gm Q15M PRN PO DECREASED GLUCOSE; Start 08/15/16 at 19:00 Glucose (Glutose) 22.5 gm Q15M PRN PO DECREASED GLUCOSE; Start 08/15/16 at 19:00 Dextrose (D50w Syringe) 25 ml Q15M PRN IV DECREASED GLUCOSE; Start 08/15/16 at 19:00 Dextrose (D50w Syringe) 50 ml Q15M PRN IV DECREASED GLUCOSE; Start 08/15/16 at 19:00 Glucagon (Glucagen) 1 mg Q15M PRN IM DECREASED GLUCOSE; Start 08/15/16 at 19:00 Glucose (Glutose) 15 gm Q15M PRN BUCCAL DECREASED GLUCOSE; Start 08/15/16 at 19: 00 Guaifenesin/ Dextromethorphan (Robitussin Dm Liquid Cup) 10 ml Q4H PRN PO cough Last administered on 08/18/16 03:31; Admin Dose 10 ML; Start 08/16/16 at 02 :00 Acetaminophen (Tylenol Tab) 650 mg Q4H PRN PO PAIN AND OR ELEVATED TEMP Last administered on 08/21/16 05:33; Admin Dose 650 MG; Start 08/16/16 at 17:30 Bisacodyl (Dulcolax Supp) 10 mg DAILY PRN [place] CONSTIPATION Last administered on 08/20/16 15:15; Admin Dose 10 MG; Start 08/16/16 at 17:30 Lisinopril (Zestril) 20 mg BID PO Last administered on 08/22/16 08:20; Admin Dose 20 MG; Start 08/17/16 at 22:30 Senna (Senokot) 2 tab BID PRN PO CONSTIPATION Last administered on 08/22/16 13 :49; Admin Dose 2 TAB; Start 08/18/16 at 16:00 Pantoprazole (Protonix Tab) 40 mg DAILY@06 PO Last administered on 08/22/16 05 :18; Admin Dose 40 MG; Start 08/20/16 at 06:00 Insulin Glargine (Lantus) 24 unit HS SC Last administered on 08/21/16 21:01; Admin Dose 24 UNIT; Start 08/20/16 at 21:00 Docusate Sodium (Colace) 100 mg BID PO Last administered on 08/22/16 08:21; Admin Dose 100 MG; Start 08/20/16 at 10:30 Magnesium Hydroxide (Milk Of Mag) 30 ml DAILY PRN PO CONSTIPATION Last administered on 08/22/16 05:18; Admin Dose 30 ML; Start 08/20/16 at 10:00 Furosemide (Lasix) 40 mg DAILY PO Last administered on 08/22/16 08:20; Admin Dose 40 MG; Start 08/22/16 at 09:00 Nifedipine (Procardia Xl) 60 mg DAILY PO Last administered on 08/22/16 08:19; Admin Dose 60 MG; Start 08/22/16 at 09:00 Clonidine (Catapres) 0.1 mg Q6H PRN PO SBP>150 mm hg ; Start 08/21/16 at 11:00 Ciprofloxacin (Cipro) 500 mg BID@,18 PO ; Start 08/22/16 at 18:00 FRAN QUINTERO MD Aug 22, 2016 15:07
[2016-08-22] MEDS: CIPROFLOXACIN 500 MG TAB PO SCH (17:32)
--- NOTE | 2016-08-22 18:01 | PN ---
Date/Time of Note Date/Time of Note DATE: 08/22/16 TIME: 17:59 Assessment/Plan VTE Prophylaxis VTE Prophylaxis Intervention: SCD's Lines/[facility] Urinary Cath still in place: No Assessment/Plan Chief Complaint/Hosp Course ASSESSMENT AND PLAN - Acute cystitis. Continue antibiotics per ID. - Sepsis with fever, leukocytosis, and elevated lactic acid and E. coli bacteremia. Dr. Mena is following in infection disease consultation. - Gastritis per EGD. Continue Protonix. - Diabetes mellitus type 2. Hemoglobin A1c is 9.2. Continue Lantus not pre- meal NovoLog and NovoLog per mild algorithm sliding scale. - Congestive heart failure with ejection fraction of 35%. Continue patient on Lasix and Aldactone. - Paroxysmal atrial fibrillation. Continue Eliquis. - Hypertension. Continue lisinopril. - Acute kidney injury. Renal ultrasound is reviewed . Monitor BUN and creatinine. - Nausea and vomiting, resolved, continue Zofran p.r.n. for nausea and morphine p.r.n. for pain. Dr. Kumar is following in gastroenterology consultation. Continue Protonix for peptic ulcer disease prophylaxis. Further recommendations based on clinical course. Plan of care discussed with Dr. Benítez. Problems: Subjective 24 Hr Interval Summary Free Text/Dictation Patient stated that she feels better, denies headache, denies fever nausea vomiting. Exam/Review of Systems Vital Signs Vitals Vital Signs Date Time Temp Pulse Resp B/P Pulse Ox O2 Delivery O2 Flow Rate FiO2 08/22/16 07:41 97.8 82 20 149/73 98 08/19/16 16:32 Room Air Intake and Output 08/21/16 08/21/16 08/22/16 14:59 22:59 06:59 Intake Total 480 ml 1230 ml Balance 480 ml 1230 ml Exam GENERAL: Well-developed, well-nourished female, currently awake, alert. HEENT: Head is atraumatic, normocephalic. PERRLA. NECK: Supple, no cervical lymphadenopathy, no thyromegaly. CHEST: Lungs clear bilaterally. There is no rhonchi, wheezes, rales noted. CARDIOVASCULAR: Normal sinus rhythm. No murmurs, gallops, clicks, rubs noted. GASTROINTESTINAL: Abdomen is protuberant, soft, nondistended, nontender. Bowel sounds present. EXTREMITIES: There is no edema, clubbing, cyanosis. SKIN: No rash, petechiae noted. NEUROLOGIC: Patient is awake, alert, and oriented x4. Results Result Diagram: 08/22/16 0435 08/22/16 0435 Results 24 hrs Laboratory Tests Test 08/21/16 20:54 08/22/16 02:34 08/22/16 04:35 08/22/16 07:38 Bedside Glucose 183 170 151 Activated Partial Thromboplast Time 34.9 Alanine Aminotransferase (ALT/SGPT) 33 Albumin 3.3 Albumin/Globulin Ratio 1.06 Alkaline Phosphatase 69 Anion Gap 13 Aspartate Amino Transf (AST/SGOT) 21 Basophils # 0.0 Basophils % 0.2 Blood Morphology Comment Blood Urea Nitrogen 23 H Calcium Level 9.1 Carbon Dioxide Level 32 H Chloride Level 100 Creatinine 1.34 H Direct Bilirubin 0.00 Eosinophils # 0.1 Eosinophils % 1.5 Globulin 3.10 Glucose Level 143 # Hematocrit 28.1 L Hemoglobin 9.8 L INR International Normalized Ratio 1.29 Indirect Bilirubin 0.3 Lymphocytes # 2.0 Lymphocytes % 22.2 Mean Corpuscular Hemoglobin 31.7 Mean Corpuscular Hemoglobin Concent 35.0 Mean Corpuscular Volume 90.7 Mean Platelet Volume 6.8 #L Monocytes # 0.7 Monocytes % 7.9 Neutrophils # 6.3 Neutrophils % 68.2 Nucleated Red Blood Cells # 0.0 Nucleated Red Blood Cells % 0.0 Platelet Count 398 # Potassium Level 4.3 Prothrombin Time 16.2 H Prothrombin Time Ratio 1.3 Red Blood Count 3.10 L Red Cell Distribution Width 12.4 Sodium Level 141 Total Bilirubin 0.3 Total Protein 6.4 White Blood Count 9.2 # Test 08/22/16 11:52 08/22/16 17:23 Bedside Glucose 199 171 Medications Medications Current Medications Ondansetron HCl (Zofran Inj) 4 mg Q6H PRN IV NAUSEA AND/OR VOMITING Last administered on 08/17/16 08:51; Admin Dose 4 MG; Start 08/15/16 at 18:30 Morphine Sulfate (morphine) 2 mg Q4H PRN IV SEVERE PAIN LEVEL 7-10 Last administered on 08/18/16 08:56; Admin Dose 2 MG; Start 08/15/16 at 18:30 Amiodarone HCl (Cordarone) 200 mg DAILY PO Last administered on 08/22/16 08:21 ; Admin Dose 200 MG; Start 08/16/16 at 09:00 Apixaban (Eliquis) 5 mg BID PO Last administered on 08/22/16 08:19; Admin Dose 5 MG; Start 08/15/16 at 21:00 Atorvastatin Calcium (Lipitor) 20 mg HS PO Last administered on 08/21/16 20:56 ; Admin Dose 20 MG; Start 08/15/16 at 21:00 Fluticasone Propionate (Flonase 0.05% Nasal) 1 spray BID NASAL Last administered on 08/21/16 20:57; Admin Dose 1 SPRAY; Start 08/15/16 at 21:00 Diagnostic Test (Pha) (Accucheck) 1 ea 02 XX Last administered on 08/22/16 02: 40; Admin Dose 1 EA; Start 08/16/16 at 02:00 Miscellaneous Information 1 ea NOTE XX ; Start 08/15/16 at 19:00 Glucose (Glutose) 15 gm Q15M PRN PO DECREASED GLUCOSE; Start 08/15/16 at 19:00 Glucose (Glutose) 22.5 gm Q15M PRN PO DECREASED GLUCOSE; Start 08/15/16 at 19:00 Dextrose (D50w Syringe) 25 ml Q15M PRN IV DECREASED GLUCOSE; Start 08/15/16 at 19:00 Dextrose (D50w Syringe) 50 ml Q15M PRN IV DECREASED GLUCOSE; Start 08/15/16 at 19:00 Glucagon (Glucagen) 1 mg Q15M PRN IM DECREASED GLUCOSE; Start 08/15/16 at 19:00 Glucose (Glutose) 15 gm Q15M PRN BUCCAL DECREASED GLUCOSE; Start 08/15/16 at 19: 00 Guaifenesin/ Dextromethorphan (Robitussin Dm Liquid Cup) 10 ml Q4H PRN PO cough Last administered on 08/18/16 03:31; Admin Dose 10 ML; Start 08/16/16 at 02 :00 Acetaminophen (Tylenol Tab) 650 mg Q4H PRN PO PAIN AND OR ELEVATED TEMP Last administered on 08/21/16 05:33; Admin Dose 650 MG; Start 08/16/16 at 17:30 Bisacodyl (Dulcolax Supp) 10 mg DAILY PRN [place] CONSTIPATION Last administered on 08/20/16 15:15; Admin Dose 10 MG; Start 08/16/16 at 17:30 Lisinopril (Zestril) 20 mg BID PO Last administered on 08/22/16 08:20; Admin Dose 20 MG; Start 08/17/16 at 22:30 Senna (Senokot) 2 tab BID PRN PO CONSTIPATION Last administered on 08/22/16 13 :49; Admin Dose 2 TAB; Start 08/18/16 at 16:00 Pantoprazole (Protonix Tab) 40 mg DAILY@06 PO Last administered on 08/22/16 05 :18; Admin Dose 40 MG; Start 08/20/16 at 06:00 Insulin Glargine (Lantus) 24 unit HS SC Last administered on 08/21/16 21:01; Admin Dose 24 UNIT; Start 08/20/16 at 21:00 Docusate Sodium (Colace) 100 mg BID PO Last administered on 08/22/16 08:21; Admin Dose 100 MG; Start 08/20/16 at 10:30 Magnesium Hydroxide (Milk Of Mag) 30 ml DAILY PRN PO CONSTIPATION Last administered on 08/22/16 05:18; Admin Dose 30 ML; Start 08/20/16 at 10:00 Furosemide (Lasix) 40 mg DAILY PO Last administered on 08/22/16 08:20; Admin Dose 40 MG; Start 08/22/16 at 09:00 Nifedipine (Procardia Xl) 60 mg DAILY PO Last administered on 08/22/16 08:19; Admin Dose 60 MG; Start 08/22/16 at 09:00 Clonidine (Catapres) 0.1 mg Q6H PRN PO SBP>150 mm hg ; Start 08/21/16 at 11:00 Ciprofloxacin (Cipro) 500 mg BID@,18 PO Last administered on 08/22/16 17:32 ; Admin Dose 500 MG; Start 08/22/16 at 18:00 ANUSHA DIAZ Aug 22, 2016 18:01
[2016-08-22 19:31] VITALS: BP 143/63; RESP 20
--- NOTE | 2016-08-22 20:32 | PN ---
DATE: 08/22/2016 SUBJECTIVE: No acute events overnight. No fevers. The patient is alert, wants to go home. VITAL SIGNS: Stable. LABORATORIES: WBC today 9.2, no shift, no bands. BUN 23, creatinine 1.34. MICROBIOLOGY: Repeat blood cultures pending. PHYSICAL EXAMINATION: GENERAL: Well-developed middle-aged woman who is alert, in no distress. HEENT: Head atraumatic, normocephalic. Sclerae anicteric. Buccal mucosa pink. NECK: Supple, trachea midline. CHEST: Rise symmetrical. Breath sounds diminished to bases. HEART: S1, S2. ABDOMEN: Soft, bowel tones present. EXTREMITIES: Without cyanosis or edema. ASSESSMENT: 1. Status post systemic inflammatory response syndrome. 2. Escherichia coli urinary tract infection with bacteremia. 3. Hypertension. 4. Diabetes. 5. Acute kidney injury. PLAN: The patient is doing better. We are going to discontinue Rocephin and start her on oral cipr ofloxacin to complete 2 weeks antibiotics for bacteremia. Dictated By: MCKAYLA [place] SUPERINTENDENT for ANDRES TEJEDA/ENOC Conf#: [id number] DID#: [id number]
[2016-08-22] MEDS: ATORVASTATIN 20 MG TAB PO SCH (21:06)
[2016-08-22] MEDS: INSULIN GLARGINE [LANtus] 3 ML PEN SC SCH (21:13)
[2016-08-23 02:35] VITALS: BP 159/75; PULSE 81
[2016-08-23] MEDS: ACCUCHECK XX SCH (02:36)
[2016-08-23 05:54] LABS: POTASSIUM 4.6 mmol/L (3.5-5.1)
[2016-08-23 05:56] LABS: CREATININE 1.25 mg/dl (0.44-1.00)
[2016-08-23 05:57] LABS: CALCIUM 9.2 mg/dl (8.4-10.2)
[2016-08-23 05:59] LABS: BASOPHILS % 0.2 % (0.0-2.0); EOSINOPHILS # 0.2 10^3/ul (0.0-0.5); EOSINOPHILS % 1.7 % (0.0-7.0); HEMATOCRIT 29.9 % (37.0-47.0); HEMOGLOBIN 10.2 g/dl (12.0-16.0); LYMPHOCYTES # 2.1 10^3/ul (0.8-2.9); LYMPHOCYTES % 23.1 % (15.0-51.0); MEAN CORPUSCULAR HEMOGLOBIN 31.5 pg (29.0-33.0); MEAN CORPUSCULAR HGB CONC 34.2 g/dl (32.0-37.0); MEAN CORPUSCULAR VOLUME 92.3 fl (82.0-101.0); MEAN PLATELET VOLUME 7.2 fl (7.4-10.4); MONOCYTE # 0.7 10^3/ul (0.3-0.9); MONOCYTES % 7.3 % (0.0-11.0); NEUTROPHIL # 6.2 10^3/ul (1.6-7.5); NEUTROPHILS % 67.7 % (39.0-77.0); PLATELET COUNT 393 10^3/UL (140-440); RED BLOOD COUNT 3.24 10^6/ul (4.20-5.40); RED CELL DISTRIBUTION WIDTH 12.5 % (11.5-14.5); UNCORRECTED WBC 9.2 10^3/ul (4.8-10.8); WHITE BLOOD COUNT 9.2 10^3/ul (4.8-10.8)
[2016-08-23 06:10] VITALS: BP 149/67; PULSE 72
[2016-08-23] MEDS: CIPROFLOXACIN 500 MG TAB PO SCH ×2 (06:12→17:58)
[2016-08-23] MEDS: PANTOPRAZOLE (EC) 40 MG TAB PO SCH (06:12)
[2016-08-23] MEDS: MAGNESIUM HYDROXIDE 30ML CUP PO PRN (06:12)
[2016-08-23 06:20] LABS: CONDITION 1
[2016-08-23 07:06] VITALS: BP 139/66; RESP 20
[2016-08-23] MEDS: INSULIN ASPART [NOVOLOG] 3 ML PEN SC SCH ×7 (08:28→21:00)
[2016-08-23] MEDS: FLUTICASONE 0.05% 16 GM NAS SPRAY NASAL SCH ×2 (09:20→21:14)
[2016-08-23] MEDS: DOCUSATE SODIUM 100 MG CAP PO SCH ×2 (09:20→21:14)
[2016-08-23] MEDS: NIFEdipine (XL) 60 MG TAB PO SCH (09:21)
[2016-08-23] MEDS: LISINOPRIL 20 MG TAB PO SCH ×2 (09:21→21:14)
[2016-08-23] MEDS: FUROSEMIDE 40 MG TAB PO SCH (09:21)
[2016-08-23] MEDS: AMIODARONE 200 MG TAB PO SCH (09:21)
[2016-08-23] MEDS: APIXABAN 5 MG TABLET PO SCH (09:22)
--- NOTE | 2016-08-23 12:14 | CONS ---
Date/Time of Note Date/Time of Note DATE: 08/23/16 TIME: 12:13 Assessment/Plan Assessment/Plan Chief Complaint/Hosp Course SUBJECTIVE: No acute events overnight. No fevers. The patient is alert, feels good. MICROBIOLOGY: Repeat blood cultures pending. PHYSICAL EXAMINATION: GENERAL: Well-developed middle-aged woman who is alert, in no distress. HEENT: Head atraumatic, normocephalic. Sclerae anicteric. Buccal mucosa pink. NECK: Supple, trachea midline. CHEST: Rise symmetrical. Breath sounds diminished to bases. HEART: S1, S2. ABDOMEN: Soft, bowel tones present. EXTREMITIES: Without cyanosis or edema. ASSESSMENT: 1. Status post systemic inflammatory response syndrome. 2. Escherichia coli urinary tract infection with bacteremia. 3. Hypertension. 4. Diabetes. 5. Acute kidney injury. PLAN: The patient is doing better. S/p Rocephin, now on oral ciprofloxacin to complete 2 weeks antibiotics for bacteremia. Will f/u repeat bld cx DW pt Problems: Consultation Date/Type/Reason Admit Date/Time Aug 17, 2016 at 11:23 Initial Consult Date Type of Consultation: ID Referring Provider: SHELDON RIVERA MD Exam/Review of Systems Vital Signs Vitals Vital Signs Date Time Temp Pulse Resp B/P Pulse Ox O2 Delivery O2 Flow Rate FiO2 08/23/16 07:06 97.7 78 20 139/66 100 08/19/16 16:32 Room Air Intake and Output 08/22/16 08/22/16 08/23/16 15:00 23:00 07:00 Intake Total 2220 ml 240 ml Output Total 1650 ml Balance 570 ml 240 ml Results Result Diagram: 08/23/16 0500 08/23/16 0500 Results 24 hrs Laboratory Tests Test 08/22/16 17:23 08/22/16 21:09 08/23/16 02:30 08/23/16 05:00 Bedside Glucose 171 188 138 Anion Gap 16 Basophils # 0.0 Basophils % 0.2 Blood Morphology Comment Blood Urea Nitrogen 26 H Calcium Level 9.2 Carbon Dioxide Level 30 Chloride Level 99 Creatinine 1.25 H Eosinophils # 0.2 Eosinophils % 1.7 Glucose Level 165 Hematocrit 29.9 L Hemoglobin 10.2 L Lymphocytes # 2.1 Lymphocytes % 23.1 Mean Corpuscular Hemoglobin 31.5 Mean Corpuscular Hemoglobin Concent 34.2 Mean Corpuscular Volume 92.3 Mean Platelet Volume 7.2 L Monocytes # 0.7 Monocytes % 7.3 Neutrophils # 6.2 Neutrophils % 67.7 Nucleated Red Blood Cells # 0.0 Nucleated Red Blood Cells % 0.0 Platelet Count 393 Potassium Level 4.6 Red Blood Count 3.24 L Red Cell Distribution Width 12.5 Sodium Level 140 White Blood Count 9.2 Test 08/23/16 07:57 08/23/16 11:42 Bedside Glucose 151 202 Medications Medications Current Medications Ondansetron HCl (Zofran Inj) 4 mg Q6H PRN IV NAUSEA AND/OR VOMITING Last administered on 08/17/16 08:51; Admin Dose 4 MG; Start 08/15/16 at 18:30 Morphine Sulfate (morphine) 2 mg Q4H PRN IV SEVERE PAIN LEVEL 7-10 Last administered on 08/18/16 08:56; Admin Dose 2 MG; Start 08/15/16 at 18:30 Amiodarone HCl (Cordarone) 200 mg DAILY PO Last administered on 08/23/16 09:21 ; Admin Dose 200 MG; Start 08/16/16 at 09:00 Apixaban (Eliquis) 5 mg BID PO Last administered on 08/23/16 09:22; Admin Dose 5 MG; Start 08/15/16 at 21:00 Atorvastatin Calcium (Lipitor) 20 mg HS PO Last administered on 08/22/16 21:06 ; Admin Dose 20 MG; Start 08/15/16 at 21:00 Fluticasone Propionate (Flonase 0.05% Nasal) 1 spray BID NASAL Last administered on 08/23/16 09:20; Admin Dose 1 SPRAY; Start 08/15/16 at 21:00 Diagnostic Test (Pha) (Accucheck) 1 ea 02 XX Last administered on 08/23/16 02: 36; Admin Dose 1 EA; Start 08/16/16 at 02:00 Miscellaneous Information 1 ea NOTE XX ; Start 08/15/16 at 19:00 Glucose (Glutose) 15 gm Q15M PRN PO DECREASED GLUCOSE; Start 08/15/16 at 19:00 Glucose (Glutose) 22.5 gm Q15M PRN PO DECREASED GLUCOSE; Start 08/15/16 at 19:00 Dextrose (D50w Syringe) 25 ml Q15M PRN IV DECREASED GLUCOSE; Start 08/15/16 at 19:00 Dextrose (D50w Syringe) 50 ml Q15M PRN IV DECREASED GLUCOSE; Start 08/15/16 at 19:00 Glucagon (Glucagen) 1 mg Q15M PRN IM DECREASED GLUCOSE; Start 08/15/16 at 19:00 Glucose (Glutose) 15 gm Q15M PRN BUCCAL DECREASED GLUCOSE; Start 08/15/16 at 19: 00 Guaifenesin/ Dextromethorphan (Robitussin Dm Liquid Cup) 10 ml Q4H PRN PO cough Last administered on 08/18/16 03:31; Admin Dose 10 ML; Start 08/16/16 at 02 :00 Acetaminophen (Tylenol Tab) 650 mg Q4H PRN PO PAIN AND OR ELEVATED TEMP Last administered on 08/21/16 05:33; Admin Dose 650 MG; Start 08/16/16 at 17:30 Bisacodyl (Dulcolax Supp) 10 mg DAILY PRN [place] CONSTIPATION Last administered on 08/20/16 15:15; Admin Dose 10 MG; Start 08/16/16 at 17:30 Lisinopril (Zestril) 20 mg BID PO Last administered on 08/23/16 09:21; Admin Dose 20 MG; Start 08/17/16 at 22:30 Senna (Senokot) 2 tab BID PRN PO CONSTIPATION Last administered on 08/22/16 13 :49; Admin Dose 2 TAB; Start 08/18/16 at 16:00 Pantoprazole (Protonix Tab) 40 mg DAILY@06 PO Last administered on 08/23/16 06 :12; Admin Dose 40 MG; Start 08/20/16 at 06:00 Insulin Glargine (Lantus) 24 unit HS SC Last administered on 08/22/16 21:13; Admin Dose 24 UNIT; Start 08/20/16 at 21:00 Docusate Sodium (Colace) 100 mg BID PO Last administered on 08/23/16 09:20; Admin Dose 100 MG; Start 08/20/16 at 10:30 Magnesium Hydroxide (Milk Of Mag) 30 ml DAILY PRN PO CONSTIPATION Last administered on 08/23/16 06:12; Admin Dose 30 ML; Start 08/20/16 at 10:00 Furosemide (Lasix) 40 mg DAILY PO Last administered on 08/23/16 09:21; Admin Dose 40 MG; Start 08/22/16 at 09:00 Nifedipine (Procardia Xl) 60 mg DAILY PO Last administered on 08/23/16 09:21; Admin Dose 60 MG; Start 08/22/16 at 09:00 Clonidine (Catapres) 0.1 mg Q6H PRN PO SBP>150 mm hg ; Start 08/21/16 at 11:00 Ciprofloxacin (Cipro) 500 mg BID@06,18 PO Last administered on 08/23/16 06:12 ; Admin Dose 500 MG; Start 08/22/16 at 18:00 MCKAYLA HANNAH NP Aug 23, 2016 12:14
--- NOTE | 2016-08-23 12:16 | CONS ---
Date/Time of Note Date/Time of Note DATE: 08/23/16 TIME: 12:14 Assessment/Plan Assessment/Plan Additional Assessment/Plan 1. Acute kidney injury on chronic kidney disease secondary to acute tubular necrosis from sepsis. 2. Sepsis with bacteremia, likely secondary to urinary tract infection. 3. Urinary tract infection with urine culture growing Escherichia coli. 4. 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 5. History of hypertension. 6. History of diabetes mellitus. PLAN: Cr slowly improving headache improved after BP control d/alex spironolactone and Hydralazine, continue lasix 40mg po daily and Procardia XL 60 mg Po daily Clonidine prn SBP>150 mm hg will follow up Consultation Date/Type/Reason Admit Date/Time Aug 17, 2016 at 11:23 Initial Consult Date 08/20/2016 Type of Consultation: NEPHROLOGY Reason for Consultation KENDRA Referring Provider: SHELDON RIVERA MD 24 HR Interval Summary Free Text/Dictation headache improved with BP control, now BP in 140-150s Exam/Review of Systems Vital Signs Vitals Vital Signs Date Time Temp Pulse Resp B/P Pulse Ox O2 Delivery O2 Flow Rate FiO2 08/23/16 07:06 97.7 78 20 139/66 100 08/19/16 16:32 Room Air Intake and Output 08/22/16 08/22/16 08/23/16 14:59 22:59 06:59 Intake Total 2220 ml 240 ml Output Total 1650 ml Balance 570 ml 240 ml Exam GENERAL: Awake, alert, in no distress. HEENT: Normal. Oropharynx clear. NECK: Supple, no JVD, no lymphadenopathy. LUNGS: Clear to auscultation. No crackles, no wheezes. HEART: S1, S2, with regular rhythm, no murmur. ABDOMEN: Soft, nontender, nondistended. Bowel sounds are present. EXTREMITIES: No clubbing, cyanosis, or edema. NEUROLOGICAL: Nonfocal, intact. PSYCHIATRIC: Appropriate affect and mood. Results Result Diagram: 08/23/16 0500 08/23/16 0500 Results 24 hrs Laboratory Tests Test 08/22/16 17:23 08/22/16 21:09 08/23/16 02:30 08/23/16 05:00 Bedside Glucose 171 188 138 Anion Gap 16 Basophils # 0.0 Basophils % 0.2 Blood Morphology Comment Blood Urea Nitrogen 26 H Calcium Level 9.2 Carbon Dioxide Level 30 Chloride Level 99 Creatinine 1.25 H Eosinophils # 0.2 Eosinophils % 1.7 Glucose Level 165 Hematocrit 29.9 L Hemoglobin 10.2 L Lymphocytes # 2.1 Lymphocytes % 23.1 Mean Corpuscular Hemoglobin 31.5 Mean Corpuscular Hemoglobin Concent 34.2 Mean Corpuscular Volume 92.3 Mean Platelet Volume 7.2 L Monocytes # 0.7 Monocytes % 7.3 Neutrophils # 6.2 Neutrophils % 67.7 Nucleated Red Blood Cells # 0.0 Nucleated Red Blood Cells % 0.0 Platelet Count 393 Potassium Level 4.6 Red Blood Count 3.24 L Red Cell Distribution Width 12.5 Sodium Level 140 White Blood Count 9.2 Test 08/23/16 07:57 08/23/16 11:42 Bedside Glucose 151 202 Medications Medications Current Medications Ondansetron HCl (Zofran Inj) 4 mg Q6H PRN IV NAUSEA AND/OR VOMITING Last administered on 08/17/16 08:51; Admin Dose 4 MG; Start 08/15/16 at 18:30 Morphine Sulfate (morphine) 2 mg Q4H PRN IV SEVERE PAIN LEVEL 7-10 Last administered on 08/18/16 08:56; Admin Dose 2 MG; Start 08/15/16 at 18:30 Amiodarone HCl (Cordarone) 200 mg DAILY PO Last administered on 08/23/16 09:21 ; Admin Dose 200 MG; Start 08/16/16 at 09:00 Apixaban (Eliquis) 5 mg BID PO Last administered on 08/23/16 09:22; Admin Dose 5 MG; Start 08/15/16 at 21:00 Atorvastatin Calcium (Lipitor) 20 mg HS PO Last administered on 08/22/16 21:06 ; Admin Dose 20 MG; Start 08/15/16 at 21:00 Fluticasone Propionate (Flonase 0.05% Nasal) 1 spray BID NASAL Last administered on 08/23/16 09:20; Admin Dose 1 SPRAY; Start 08/15/16 at 21:00 Diagnostic Test (Pha) (Accucheck) 1 ea 02 XX Last administered on 08/23/16 02: 36; Admin Dose 1 EA; Start 08/16/16 at 02:00 Miscellaneous Information 1 ea NOTE XX ; Start 08/15/16 at 19:00 Glucose (Glutose) 15 gm Q15M PRN PO DECREASED GLUCOSE; Start 08/15/16 at 19:00 Glucose (Glutose) 22.5 gm Q15M PRN PO DECREASED GLUCOSE; Start 08/15/16 at 19:00 Dextrose (D50w Syringe) 25 ml Q15M PRN IV DECREASED GLUCOSE; Start 08/15/16 at 19:00 Dextrose (D50w Syringe) 50 ml Q15M PRN IV DECREASED GLUCOSE; Start 08/15/16 at 19:00 Glucagon (Glucagen) 1 mg Q15M PRN IM DECREASED GLUCOSE; Start 08/15/16 at 19:00 Glucose (Glutose) 15 gm Q15M PRN BUCCAL DECREASED GLUCOSE; Start 08/15/16 at 19: 00 Guaifenesin/ Dextromethorphan (Robitussin Dm Liquid Cup) 10 ml Q4H PRN PO cough Last administered on 08/18/16 03:31; Admin Dose 10 ML; Start 08/16/16 at 02 :00 Acetaminophen (Tylenol Tab) 650 mg Q4H PRN PO PAIN AND OR ELEVATED TEMP Last administered on 08/21/16 05:33; Admin Dose 650 MG; Start 08/16/16 at 17:30 Bisacodyl (Dulcolax Supp) 10 mg DAILY PRN [place] CONSTIPATION Last administered on 08/20/16 15:15; Admin Dose 10 MG; Start 08/16/16 at 17:30 Lisinopril (Zestril) 20 mg BID PO Last administered on 08/23/16 09:21; Admin Dose 20 MG; Start 08/17/16 at 22:30 Senna (Senokot) 2 tab BID PRN PO CONSTIPATION Last administered on 08/22/16 13 :49; Admin Dose 2 TAB; Start 08/18/16 at 16:00 Pantoprazole (Protonix Tab) 40 mg DAILY@06 PO Last administered on 08/23/16 06 :12; Admin Dose 40 MG; Start 08/20/16 at 06:00 Insulin Glargine (Lantus) 24 unit HS SC Last administered on 08/22/16 21:13; Admin Dose 24 UNIT; Start 08/20/16 at 21:00 Docusate Sodium (Colace) 100 mg BID PO Last administered on 08/23/16 09:20; Admin Dose 100 MG; Start 08/20/16 at 10:30 Magnesium Hydroxide (Milk Of Mag) 30 ml DAILY PRN PO CONSTIPATION Last administered on 08/23/16 06:12; Admin Dose 30 ML; Start 08/20/16 at 10:00 Furosemide (Lasix) 40 mg DAILY PO Last administered on 08/23/16 09:21; Admin Dose 40 MG; Start 08/22/16 at 09:00 Nifedipine (Procardia Xl) 60 mg DAILY PO Last administered on 08/23/16 09:21; Admin Dose 60 MG; Start 08/22/16 at 09:00 Clonidine (Catapres) 0.1 mg Q6H PRN PO SBP>150 mm hg ; Start 08/21/16 at 11:00 Ciprofloxacin (Cipro) 500 mg BID@,18 PO Last administered on 08/23/16 06:12 ; Admin Dose 500 MG; Start 08/22/16 at 18:00 FRAN QUINTERO MD Aug 23, 2016 12:16
[2016-08-23] MEDS: SENNA TAB PO PRN (15:41)
--- NOTE | 2016-08-23 16:24 | PN ---
Date/Time of Note Date/Time of Note DATE: 08/23/16 TIME: 16:23 Assessment/Plan VTE Prophylaxis VTE Prophylaxis Intervention: SCD's Lines/Catheters IV Catheter Type (from [facility]): [facility] Urinary Cath still in place: No Assessment/Plan Chief Complaint/Hosp Course ASSESSMENT AND PLAN - Acute cystitis. Continue antibiotics per ID. - Sepsis with fever, leukocytosis, and elevated lactic acid and E. coli bacteremia. Dr. Mena is following in infection disease consultation. - Gastritis per EGD. Continue Protonix. - Diabetes mellitus type 2. Hemoglobin A1c is 9.2. Continue Lantus not pre- meal NovoLog and NovoLog per mild algorithm sliding scale. - Congestive heart failure with ejection fraction of 35%. Continue patient on Lasix and Aldactone. - Paroxysmal atrial fibrillation. Continue Eliquis. - Hypertension. Continue lisinopril. - Acute kidney injury. Renal ultrasound is reviewed . Monitor BUN and creatinine. - Nausea and vomiting, resolved, continue Zofran p.r.n. for nausea and morphine p.r.n. for pain. Dr. Kumar is following in gastroenterology consultation. Continue Protonix for peptic ulcer disease prophylaxis. Further recommendations based on clinical course. Plan of care discussed with Dr. Benítez. Problems: Subjective 24 Hr Interval Summary Free Text/Dictation Patient's blood pressure is better controlled, remains afebrile denies nausea vomiting. Exam/Review of Systems Vital Signs Vitals Vital Signs Date Time Temp Pulse Resp B/P Pulse Ox O2 Delivery O2 Flow Rate FiO2 08/23/16 07:06 97.7 78 20 139/66 100 08/19/16 16:32 Room Air Intake and Output 08/22/16 08/22/16 08/23/16 15:00 23:00 07:00 Intake Total 2220 ml 240 ml Output Total 1650 ml Balance 570 ml 240 ml Exam GENERAL: Well-developed, well-nourished female, currently awake, alert. HEENT: Head is atraumatic, normocephalic. PERRLA. NECK: Supple, no cervical lymphadenopathy, no thyromegaly. CHEST: Lungs clear bilaterally. There is no rhonchi, wheezes, rales noted. CARDIOVASCULAR: Normal sinus rhythm. No murmurs, gallops, clicks, rubs noted. GASTROINTESTINAL: Abdomen is protuberant, soft, nondistended, nontender. Bowel sounds present. EXTREMITIES: There is no edema, clubbing, cyanosis. SKIN: No rash, petechiae noted. NEUROLOGIC: Patient is awake, alert, and oriented x4. Results Result Diagram: 08/23/16 0500 08/23/16 0500 Results 24 hrs Laboratory Tests Test 08/22/16 17:23 08/22/16 21:09 08/23/16 02:30 08/23/16 05:00 Bedside Glucose 171 188 138 Anion Gap 16 Basophils # 0.0 Basophils % 0.2 Blood Morphology Comment Blood Urea Nitrogen 26 H Calcium Level 9.2 Carbon Dioxide Level 30 Chloride Level 99 Creatinine 1.25 H Eosinophils # 0.2 Eosinophils % 1.7 Glucose Level 165 Hematocrit 29.9 L Hemoglobin 10.2 L Lymphocytes # 2.1 Lymphocytes % 23.1 Mean Corpuscular Hemoglobin 31.5 Mean Corpuscular Hemoglobin Concent 34.2 Mean Corpuscular Volume 92.3 Mean Platelet Volume 7.2 L Monocytes # 0.7 Monocytes % 7.3 Neutrophils # 6.2 Neutrophils % 67.7 Nucleated Red Blood Cells # 0.0 Nucleated Red Blood Cells % 0.0 Platelet Count 393 Potassium Level 4.6 Red Blood Count 3.24 L Red Cell Distribution Width 12.5 Sodium Level 140 White Blood Count 9.2 Test 08/23/16 07:57 08/23/16 11:42 Bedside Glucose 151 202 Medications Medications Current Medications Ondansetron HCl (Zofran Inj) 4 mg Q6H PRN IV NAUSEA AND/OR VOMITING Last administered on 08/17/16 08:51; Admin Dose 4 MG; Start 08/15/16 at 18:30 Morphine Sulfate (morphine) 2 mg Q4H PRN IV SEVERE PAIN LEVEL 7-10 Last administered on 08/18/16 08:56; Admin Dose 2 MG; Start 08/15/16 at 18:30 Amiodarone HCl (Cordarone) 200 mg DAILY PO Last administered on 08/23/16 09:21 ; Admin Dose 200 MG; Start 08/16/16 at 09:00 Apixaban (Eliquis) 5 mg BID PO Last administered on 08/23/16 09:22; Admin Dose 5 MG; Start 08/15/16 at 21:00 Atorvastatin Calcium (Lipitor) 20 mg HS PO Last administered on 08/22/16 21:06 ; Admin Dose 20 MG; Start 08/15/16 at 21:00 Fluticasone Propionate (Flonase 0.05% Nasal) 1 spray BID NASAL Last administered on 08/23/16 09:20; Admin Dose 1 SPRAY; Start 08/15/16 at 21:00 Diagnostic Test (Pha) (Accucheck) 1 ea 02 XX Last administered on 08/23/16 02: 36; Admin Dose 1 EA; Start 08/16/16 at 02:00 Miscellaneous Information 1 ea NOTE XX ; Start 08/15/16 at 19:00 Glucose (Glutose) 15 gm Q15M PRN PO DECREASED GLUCOSE; Start 08/15/16 at 19:00 Glucose (Glutose) 22.5 gm Q15M PRN PO DECREASED GLUCOSE; Start 08/15/16 at 19:00 Dextrose (D50w Syringe) 25 ml Q15M PRN IV DECREASED GLUCOSE; Start 08/15/16 at 19:00 Dextrose (D50w Syringe) 50 ml Q15M PRN IV DECREASED GLUCOSE; Start 08/15/16 at 19:00 Glucagon (Glucagen) 1 mg Q15M PRN IM DECREASED GLUCOSE; Start 08/15/16 at 19:00 Glucose (Glutose) 15 gm Q15M PRN BUCCAL DECREASED GLUCOSE; Start 08/15/16 at 19: 00 Guaifenesin/ Dextromethorphan (Robitussin Dm Liquid Cup) 10 ml Q4H PRN PO cough Last administered on 08/18/16 03:31; Admin Dose 10 ML; Start 08/16/16 at 02 :00 Acetaminophen (Tylenol Tab) 650 mg Q4H PRN PO PAIN AND OR ELEVATED TEMP Last administered on 08/21/16 05:33; Admin Dose 650 MG; Start 08/16/16 at 17:30 Bisacodyl (Dulcolax Supp) 10 mg DAILY PRN [place] CONSTIPATION Last administered on 08/20/16 15:15; Admin Dose 10 MG; Start 08/16/16 at 17:30 Lisinopril (Zestril) 20 mg BID PO Last administered on 08/23/16 09:21; Admin Dose 20 MG; Start 08/17/16 at 22:30 Senna (Senokot) 2 tab BID PRN PO CONSTIPATION Last administered on 08/23/16 15 :41; Admin Dose 2 TAB; Start 08/18/16 at 16:00 Pantoprazole (Protonix Tab) 40 mg DAILY@06 PO Last administered on 08/23/16 06 :12; Admin Dose 40 MG; Start 08/20/16 at 06:00 Insulin Glargine (Lantus) 24 unit HS SC Last administered on 08/22/16 21:13; Admin Dose 24 UNIT; Start 08/20/16 at 21:00 Docusate Sodium (Colace) 100 mg BID PO Last administered on 08/23/16 09:20; Admin Dose 100 MG; Start 08/20/16 at 10:30 Magnesium Hydroxide (Milk Of Mag) 30 ml DAILY PRN PO CONSTIPATION Last administered on 08/23/16 06:12; Admin Dose 30 ML; Start 08/20/16 at 10:00 Furosemide (Lasix) 40 mg DAILY PO Last administered on 08/23/16 09:21; Admin Dose 40 MG; Start 08/22/16 at 09:00 Nifedipine (Procardia Xl) 60 mg DAILY PO Last administered on 08/23/16 09:21; Admin Dose 60 MG; Start 08/22/16 at 09:00 Clonidine (Catapres) 0.1 mg Q6H PRN PO SBP>150 mm hg ; Start 08/21/16 at 11:00 Ciprofloxacin (Cipro) 500 mg BID@,18 PO Last administered on 08/23/16 06:12 ; Admin Dose 500 MG; Start 08/22/16 at 18:00 ANUSHA DIAZ Aug 23, 2016 16:24
--- NOTE | 2016-08-23 17:48 | PN ---
DATE: 08/23/2016 ADDENDUM The patient was seen and chart reviewed. The patient reported that she does not want to take Eliqui s. The patient has history of paroxysmal ventricular fibrillation/flutter with EF of 35%. The risk for embolic stroke explained to her, but she still does not want to take Eliquis. Meanwhile, the p atient's medications reviewed. Will discontinue her Procardia and will start beta-olya and optim ize it as tolerated. Meanwhile, we will continue PHILLIP inhibitor. After 24 hours, we will start maura ent on aspirin. Dictated By: SHELDON MIGUEL/NTS Conf#: [id number] DID#: [id number]
[2016-08-23 19:44] VITALS: BP 134/65; RESP 20
[2016-08-23] MEDS: ATORVASTATIN 20 MG TAB PO SCH (21:14)
[2016-08-23] MEDS: INSULIN GLARGINE [LANtus] 3 ML PEN SC SCH (21:18)
[2016-08-24] VITALS (11 sets, daily range): BP systolic 142–206; BP diastolic 67–97; PULSE 78–92; RESP 16
[2016-08-24] MEDS: ACCUCHECK XX SCH (01:11)
[2016-08-24] MEDS: PANTOPRAZOLE (EC) 40 MG TAB PO SCH (05:47)
[2016-08-24] MEDS: CIPROFLOXACIN 500 MG TAB PO SCH ×2 (05:48→17:49)
[2016-08-24 05:56] LABS: BASOPHILS % 0.2 % (0.0-2.0); EOSINOPHILS # 0.1 10^3/ul (0.0-0.5); EOSINOPHILS % 1.4 % (0.0-7.0); HEMATOCRIT 29.8 % (37.0-47.0); HEMOGLOBIN 10.3 g/dl (12.0-16.0); LYMPHOCYTES # 1.8 10^3/ul (0.8-2.9); LYMPHOCYTES % 21.8 % (15.0-51.0); MEAN CORPUSCULAR HEMOGLOBIN 31.5 pg (29.0-33.0); MEAN CORPUSCULAR HGB CONC 34.5 g/dl (32.0-37.0); MEAN CORPUSCULAR VOLUME 91.1 fl (82.0-101.0); MEAN PLATELET VOLUME 7.1 fl (7.4-10.4); MONOCYTE # 0.5 10^3/ul (0.3-0.9); MONOCYTES % 6.1 % (0.0-11.0); NEUTROPHIL # 5.7 10^3/ul (1.6-7.5); NEUTROPHILS % 70.5 % (39.0-77.0); PLATELET COUNT 383 10^3/UL (140-440); RED BLOOD COUNT 3.27 10^6/ul (4.20-5.40); RED CELL DISTRIBUTION WIDTH 12.5 % (11.5-14.5); UNCORRECTED WBC 8.1 10^3/ul (4.8-10.8); WHITE BLOOD COUNT 8.1 10^3/ul (4.8-10.8)
[2016-08-24 06:13] LABS: INR 1.06; PROTIME 13.8 Sec (12.2-14.2); PT RATIO 1.1
[2016-08-24 06:14] LABS: PARTIAL THROMBOPLASTIN TIME 30.3 Sec (25.0-35.0)
[2016-08-24 06:19] LABS: CONDITION 1
[2016-08-24 06:33] LABS: POTASSIUM 4.8 mmol/L (3.5-5.1)
[2016-08-24 06:35] LABS: CREATININE 1.18 mg/dl (0.44-1.00)
[2016-08-24 06:36] LABS: CALCIUM 9.3 mg/dl (8.4-10.2)
[2016-08-24] MEDS: AMIODARONE 200 MG TAB PO SCH (08:29)
[2016-08-24] MEDS: FUROSEMIDE 40 MG TAB PO SCH (08:30)
[2016-08-24] MEDS: DOCUSATE SODIUM 100 MG CAP PO SCH ×2 (08:30→20:29)
[2016-08-24] MEDS: LISINOPRIL 20 MG TAB PO SCH ×2 (08:30→20:30)
[2016-08-24] MEDS: FLUTICASONE 0.05% 16 GM NAS SPRAY NASAL SCH ×2 (08:30→20:29)
[2016-08-24] MEDS: INSULIN ASPART [NOVOLOG] 3 ML PEN SC SCH ×7 (08:36→20:36)
[2016-08-24] MEDS: MAGNESIUM HYDROXIDE 30ML CUP PO PRN (08:41)
--- NOTE | 2016-08-24 09:25 | CONS ---
Date/Time of Note Date/Time of Note DATE: 08/24/16 TIME: 09:24 Assessment/Plan Assessment/Plan Additional Assessment/Plan 1. Acute kidney injury on chronic kidney disease secondary to acute tubular necrosis from sepsis. 2. Sepsis with bacteremia, likely secondary to urinary tract infection. 3. Urinary tract infection with urine culture growing Escherichia coli. 4. 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 5. History of hypertension. 6. History of diabetes mellitus. PLAN: Cr slowly improving headache improved after BP control d/alex spironolactone and Hydralazine, continue lasix 40mg po daily and Procardia XL 60 mg Po daily Clonidine prn SBP>150 mm hg will follow up Consultation Date/Type/Reason Admit Date/Time Aug 17, 2016 at 11:23 Initial Consult Date 08/20/2016 Type of Consultation: NEPHROLOGY Referring Provider: SHELDON RIVERA MD 24 HR Interval Summary Free Text/Dictation no Headhace, BP controlled, Cr better Exam/Review of Systems Vital Signs Vitals Vital Signs Date Time Temp Pulse Resp B/P Pulse Ox O2 Delivery O2 Flow Rate FiO2 08/24/16 07:23 98.6 79 16 142/71 100 Intake and Output 08/23/16 08/23/16 08/24/16 14:59 22:59 06:59 Intake Total 1600 ml 340 ml Balance 1600 ml 340 ml Exam GENERAL: Awake, alert, in no distress. HEENT: Normal. Oropharynx clear. NECK: Supple, no JVD, no lymphadenopathy. LUNGS: Clear to auscultation. No crackles, no wheezes. HEART: S1, S2, with regular rhythm, no murmur. ABDOMEN: Soft, nontender, nondistended. Bowel sounds are present. EXTREMITIES: No clubbing, cyanosis, or edema. NEUROLOGICAL: Nonfocal, intact. PSYCHIATRIC: Appropriate affect and mood. Results Result Diagram: 08/24/1615 08/24/1615 Results 24 hrs Laboratory Tests Test 08/23/16 11:42 08/23/16 17:07 08/23/16 20:29 08/24/16 05:15 Bedside Glucose 202 250 H 180 Activated Partial Thromboplast Time 30.3 Anion Gap 16 Basophils # 0.0 Basophils % 0.2 Blood Morphology Comment Blood Urea Nitrogen 29 H Calcium Level 9.3 Carbon Dioxide Level 27 Chloride Level 101 Creatinine 1.18 H Eosinophils # 0.1 Eosinophils % 1.4 Glucose Level 162 Hematocrit 29.8 L Hemoglobin 10.3 L INR International Normalized Ratio 1.06 Lymphocytes # 1.8 Lymphocytes % 21.8 Mean Corpuscular Hemoglobin 31.5 Mean Corpuscular Hemoglobin Concent 34.5 Mean Corpuscular Volume 91.1 Mean Platelet Volume 7.1 L Monocytes # 0.5 Monocytes % 6.1 Neutrophils # 5.7 Neutrophils % 70.5 Nucleated Red Blood Cells # 0.0 Nucleated Red Blood Cells % 0.0 Platelet Count 383 Potassium Level 4.8 Prothrombin Time 13.8 Prothrombin Time Ratio 1.1 Red Blood Count 3.27 L Red Cell Distribution Width 12.5 Sodium Level 139 White Blood Count 8.1 Test 08/24/16 07:45 Bedside Glucose 156 Medications Medications Current Medications Ondansetron HCl (Zofran Inj) 4 mg Q6H PRN IV NAUSEA AND/OR VOMITING Last administered on 08/17/16 08:51; Admin Dose 4 MG; Start 08/15/16 at 18:30 Morphine Sulfate (morphine) 2 mg Q4H PRN IV SEVERE PAIN LEVEL 7-10 Last administered on 08/18/16 08:56; Admin Dose 2 MG; Start 08/15/16 at 18:30 Amiodarone HCl (Cordarone) 200 mg DAILY PO Last administered on 08/24/16 08:29 ; Admin Dose 200 MG; Start 08/16/16 at 09:00 Atorvastatin Calcium (Lipitor) 20 mg HS PO Last administered on 08/23/16 21:14 ; Admin Dose 20 MG; Start 08/15/16 at 21:00 Fluticasone Propionate (Flonase 0.05% Nasal) 1 spray BID NASAL Last administered on 08/24/16 08:30; Admin Dose 1 SPRAY; Start 08/15/16 at 21:00 Diagnostic Test (Pha) (Accucheck) 1 ea 02 XX Last administered on 08/23/16 02: 36; Admin Dose 1 EA; Start 08/16/16 at 02:00 Miscellaneous Information 1 ea NOTE XX ; Start 08/15/16 at 19:00 Glucose (Glutose) 15 gm Q15M PRN PO DECREASED GLUCOSE; Start 08/15/16 at 19:00 Glucose (Glutose) 22.5 gm Q15M PRN PO DECREASED GLUCOSE; Start 08/15/16 at 19:00 Dextrose (D50w Syringe) 25 ml Q15M PRN IV DECREASED GLUCOSE; Start 08/15/16 at 19:00 Dextrose (D50w Syringe) 50 ml Q15M PRN IV DECREASED GLUCOSE; Start 08/15/16 at 19:00 Glucagon (Glucagen) 1 mg Q15M PRN IM DECREASED GLUCOSE; Start 08/15/16 at 19:00 Glucose (Glutose) 15 gm Q15M PRN BUCCAL DECREASED GLUCOSE; Start 08/15/16 at 19: 00 Guaifenesin/ Dextromethorphan (Robitussin Dm Liquid Cup) 10 ml Q4H PRN PO cough Last administered on 08/18/16 03:31; Admin Dose 10 ML; Start 08/16/16 at 02 :00 Acetaminophen (Tylenol Tab) 650 mg Q4H PRN PO PAIN AND OR ELEVATED TEMP Last administered on 08/21/16 05:33; Admin Dose 650 MG; Start 08/16/16 at 17:30 Bisacodyl (Dulcolax Supp) 10 mg DAILY PRN [place] CONSTIPATION Last administered on 08/20/16 15:15; Admin Dose 10 MG; Start 08/16/16 at 17:30 Lisinopril (Zestril) 20 mg BID PO Last administered on 08/24/16 08:30; Admin Dose 20 MG; Start 08/17/16 at 22:30 Senna (Senokot) 2 tab BID PRN PO CONSTIPATION Last administered on 08/23/16 15 :41; Admin Dose 2 TAB; Start 08/18/16 at 16:00 Pantoprazole (Protonix Tab) 40 mg DAILY@06 PO Last administered on 08/24/16 05 :47; Admin Dose 40 MG; Start 08/20/16 at 06:00 Insulin Glargine (Lantus) 24 unit HS SC Last administered on 08/23/16 21:18; Admin Dose 24 UNIT; Start 08/20/16 at 21:00 Docusate Sodium (Colace) 100 mg BID PO Last administered on 08/24/16 08:30; Admin Dose 100 MG; Start 08/20/16 at 10:30 Magnesium Hydroxide (Milk Of Mag) 30 ml DAILY PRN PO CONSTIPATION Last administered on 08/24/16 08:41; Admin Dose 30 ML; Start 08/20/16 at 10:00 Furosemide (Lasix) 40 mg DAILY PO Last administered on 08/24/16 08:30; Admin Dose 40 MG; Start 08/22/16 at 09:00 Clonidine (Catapres) 0.1 mg Q6H PRN PO SBP>150 mm hg ; Start 08/21/16 at 11:00 Ciprofloxacin (Cipro) 500 mg BID@,18 PO Last administered on 08/24/16 05:48 ; Admin Dose 500 MG; Start 08/22/16 at 18:00 Aspirin (Halfprin) 81 mg DAILY PO ; Start 08/25/16 at 09:00 FRAN QUINTERO MD Aug 24, 2016 09:25
--- NOTE | 2016-08-24 12:38 | CONS ---
Date/Time of Note Date/Time of Note DATE: 08/24/16 TIME: 12:37 Assessment/Plan Assessment/Plan Chief Complaint/Hosp Course SUBJECTIVE: No acute events overnight. No fevers. The patient is alert, feels good. MICROBIOLOGY: Repeat blood cultures pending. PHYSICAL EXAMINATION: GENERAL: Well-developed middle-aged woman who is alert, in no distress. HEENT: Head atraumatic, normocephalic. Sclerae anicteric. Buccal mucosa pink. NECK: Supple, trachea midline. CHEST: Rise symmetrical. Breath sounds diminished to bases. HEART: S1, S2. ABDOMEN: Soft, bowel tones present. EXTREMITIES: Without cyanosis or edema. ASSESSMENT: 1. Status post systemic inflammatory response syndrome. 2. Escherichia coli urinary tract infection with bacteremia. 3. Hypertension. 4. Diabetes. 5. Acute kidney injury. PLAN: The patient is doing better. S/p Rocephin, now on oral ciprofloxacin to complete 2 weeks antibiotics for bacteremia. Repeat bld cx negative, ok dc on PO Cipro for 6 more days DW pt Problems: Consultation Date/Type/Reason Admit Date/Time Aug 17, 2016 at 11:23 Type of Consultation: id Referring Provider: SHELDON RIVERA MD Exam/Review of Systems Vital Signs Vitals Vital Signs Date Time Temp Pulse Resp B/P Pulse Ox O2 Delivery O2 Flow Rate FiO2 08/24/16 07:23 98.6 79 16 142/71 100 Intake and Output 08/23/16 08/23/16 08/24/16 15:00 23:00 07:00 Intake Total 1600 ml 340 ml Balance 1600 ml 340 ml Results Result Diagram: 08/24/16 0515 08/24/16 0515 Results 24 hrs Laboratory Tests Test 08/23/16 17:07 08/23/16 20:29 08/24/16 05:15 08/24/16 07:45 Bedside Glucose 250 H 180 156 Activated Partial Thromboplast Time 30.3 Anion Gap 16 Basophils # 0.0 Basophils % 0.2 Blood Morphology Comment Blood Urea Nitrogen 29 H Calcium Level 9.3 Carbon Dioxide Level 27 Chloride Level 101 Creatinine 1.18 H Eosinophils # 0.1 Eosinophils % 1.4 Glucose Level 162 Hematocrit 29.8 L Hemoglobin 10.3 L INR International Normalized Ratio 1.06 Lymphocytes # 1.8 Lymphocytes % 21.8 Mean Corpuscular Hemoglobin 31.5 Mean Corpuscular Hemoglobin Concent 34.5 Mean Corpuscular Volume 91.1 Mean Platelet Volume 7.1 L Monocytes # 0.5 Monocytes % 6.1 Neutrophils # 5.7 Neutrophils % 70.5 Nucleated Red Blood Cells # 0.0 Nucleated Red Blood Cells % 0.0 Platelet Count 383 Potassium Level 4.8 Prothrombin Time 13.8 Prothrombin Time Ratio 1.1 Red Blood Count 3.27 L Red Cell Distribution Width 12.5 Sodium Level 139 White Blood Count 8.1 Test 08/24/16 12:03 Bedside Glucose 148 Medications Medications Current Medications Ondansetron HCl (Zofran Inj) 4 mg Q6H PRN IV NAUSEA AND/OR VOMITING Last administered on 08/17/16 08:51; Admin Dose 4 MG; Start 08/15/16 at 18:30 Morphine Sulfate (morphine) 2 mg Q4H PRN IV SEVERE PAIN LEVEL 7-10 Last administered on 08/18/16 08:56; Admin Dose 2 MG; Start 08/15/16 at 18:30 Amiodarone HCl (Cordarone) 200 mg DAILY PO Last administered on 08/24/16 08:29 ; Admin Dose 200 MG; Start 08/16/16 at 09:00 Atorvastatin Calcium (Lipitor) 20 mg HS PO Last administered on 08/23/16 21:14 ; Admin Dose 20 MG; Start 08/15/16 at 21:00 Fluticasone Propionate (Flonase 0.05% Nasal) 1 spray BID NASAL Last administered on 08/24/16 08:30; Admin Dose 1 SPRAY; Start 08/15/16 at 21:00 Diagnostic Test (Pha) (Accucheck) 1 ea 02 XX Last administered on 08/23/16 02: 36; Admin Dose 1 EA; Start 08/16/16 at 02:00 Miscellaneous Information 1 ea NOTE XX ; Start 08/15/16 at 19:00 Glucose (Glutose) 15 gm Q15M PRN PO DECREASED GLUCOSE; Start 08/15/16 at 19:00 Glucose (Glutose) 22.5 gm Q15M PRN PO DECREASED GLUCOSE; Start 08/15/16 at 19:00 Dextrose (D50w Syringe) 25 ml Q15M PRN IV DECREASED GLUCOSE; Start 08/15/16 at 19:00 Dextrose (D50w Syringe) 50 ml Q15M PRN IV DECREASED GLUCOSE; Start 08/15/16 at 19:00 Glucagon (Glucagen) 1 mg Q15M PRN IM DECREASED GLUCOSE; Start 08/15/16 at 19:00 Glucose (Glutose) 15 gm Q15M PRN BUCCAL DECREASED GLUCOSE; Start 08/15/16 at 19: 00 Guaifenesin/ Dextromethorphan (Robitussin Dm Liquid Cup) 10 ml Q4H PRN PO cough Last administered on 08/18/16 03:31; Admin Dose 10 ML; Start 08/16/16 at 02 :00 Acetaminophen (Tylenol Tab) 650 mg Q4H PRN PO PAIN AND OR ELEVATED TEMP Last administered on 08/21/16 05:33; Admin Dose 650 MG; Start 08/16/16 at 17:30 Bisacodyl (Dulcolax Supp) 10 mg DAILY PRN OR CONSTIPATION Last administered on 08/20/16 15:15; Admin Dose 10 MG; Start 08/16/16 at 17:30 Lisinopril (Zestril) 20 mg BID PO Last administered on 08/24/16 08:30; Admin Dose 20 MG; Start 08/17/16 at 22:30 Senna (Senokot) 2 tab BID PRN PO CONSTIPATION Last administered on 08/23/16 15 :41; Admin Dose 2 TAB; Start 08/18/16 at 16:00 Pantoprazole (Protonix Tab) 40 mg DAILY@06 PO Last administered on 08/24/16 05 :47; Admin Dose 40 MG; Start 08/20/16 at 06:00 Insulin Glargine (Lantus) 24 unit HS SC Last administered on 08/23/16 21:18; Admin Dose 24 UNIT; Start 08/20/16 at 21:00 Docusate Sodium (Colace) 100 mg BID PO Last administered on 08/24/16 08:30; Admin Dose 100 MG; Start 08/20/16 at 10:30 Magnesium Hydroxide (Milk Of Mag) 30 ml DAILY PRN PO CONSTIPATION Last administered on 08/24/16 08:41; Admin Dose 30 ML; Start 08/20/16 at 10:00 Furosemide (Lasix) 40 mg DAILY PO Last administered on 08/24/16 08:30; Admin Dose 40 MG; Start 08/22/16 at 09:00 Clonidine (Catapres) 0.1 mg Q6H PRN PO SBP>150 mm hg ; Start 08/21/16 at 11:00 Ciprofloxacin (Cipro) 500 mg BID@,18 PO Last administered on 08/24/16t 05:48 ; Admin Dose 500 MG; Start 08/22/16 at 18:00 Aspirin (Halfprin) 81 mg DAILY PO ; Start 08/25/16 at 09:00 MCKAYLA HANNAH NP Aug 24, 2016 12:38
[2016-08-24] MEDS ORDERED: CIPR500T4 PO (15:12)
[2016-08-24] MEDS ORDERED: LISI20TA11 PO (15:12)
[2016-08-24] MEDS ORDERED: LANT3I SC (15:12)
[2016-08-24] MEDS ORDERED: FURO40TA4 PO (15:12)
[2016-08-24] MEDS ORDERED: ASPI-664 PO (15:12)
[2016-08-24] MEDS ORDERED: NOVO3I SC (15:12)
[2016-08-24] MEDS: morphine 2 MG INJ IV PRN (16:09)
--- NOTE | 2016-08-24 16:14 | PN ---
Date/Time of Note Date/Time of Note DATE: 08/24/16 TIME: 16:10 Assessment/Plan VTE Prophylaxis VTE Prophylaxis Intervention: SCD's Lines/Catheters IV Catheter Type (from Nrs): Saline Lock Urinary Cath still in place: No Assessment/Plan Chief Complaint/Hosp Course ASSESSMENT AND PLAN - Acute cystitis. Continue antibiotics per ID. - Sepsis with fever, leukocytosis, and elevated lactic acid and E. coli bacteremia. Dr. Mena is following in infection disease consultation. - Gastritis per EGD. Continue Protonix. - Diabetes mellitus type 2. Hemoglobin A1c is 9.2. Continue Lantus not pre- meal NovoLog and NovoLog per mild algorithm sliding scale. - Congestive heart failure with ejection fraction of 35%. Continue patient on Lasix and Aldactone. - Paroxysmal atrial fibrillation. Continue Eliquis. - Hypertension. Continue lisinopril. - Acute kidney injury. Renal ultrasound is reviewed . Monitor BUN and creatinine. - Nausea and vomiting, resolved, continue Zofran p.r.n. for nausea and morphine p.r.n. for pain. Dr. Kumar is following in gastroenterology consultation. Continue Protonix for peptic ulcer disease prophylaxis. Further recommendations based on clinical course. Plan of care discussed with Dr. Benítez. Problems: Subjective 24 Hr Interval Summary Free Text/Dictation Patient was in's feeling well today, was eager to go home, however developed systolic blood pressure about 200 and complains of chest pain, hold discharge and obtain cardiac enzymes every 8 hours 3 and twelve-lead EKG. will ask Dr. Astrid sr to follow patient from cardiology standpoint. Exam/Review of Systems Vital Signs Vitals Vital Signs Date Time Temp Pulse Resp B/P Pulse Ox O2 Delivery O2 Flow Rate FiO2 08/24/16 15:39 87 206/97 08/24/16 07:23 98.6 16 100 Intake and Output 08/23/16 08/23/16 08/24/16 15:00 23:00 07:00 Intake Total 1600 ml 340 ml Balance 1600 ml 340 ml Exam GENERAL: Well-developed, well-nourished female, currently awake, alert. HEENT: Head is atraumatic, normocephalic. PERRLA. NECK: Supple, no cervical lymphadenopathy, no thyromegaly. CHEST: Lungs clear bilaterally. There is no rhonchi, wheezes, rales noted. CARDIOVASCULAR: Normal sinus rhythm. No murmurs, gallops, clicks, rubs noted. GASTROINTESTINAL: Abdomen is protuberant, soft, nondistended, nontender. Bowel sounds present. EXTREMITIES: There is no edema, clubbing, cyanosis. SKIN: No rash, petechiae noted. NEUROLOGIC: Patient is awake, alert, and oriented x4. Results Result Diagram: 08/24/16 0515 08/24/16 0515 Results 24 hrs Laboratory Tests Test 08/23/16 17:07 08/23/16 20:29 08/24/16 05:15 08/24/16 07:45 Bedside Glucose 250 H 180 156 Activated Partial Thromboplast Time 30.3 Anion Gap 16 Basophils # 0.0 Basophils % 0.2 Blood Morphology Comment Blood Urea Nitrogen 29 H Calcium Level 9.3 Carbon Dioxide Level 27 Chloride Level 101 Creatinine 1.18 H Eosinophils # 0.1 Eosinophils % 1.4 Glucose Level 162 Hematocrit 29.8 L Hemoglobin 10.3 L INR International Normalized Ratio 1.06 Lymphocytes # 1.8 Lymphocytes % 21.8 Mean Corpuscular Hemoglobin 31.5 Mean Corpuscular Hemoglobin Concent 34.5 Mean Corpuscular Volume 91.1 Mean Platelet Volume 7.1 L Monocytes # 0.5 Monocytes % 6.1 Neutrophils # 5.7 Neutrophils % 70.5 Nucleated Red Blood Cells # 0.0 Nucleated Red Blood Cells % 0.0 Platelet Count 383 Potassium Level 4.8 Prothrombin Time 13.8 Prothrombin Time Ratio 1.1 Red Blood Count 3.27 L Red Cell Distribution Width 12.5 Sodium Level 139 White Blood Count 8.1 Test 08/24/16 12:03 Bedside Glucose 148 Medications Medications Current Medications Ondansetron HCl (Zofran Inj) 4 mg Q6H PRN IV NAUSEA AND/OR VOMITING Last administered on 08/17/16 08:51; Admin Dose 4 MG; Start 08/15/16 at 18:30 Morphine Sulfate (morphine) 2 mg Q4H PRN IV SEVERE PAIN LEVEL 7-10 Last administered on 08/18/16 08:56; Admin Dose 2 MG; Start 08/15/16 at 18:30 Amiodarone HCl (Cordarone) 200 mg DAILY PO Last administered on 08/24/16 08:29 ; Admin Dose 200 MG; Start 08/16/16 at 09:00 Atorvastatin Calcium (Lipitor) 20 mg HS PO Last administered on 08/23/16 21:14 ; Admin Dose 20 MG; Start 08/15/16 at 21:00 Fluticasone Propionate (Flonase 0.05% Nasal) 1 spray BID NASAL Last administered on 08/24/16 08:30; Admin Dose 1 SPRAY; Start 08/15/16 at 21:00 Diagnostic Test (Pha) (Accucheck) 1 ea 02 XX Last administered on 08/23/16 02: 36; Admin Dose 1 EA; Start 08/16/16 at 02:00 Miscellaneous Information 1 ea NOTE XX ; Start 08/15/16 at 19:00 Glucose (Glutose) 15 gm Q15M PRN PO DECREASED GLUCOSE; Start 08/15/16 at 19:00 Glucose (Glutose) 22.5 gm Q15M PRN PO DECREASED GLUCOSE; Start 08/15/16 at 19:00 Dextrose (D50w Syringe) 25 ml Q15M PRN IV DECREASED GLUCOSE; Start 08/15/16 at 19:00 Dextrose (D50w Syringe) 50 ml Q15M PRN IV DECREASED GLUCOSE; Start 08/15/16 at 19:00 Glucagon (Glucagen) 1 mg Q15M PRN IM DECREASED GLUCOSE; Start 08/15/16 at 19:00 Glucose (Glutose) 15 gm Q15M PRN BUCCAL DECREASED GLUCOSE; Start 08/15/16 at 19: 00 Guaifenesin/ Dextromethorphan (Robitussin Dm Liquid Cup) 10 ml Q4H PRN PO cough Last administered on 08/18/16 03:31; Admin Dose 10 ML; Start 08/16/16 at 02 :00 Acetaminophen (Tylenol Tab) 650 mg Q4H PRN PO PAIN AND OR ELEVATED TEMP Last administered on 08/21/16 05:33; Admin Dose 650 MG; Start 08/16/16 at 17:30 Bisacodyl (Dulcolax Supp) 10 mg DAILY PRN [place] CONSTIPATION Last administered on 08/20/16 15:15; Admin Dose 10 MG; Start 08/16/16 at 17:30 Lisinopril (Zestril) 20 mg BID PO Last administered on 08/24/16 08:30; Admin Dose 20 MG; Start 08/17/16 at 22:30 Senna (Senokot) 2 tab BID PRN PO CONSTIPATION Last administered on 08/23/16 15 :41; Admin Dose 2 TAB; Start 08/18/16 at 16:00 Pantoprazole (Protonix Tab) 40 mg DAILY@06 PO Last administered on 08/24/16 05 :47; Admin Dose 40 MG; Start 08/20/16 at 06:00 Insulin Glargine (Lantus) 24 unit HS SC Last administered on 08/23/16 21:18; Admin Dose 24 UNIT; Start 08/20/16 at 21:00 Docusate Sodium (Colace) 100 mg BID PO Last administered on 08/24/16 08:30; Admin Dose 100 MG; Start 08/20/16 at 10:30 Magnesium Hydroxide (Milk Of Mag) 30 ml DAILY PRN PO CONSTIPATION Last administered on 08/24/16 08:41; Admin Dose 30 ML; Start 08/20/16 at 10:00 Furosemide (Lasix) 40 mg DAILY PO Last administered on 08/24/16 08:30; Admin Dose 40 MG; Start 08/22/16 at 09:00 Clonidine (Catapres) 0.1 mg Q6H PRN PO SBP>150 mm hg Last administered on 15:39; Admin Dose 0.1 MG; Start 08/21/16 at 11:00 Ciprofloxacin (Cipro) 500 mg BID@06,18 PO Last administered on 08/24/16 05:48 ; Admin Dose 500 MG; Start 08/22/16 at 18:00 Aspirin (Halfprin) 81 mg DAILY PO ; Start 08/25/16 at 09:00 ANUSHA DIAZ Aug 24, 2016 16:14
[2016-08-24] MEDS: METOPROLOL 25 MG TAB GTB SCH (17:49)
[2016-08-24] MEDS: ATORVASTATIN 20 MG TAB PO SCH (20:29)
[2016-08-24] MEDS: INSULIN GLARGINE [LANtus] 3 ML PEN SC SCH (20:46)
[2016-08-25] MEDS: ACCUCHECK XX SCH (01:55)
[2016-08-25] MEDS: PANTOPRAZOLE (EC) 40 MG TAB PO SCH (05:57)
[2016-08-25] MEDS: CIPROFLOXACIN 500 MG TAB PO SCH ×2 (05:57→17:14)
[2016-08-25 06:30] LABS: BASOPHILS % 0.5 % (0.0-2.0); EOSINOPHILS # 0.1 10^3/ul (0.0-0.5); EOSINOPHILS % 1.7 % (0.0-7.0); HEMATOCRIT 27.1 % (37.0-47.0); HEMOGLOBIN 9.4 g/dl (12.0-16.0); LYMPHOCYTES # 2.1 10^3/ul (0.8-2.9); LYMPHOCYTES % 26.3 % (15.0-51.0); MEAN CORPUSCULAR HEMOGLOBIN 31.6 pg (29.0-33.0); MEAN CORPUSCULAR HGB CONC 34.6 g/dl (32.0-37.0); MEAN CORPUSCULAR VOLUME 91.4 fl (82.0-101.0); MEAN PLATELET VOLUME 7.1 fl (7.4-10.4); MONOCYTE # 0.6 10^3/ul (0.3-0.9); MONOCYTES % 7.3 % (0.0-11.0); NEUTROPHIL # 5.2 10^3/ul (1.6-7.5); NEUTROPHILS % 64.2 % (39.0-77.0); PLATELET COUNT 323 10^3/UL (140-440); RED BLOOD COUNT 2.97 10^6/ul (4.20-5.40); RED CELL DISTRIBUTION WIDTH 12.6 % (11.5-14.5); UNCORRECTED WBC 8.1 10^3/ul (4.8-10.8); WHITE BLOOD COUNT 8.1 10^3/ul (4.8-10.8)
[2016-08-25 06:31] LABS: POTASSIUM 4.5 mmol/L (3.5-5.1)
[2016-08-25 06:34] LABS: CREATININE 1.34 mg/dl (0.44-1.00)
[2016-08-25 06:38] LABS: CONDITION 1
[2016-08-25] MEDS: INSULIN ASPART [NOVOLOG] 3 ML PEN SC SCH ×7 (07:50→20:51)
[2016-08-25 08:08] VITALS: BP 137/78; RESP 19
--- NOTE | 2016-08-25 08:44 | CONS ---
Date/Time of Note Date/Time of Note DATE: 08/25/16 TIME: 08:43 Assessment/Plan Assessment/Plan Additional Assessment/Plan 1. Acute kidney injury on chronic kidney disease secondary to acute tubular necrosis from sepsis. 2. Sepsis with bacteremia, likely secondary to urinary tract infection. 3. Urinary tract infection with urine culture growing Escherichia coli. 4. 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 5. History of hypertension. 6. History of diabetes mellitus. PLAN: Cr slowly improving 1.34 headache improved after BP control d/alex spironolactone and Hydralazine, continue lasix 40mg po daily and Procardia XL 60 mg Po daily Clonidine prn SBP>150 mm hg will follow up Consultation Date/Type/Reason Admit Date/Time Aug 17, 2016 at 11:23 Initial Consult Date 08/20/2016 Type of Consultation: NEPHROLOGY Reason for Consultation acute kidney Injury, Uncontrolled HTN Referring Provider: SHELDON RIVERA MD 24 HR Interval Summary Free Text/Dictation remained stable, BP stable,afebrile, Exam/Review of Systems Vital Signs Vitals Vital Signs Date Time Temp Pulse Resp B/P Pulse Ox O2 Delivery O2 Flow Rate FiO2 08/25/16 08:08 97.8 69 19 137/78 99 Intake and Output 08/24/16 08/24/16 08/25/16 15:00 23:00 07:00 Intake Total 1000 ml Balance 1000 ml Exam GENERAL: Awake, alert, in no distress. HEENT: Normal. Oropharynx clear. NECK: Supple, no JVD, no lymphadenopathy. LUNGS: Clear to auscultation. No crackles, no wheezes. HEART: S1, S2, with regular rhythm, no murmur. ABDOMEN: Soft, nontender, nondistended. Bowel sounds are present. EXTREMITIES: No clubbing, cyanosis, or edema. NEUROLOGICAL: Nonfocal, intact. PSYCHIATRIC: Appropriate affect and mood. Results Result Diagram: 08/25/16 0545 08/25/16 0545 Results 24 hrs Laboratory Tests Test 08/24/16 12:03 08/24/16 16:43 08/24/16 17:17 08/24/16 20:32 Bedside Glucose 148 110 199 Troponin I < 0.012 Test 08/25/16 01:00 08/25/16 01:50 08/25/16 05:45 08/25/16 07:47 Troponin I 0.018 Bedside Glucose 142 124 Anion Gap 16 Basophils # 0.0 Basophils % 0.5 Blood Morphology Comment Blood Urea Nitrogen 32 H Calcium Level 9.0 Carbon Dioxide Level 26 Chloride Level 102 Creatinine 1.34 H Eosinophils # 0.1 Eosinophils % 1.7 Glucose Level 150 Hematocrit 27.1 L Hemoglobin 9.4 L Lymphocytes # 2.1 Lymphocytes % 26.3 Mean Corpuscular Hemoglobin 31.6 Mean Corpuscular Hemoglobin Concent 34.6 Mean Corpuscular Volume 91.4 Mean Platelet Volume 7.1 L Monocytes # 0.6 Monocytes % 7.3 Neutrophils # 5.2 Neutrophils % 64.2 Nucleated Red Blood Cells # 0.0 Nucleated Red Blood Cells % 0.0 Platelet Count 323 Potassium Level 4.5 Red Blood Count 2.97 L Red Cell Distribution Width 12.6 Sodium Level 139 White Blood Count 8.1 Medications Medications Current Medications Ondansetron HCl (Zofran Inj) 4 mg Q6H PRN IV NAUSEA AND/OR VOMITING Last administered on 08/17/16 08:51; Admin Dose 4 MG; Start 08/15/16 at 18:30 Morphine Sulfate (morphine) 2 mg Q4H PRN IV SEVERE PAIN LEVEL 7-10 Last administered on 08/24/16 16:09; Admin Dose 2 MG; Start 08/15/16 at 18:30 Amiodarone HCl (Cordarone) 200 mg DAILY PO Last administered on 08/24/16 08:29 ; Admin Dose 200 MG; Start 08/16/16 at 09:00 Atorvastatin Calcium (Lipitor) 20 mg HS PO Last administered on 08/24/16 20:29 ; Admin Dose 20 MG; Start 08/15/16 at 21:00 Fluticasone Propionate (Flonase 0.05% Nasal) 1 spray BID NASAL Last administered on 08/24/16 20:29; Admin Dose 1 SPRAY; Start 08/15/16 at 21:00 Diagnostic Test (Pha) (Accucheck) 1 ea 02 XX Last administered on 08/25/16 01: 55; Admin Dose 1 EA; Start 08/16/16 at 02:00 Miscellaneous Information 1 ea NOTE XX ; Start 08/15/16 at 19:00 Glucose (Glutose) 15 gm Q15M PRN PO DECREASED GLUCOSE; Start 08/15/16 at 19:00 Glucose (Glutose) 22.5 gm Q15M PRN PO DECREASED GLUCOSE; Start 08/15/16 at 19:00 Dextrose (D50w Syringe) 25 ml Q15M PRN IV DECREASED GLUCOSE; Start 08/15/16 at 19:00 Dextrose (D50w Syringe) 50 ml Q15M PRN IV DECREASED GLUCOSE; Start 08/15/16 at 19:00 Glucagon (Glucagen) 1 mg Q15M PRN IM DECREASED GLUCOSE; Start 08/15/16 at 19:00 Glucose (Glutose) 15 gm Q15M PRN BUCCAL DECREASED GLUCOSE; Start 08/15/16 at 19: 00 Guaifenesin/ Dextromethorphan (Robitussin Dm Liquid Cup) 10 ml Q4H PRN PO cough Last administered on 08/18/16 03:31; Admin Dose 10 ML; Start 08/16/16 at 02 :00 Acetaminophen (Tylenol Tab) 650 mg Q4H PRN PO PAIN AND OR ELEVATED TEMP Last administered on 08/21/16 05:33; Admin Dose 650 MG; Start 08/16/16 at 17:30 Bisacodyl (Dulcolax Supp) 10 mg DAILY PRN [place] CONSTIPATION Last administered on 08/20/16 15:15; Admin Dose 10 MG; Start 08/16/16 at 17:30 Lisinopril (Zestril) 20 mg BID PO Last administered on 08/24/16 20:30; Admin Dose 20 MG; Start 08/17/16 at 22:30 Senna (Senokot) 2 tab BID PRN PO CONSTIPATION Last administered on 08/23/16 15 :41; Admin Dose 2 TAB; Start 08/18/16 at 16:00 Pantoprazole (Protonix Tab) 40 mg DAILY@06 PO Last administered on 08/25/16 05 :57; Admin Dose 40 MG; Start 08/20/16 at 06:00 Insulin Glargine (Lantus) 24 unit HS SC Last administered on 08/24/16 20:46; Admin Dose 24 UNIT; Start 08/20/16 at 21:00 Docusate Sodium (Colace) 100 mg BID PO Last administered on 08/24/16 20:29; Admin Dose 100 MG; Start 08/20/16 at 10:30 Magnesium Hydroxide (Milk Of Mag) 30 ml DAILY PRN PO CONSTIPATION Last administered on 08/24/16 08:41; Admin Dose 30 ML; Start 08/20/16 at 10:00 Furosemide (Lasix) 40 mg DAILY PO Last administered on 08/24/16 08:30; Admin Dose 40 MG; Start 08/22/16 at 09:00 Clonidine (Catapres) 0.1 mg Q6H PRN PO SBP>150 mm hg Last administered on 15:39; Admin Dose 0.1 MG; Start 08/21/16 at 11:00 Ciprofloxacin (Cipro) 500 mg BID@06,18 PO Last administered on 08/25/16 05:57 ; Admin Dose 500 MG; Start 08/22/16 at 18:00 Aspirin (Halfprin) 81 mg DAILY PO ; Start 08/25/16 at 09:00 Metoprolol Tartrate (Lopressor) 25 mg BID GTB Last administered on 08/24/16 17 :49; Admin Dose 25 MG; Start 08/24/16 at 18:00 FRAN QUINTERO MD Aug 25, 2016 08:44
[2016-08-25] MEDS ORDERED: NIFEdipine (XL) 60 MG TAB PO SCH (09:00)
[2016-08-25] MEDS: DOCUSATE SODIUM 100 MG CAP PO SCH ×2 (09:04→20:21)
[2016-08-25] MEDS: AMIODARONE 200 MG TAB PO SCH (09:04)
[2016-08-25] MEDS: LISINOPRIL 20 MG TAB PO SCH ×2 (09:05→20:21)
[2016-08-25] MEDS: FUROSEMIDE 40 MG TAB PO SCH (09:05)
[2016-08-25] MEDS: ASPIRIN (EC) 81 MG TAB PO SCH (09:05)
--- NOTE | 2016-08-25 09:05 | PN ---
Date/Time of Note Date/Time of Note DATE: 08/25/16 TIME: 09:05 Assessment/Plan VTE Prophylaxis VTE Prophylaxis Intervention: ambulation, SCD's Lines/Catheters IV Catheter Type (from Nrsg): Saline Lock Urinary Cath still in place: No Assessment/Plan Assessment/Plan - Acute cystitis. Continue antibiotics per ID. - Sepsis with fever, leukocytosis, and elevated lactic acid and E. coli bacteremia. Dr. Mena is following in infection disease consultation. - Gastritis per EGD. Continue Protonix. - Diabetes mellitus type 2. Hemoglobin A1c is 9.2. Continue Lantus not pre- meal NovoLog and NovoLog per mild algorithm sliding scale. - Congestive heart failure with ejection fraction of 35%. Continue patient on Lasix and Aldactone. - Paroxysmal atrial fibrillation. Continue Eliquis. - Hypertension. Continue lisinopril. - Acute kidney injury. Renal ultrasound is reviewed . Monitor BUN and creatinine. - Nausea and vomiting, resolved, continue Zofran p.r.n. for nausea and morphine p.r.n. for pain. Dr. Kumar is following in gastroenterology consultation. Continue Protonix for peptic ulcer disease prophylaxis. Further recommendations based on clinical course. Plan of care discussed with Dr. Benítez. Exam/Review of Systems Vital Signs Vitals Vital Signs Date Time Temp Pulse Resp B/P Pulse Ox O2 Delivery O2 Flow Rate FiO2 08/25/16 08:08 97.8 69 19 137/78 99 Intake and Output 08/24/16 08/24/16 08/25/16 15:00 23:00 07:00 Intake Total 1000 ml Balance 1000 ml Exam Constitutional: alert, oriented, well developed Psych: nl mood/affect Head: atraumatic Eyes: EOMI ENMT: nl external ears & nose Neck: non-tender Respiratory: clear to auscultation Cardiovascular: nl pulses Gastrointestinal: non-tender, soft Musculoskeletal: nl extremities to inspection Extremities: normal pulses Neurological: nl mental status, nl speech Skin: nl turgor Lymph: nontender Results Result Diagram: 08/25/16 0545 08/25/16 0545 Results 24 hrs Laboratory Tests Test 08/24/16 12:03 08/24/16 16:43 08/24/16 17:17 08/24/16 20:32 Bedside Glucose 148 110 199 Troponin I < 0.012 Test 08/25/16 01:00 08/25/16 01:50 08/25/16 05:45 08/25/16 07:47 Troponin I 0.018 Bedside Glucose 142 124 Anion Gap 16 Basophils # 0.0 Basophils % 0.5 Blood Morphology Comment Blood Urea Nitrogen 32 H Calcium Level 9.0 Carbon Dioxide Level 26 Chloride Level 102 Creatinine 1.34 H Eosinophils # 0.1 Eosinophils % 1.7 Glucose Level 150 Hematocrit 27.1 L Hemoglobin 9.4 L Lymphocytes # 2.1 Lymphocytes % 26.3 Mean Corpuscular Hemoglobin 31.6 Mean Corpuscular Hemoglobin Concent 34.6 Mean Corpuscular Volume 91.4 Mean Platelet Volume 7.1 L Monocytes # 0.6 Monocytes % 7.3 Neutrophils # 5.2 Neutrophils % 64.2 Nucleated Red Blood Cells # 0.0 Nucleated Red Blood Cells % 0.0 Platelet Count 323 Potassium Level 4.5 Red Blood Count 2.97 L Red Cell Distribution Width 12.6 Sodium Level 139 White Blood Count 8.1 Medications Medications Current Medications Ondansetron HCl (Zofran Inj) 4 mg Q6H PRN IV NAUSEA AND/OR VOMITING Last administered on 08/17/16 08:51; Admin Dose 4 MG; Start 08/15/16 at 18:30 Morphine Sulfate (morphine) 2 mg Q4H PRN IV SEVERE PAIN LEVEL 7-10 Last administered on 08/24/16 16:09; Admin Dose 2 MG; Start 08/15/16 at 18:30 Amiodarone HCl (Cordarone) 200 mg DAILY PO Last administered on 08/24/16 08:29 ; Admin Dose 200 MG; Start 08/16/16 at 09:00 Atorvastatin Calcium (Lipitor) 20 mg HS PO Last administered on 08/24/16 20:29 ; Admin Dose 20 MG; Start 08/15/16 at 21:00 Fluticasone Propionate (Flonase 0.05% Nasal) 1 spray BID NASAL Last administered on 08/24/16 20:29; Admin Dose 1 SPRAY; Start 08/15/16 at 21:00 Diagnostic Test (Pha) (Accucheck) 1 ea 02 XX Last administered on 08/25/16 01: 55; Admin Dose 1 EA; Start 08/16/16 at 02:00 Miscellaneous Information 1 ea NOTE XX ; Start 08/15/16 at 19:00 Glucose (Glutose) 15 gm Q15M PRN PO DECREASED GLUCOSE; Start 08/15/16 at 19:00 Glucose (Glutose) 22.5 gm Q15M PRN PO DECREASED GLUCOSE; Start 08/15/16 at 19:00 Dextrose (D50w Syringe) 25 ml Q15M PRN IV DECREASED GLUCOSE; Start 08/15/16 at 19:00 Dextrose (D50w Syringe) 50 ml Q15M PRN IV DECREASED GLUCOSE; Start 08/15/16 at 19:00 Glucagon (Glucagen) 1 mg Q15M PRN IM DECREASED GLUCOSE; Start 08/15/16 at 19:00 Glucose (Glutose) 15 gm Q15M PRN BUCCAL DECREASED GLUCOSE; Start 08/15/16 at 19: 00 Guaifenesin/ Dextromethorphan (Robitussin Dm Liquid Cup) 10 ml Q4H PRN PO cough Last administered on 08/18/16 03:31; Admin Dose 10 ML; Start 08/16/16 at 02 :00 Acetaminophen (Tylenol Tab) 650 mg Q4H PRN PO PAIN AND OR ELEVATED TEMP Last administered on 08/21/16 05:33; Admin Dose 650 MG; Start 08/16/16 at 17:30 Bisacodyl (Dulcolax Supp) 10 mg DAILY PRN [place] CONSTIPATION Last administered on 08/20/16 15:15; Admin Dose 10 MG; Start 08/16/16 at 17:30 Lisinopril (Zestril) 20 mg BID PO Last administered on 08/24/16 20:30; Admin Dose 20 MG; Start 08/17/16 at 22:30 Senna (Senokot) 2 tab BID PRN PO CONSTIPATION Last administered on 08/23/16 15 :41; Admin Dose 2 TAB; Start 08/18/16 at 16:00 Pantoprazole (Protonix Tab) 40 mg DAILY@06 PO Last administered on 08/25/16 05 :57; Admin Dose 40 MG; Start 08/20/16 at 06:00 Insulin Glargine (Lantus) 24 unit HS SC Last administered on 08/24/16 20:46; Admin Dose 24 UNIT; Start 08/20/16 at 21:00 Docusate Sodium (Colace) 100 mg BID PO Last administered on 08/24/16 20:29; Admin Dose 100 MG; Start 08/20/16 at 10:30 Magnesium Hydroxide (Milk Of Mag) 30 ml DAILY PRN PO CONSTIPATION Last administered on 08/24/16 08:41; Admin Dose 30 ML; Start 08/20/16 at 10:00 Furosemide (Lasix) 40 mg DAILY PO Last administered on 08/24/16 08:30; Admin Dose 40 MG; Start 08/22/16 at 09:00 Clonidine (Catapres) 0.1 mg Q6H PRN PO SBP>150 mm hg Last administered on 15:39; Admin Dose 0.1 MG; Start 08/21/16 at 11:00 Ciprofloxacin (Cipro) 500 mg BID@,18 PO Last administered on 08/25/16 05:57 ; Admin Dose 500 MG; Start 08/22/16 at 18:00 Aspirin (Halfprin) 81 mg DAILY PO ; Start 08/25/16 at 09:00 Metoprolol Tartrate (Lopressor) 25 mg BID GTB Last administered on 08/24/16 17 :49; Admin Dose 25 MG; Start 08/24/16 at 18:00 DOMENICA ROBERTS Aug 25, 2016 09:05
[2016-08-25] MEDS: FLUTICASONE 0.05% 16 GM NAS SPRAY NASAL SCH ×2 (09:06→20:22)
[2016-08-25] MEDS: METOPROLOL 25 MG TAB GTB SCH ×2 (09:06→20:21)
[2016-08-25] MEDS: MAGNESIUM HYDROXIDE 30ML CUP PO PRN (09:10)
--- NOTE | 2016-08-25 12:11 | CONS ---
Date/Time of Note Date/Time of Note DATE: 08/25/16 TIME: 12:10 Assessment/Plan Assessment/Plan Chief Complaint/Hosp Course SUBJECTIVE: No acute events overnight. No fevers. The patient is alert, feels good. MICROBIOLOGY: Repeat blood cultures pending. PHYSICAL EXAMINATION: GENERAL: Well-developed middle-aged woman who is alert, in no distress. HEENT: Head atraumatic, normocephalic. Sclerae anicteric. Buccal mucosa pink. NECK: Supple, trachea midline. CHEST: Rise symmetrical. Breath sounds diminished to bases. HEART: S1, S2. ABDOMEN: Soft, bowel tones present. EXTREMITIES: Without cyanosis or edema. ASSESSMENT: 1. Status post systemic inflammatory response syndrome. 2. Escherichia coli urinary tract infection with bacteremia. 3. Hypertension. 4. Diabetes. 5. Acute kidney injury. PLAN: The patient is doing better. On ciprofloxacin to complete 2 weeks antibiotics for bacteremia. Repeat bld cx negative, ok dc on PO Cipro for 5 more days DW pt Problems: Consultation Date/Type/Reason Admit Date/Time Aug 17, 2016 at 11:23 Type of Consultation: ID Referring Provider: SHELDON RIVERA MD Exam/Review of Systems Vital Signs Vitals Vital Signs Date Time Temp Pulse Resp B/P Pulse Ox O2 Delivery O2 Flow Rate FiO2 08/25/16 08:08 97.8 69 19 137/78 99 Intake and Output 08/24/16 08/24/16 08/25/16 15:00 23:00 07:00 Intake Total 1000 ml Balance 1000 ml Results Result Diagram: 08/25/16 0545 08/25/16 0545 Results 24 hrs Laboratory Tests Test 08/24/16 16:43 08/24/16 17:17 08/24/16 20:32 08/25/16 01:00 Troponin I < 0.012 0.018 Bedside Glucose 110 199 Test 08/25/16 01:50 08/25/16 05:45 08/25/16 07:47 08/25/16 11:32 Bedside Glucose 142 124 189 Anion Gap 16 Basophils # 0.0 Basophils % 0.5 Blood Morphology Comment Blood Urea Nitrogen 32 H Calcium Level 9.0 Carbon Dioxide Level 26 Chloride Level 102 Creatinine 1.34 H Eosinophils # 0.1 Eosinophils % 1.7 Glucose Level 150 Hematocrit 27.1 L Hemoglobin 9.4 L Lymphocytes # 2.1 Lymphocytes % 26.3 Mean Corpuscular Hemoglobin 31.6 Mean Corpuscular Hemoglobin Concent 34.6 Mean Corpuscular Volume 91.4 Mean Platelet Volume 7.1 L Monocytes # 0.6 Monocytes % 7.3 Neutrophils # 5.2 Neutrophils % 64.2 Nucleated Red Blood Cells # 0.0 Nucleated Red Blood Cells % 0.0 Platelet Count 323 Potassium Level 4.5 Red Blood Count 2.97 L Red Cell Distribution Width 12.6 Sodium Level 139 Troponin I < 0.012 White Blood Count 8.1 Medications Medications Current Medications Ondansetron HCl (Zofran Inj) 4 mg Q6H PRN IV NAUSEA AND/OR VOMITING Last administered on 08/17/16 08:51; Admin Dose 4 MG; Start 08/15/16 at 18:30 Morphine Sulfate (morphine) 2 mg Q4H PRN IV SEVERE PAIN LEVEL 7-10 Last administered on 08/24/16 16:09; Admin Dose 2 MG; Start 08/15/16 at 18:30 Amiodarone HCl (Cordarone) 200 mg DAILY PO Last administered on 08/25/16 09:04 ; Admin Dose 200 MG; Start 08/16/16 at 09:00 Atorvastatin Calcium (Lipitor) 20 mg HS PO Last administered on 08/24/16 20:29 ; Admin Dose 20 MG; Start 08/15/16 at 21:00 Fluticasone Propionate (Flonase 0.05% Nasal) 1 spray BID NASAL Last administered on 08/25/16 09:06; Admin Dose 1 SPRAY; Start 08/15/16 at 21:00 Diagnostic Test (Pha) (Accucheck) 1 ea 02 XX Last administered on 08/25/16 01: 55; Admin Dose 1 EA; Start 08/16/16 at 02:00 Miscellaneous Information 1 ea NOTE XX ; Start 08/15/16 at 19:00 Glucose (Glutose) 15 gm Q15M PRN PO DECREASED GLUCOSE; Start 08/15/16 at 19:00 Glucose (Glutose) 22.5 gm Q15M PRN PO DECREASED GLUCOSE; Start 08/15/16 at 19:00 Dextrose (D50w Syringe) 25 ml Q15M PRN IV DECREASED GLUCOSE; Start 08/15/16 at 19:00 Dextrose (D50w Syringe) 50 ml Q15M PRN IV DECREASED GLUCOSE; Start 08/15/16 at 19:00 Glucagon (Glucagen) 1 mg Q15M PRN IM DECREASED GLUCOSE; Start 08/15/16 at 19:00 Glucose (Glutose) 15 gm Q15M PRN BUCCAL DECREASED GLUCOSE; Start 08/15/16 at 19: 00 Guaifenesin/ Dextromethorphan (Robitussin Dm Liquid Cup) 10 ml Q4H PRN PO cough Last administered on 08/18/16 03:31; Admin Dose 10 ML; Start 08/16/16 at 02 :00 Acetaminophen (Tylenol Tab) 650 mg Q4H PRN PO PAIN AND OR ELEVATED TEMP Last administered on 08/21/16 05:33; Admin Dose 650 MG; Start 08/16/16 at 17:30 Bisacodyl (Dulcolax Supp) 10 mg DAILY PRN [place] CONSTIPATION Last administered on 08/20/16 15:15; Admin Dose 10 MG; Start 08/16/16 at 17:30 Lisinopril (Zestril) 20 mg BID PO Last administered on 08/25/16 09:05; Admin Dose 20 MG; Start 08/17/16 at 22:30 Senna (Senokot) 2 tab BID PRN PO CONSTIPATION Last administered on 08/23/16 15 :41; Admin Dose 2 TAB; Start 08/18/16 at 16:00 Pantoprazole (Protonix Tab) 40 mg DAILY@06 PO Last administered on 08/25/16 05 :57; Admin Dose 40 MG; Start 08/20/16 at 06:00 Insulin Glargine (Lantus) 24 unit HS SC Last administered on 08/24/16 20:46; Admin Dose 24 UNIT; Start 08/20/16 at 21:00 Docusate Sodium (Colace) 100 mg BID PO Last administered on 08/25/16 09:04; Admin Dose 100 MG; Start 08/20/16 at 10:30 Magnesium Hydroxide (Milk Of Mag) 30 ml DAILY PRN PO CONSTIPATION Last administered on 08/25/16 09:10; Admin Dose 30 ML; Start 08/20/16 at 10:00 Furosemide (Lasix) 40 mg DAILY PO Last administered on 08/25/16 09:05; Admin Dose 40 MG; Start 08/22/16 at 09:00 Clonidine (Catapres) 0.1 mg Q6H PRN PO SBP>150 mm hg Last administered on 15:39; Admin Dose 0.1 MG; Start 08/21/16 at 11:00 Ciprofloxacin (Cipro) 500 mg BID@,18 PO Last administered on 08/25/16 05:57 ; Admin Dose 500 MG; Start 08/22/16 at 18:00 Aspirin (Halfprin) 81 mg DAILY PO Last administered on 08/25/16 09:05; Admin Dose 81 MG; Start 08/25/16 at 09:00 Metoprolol Tartrate (Lopressor) 25 mg BID GTB Last administered on 08/25/16 09 :06; Admin Dose 25 MG; Start 08/24/16 at 18:00 MCKAYLA HANNAH NP Aug 25, 2016 12:11
[2016-08-25] MEDS: SENNA TAB PO PRN (17:20)
[2016-08-25] MEDS: ATORVASTATIN 20 MG TAB PO SCH (20:20)
[2016-08-25] MEDS: INSULIN GLARGINE [LANtus] 3 ML PEN SC SCH (20:30)
[2016-08-25] MEDS: ACETAMINOPHEN 325 MG TAB PO PRN (20:32)
--- NOTE | 2016-08-25 20:47 | RADRPT ---
Vent Rate: 80 bpm RR Interval: 0 msec NC Interval: 196 msec QRS Duration: 92 msec QT Interval: 422 msec QTC Interval: 486 msec P-R-T Miller: 48 - 15 - 65 degrees Normal sinus rhythm Prolonged QT Abnormal ECG Electronically Signed By: Griffin Mcgill [id number]
[2016-08-25 21:52] VITALS: BP 168/79; RESP 20
[2016-08-25 23:45] VITALS: BP 134/62; PULSE 65
[2016-08-26] MEDS: ACCUCHECK XX SCH (02:00)
[2016-08-26] MEDS: CIPROFLOXACIN 500 MG TAB PO SCH ×2 (05:53→18:27)
[2016-08-26] MEDS: PANTOPRAZOLE (EC) 40 MG TAB PO SCH (05:53)
[2016-08-26 06:48] LABS: BASOPHILS % 0.5 % (0.0-2.0); EOSINOPHILS # 0.1 10^3/ul (0.0-0.5); EOSINOPHILS % 1.5 % (0.0-7.0); HEMATOCRIT 28.2 % (37.0-47.0); HEMOGLOBIN 9.7 g/dl (12.0-16.0); LYMPHOCYTES # 1.9 10^3/ul (0.8-2.9); LYMPHOCYTES % 28.2 % (15.0-51.0); MEAN CORPUSCULAR HEMOGLOBIN 31.3 pg (29.0-33.0); MEAN CORPUSCULAR HGB CONC 34.5 g/dl (32.0-37.0); MEAN CORPUSCULAR VOLUME 90.8 fl (82.0-101.0); MEAN PLATELET VOLUME 7.3 fl (7.4-10.4); MONOCYTE # 0.5 10^3/ul (0.3-0.9); MONOCYTES % 6.9 % (0.0-11.0); NEUTROPHIL # 4.2 10^3/ul (1.6-7.5); NEUTROPHILS % 62.9 % (39.0-77.0); PLATELET COUNT 330 10^3/UL (140-440); RED CELL DISTRIBUTION WIDTH 12.5 % (11.5-14.5); UNCORRECTED WBC 6.6 10^3/ul (4.8-10.8); WHITE BLOOD COUNT 6.6 10^3/ul (4.8-10.8)
[2016-08-26 06:57] LABS: CONDITION 1
[2016-08-26 07:19] LABS: CREATININE 1.38 mg/dl (0.44-1.00)
[2016-08-26 07:36] LABS: POTASSIUM 4.6 mmol/L (3.5-5.1)
[2016-08-26] MEDS: INSULIN ASPART [NOVOLOG] 3 ML PEN SC SCH ×7 (08:15→20:57)
[2016-08-26 08:17] VITALS: BP 168/82; RESP 18
--- NOTE | 2016-08-26 08:32 | CONS ---
Date/Time of Note Date/Time of Note DATE: 08/26/16 TIME: 08:30 Assessment/Plan Assessment/Plan Additional Assessment/Plan 1. Acute kidney injury on chronic kidney disease secondary to acute tubular necrosis from sepsis. 2. Sepsis with bacteremia, likely secondary to urinary tract infection. 3. Urinary tract infection with urine culture growing Escherichia coli. 4. 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 5. History of hypertension. 6. History of diabetes mellitus. PLAN: Cr slowly improving 1.38 headache improved after BP control d/alex spironolactone and Hydralazine, continue lasix 40mg po daily and Procardia XL 60 mg Po daily Clonidine prn SBP>150 mm hg will follow up Consultation Date/Type/Reason Admit Date/Time Aug 17, 2016 at 11:23 Initial Consult Date 08/20/2016 Type of Consultation: NEPHROLOGY Reason for Consultation KENDRA, Uncontrolled HTN Referring Provider: SHELDON RIVERA MD 24 HR Interval Summary Free Text/Dictation reamained stable, afebrile, BP stable Exam/Review of Systems Vital Signs Vitals Vital Signs Date Time Temp Pulse Resp B/P Pulse Ox O2 Delivery O2 Flow Rate FiO2 08/26/16 08:17 98.5 68 18 168/82 99 Intake and Output 08/25/16 08/25/16 08/26/16 15:00 23:00 07:00 Intake Total 1040 ml Balance 1040 ml Exam GENERAL: Awake, alert, in no distress. HEENT: Normal. Oropharynx clear. NECK: Supple, no JVD, no lymphadenopathy. LUNGS: Clear to auscultation. No crackles, no wheezes. HEART: S1, S2, with regular rhythm, no murmur. ABDOMEN: Soft, nontender, nondistended. Bowel sounds are present. EXTREMITIES: No clubbing, cyanosis, or edema. NEUROLOGICAL: Nonfocal, intact. PSYCHIATRIC: Appropriate affect and mood. Results Result Diagram: 08/26/16 0545 08/26/16 0545 Results 24 hrs Laboratory Tests Test 08/25/16 11:32 08/25/16 17:13 08/25/16 20:28 08/26/16 02:02 Bedside Glucose 189 122 186 155 Test 08/26/16 05:45 08/26/16 08:03 Anion Gap 14 Basophils # 0.0 Basophils % 0.5 Blood Morphology Comment Blood Urea Nitrogen 36 H Calcium Level 9.0 Carbon Dioxide Level 26 Chloride Level 104 Creatinine 1.38 H Eosinophils # 0.1 Eosinophils % 1.5 Glucose Level 142 Hematocrit 28.2 L Hemoglobin 9.7 L Lymphocytes # 1.9 Lymphocytes % 28.2 Mean Corpuscular Hemoglobin 31.3 Mean Corpuscular Hemoglobin Concent 34.5 Mean Corpuscular Volume 90.8 Mean Platelet Volume 7.3 L Monocytes # 0.5 Monocytes % 6.9 Neutrophils # 4.2 Neutrophils % 62.9 Nucleated Red Blood Cells # 0.0 Nucleated Red Blood Cells % 0.0 Platelet Count 330 Potassium Level 4.6 Red Blood Count 3.10 L Red Cell Distribution Width 12.5 Sodium Level 139 White Blood Count 6.6 Bedside Glucose 125 Medications Medications Current Medications Ondansetron HCl (Zofran Inj) 4 mg Q6H PRN IV NAUSEA AND/OR VOMITING Last administered on 08/17/16 08:51; Admin Dose 4 MG; Start 08/15/16 at 18:30 Morphine Sulfate (morphine) 2 mg Q4H PRN IV SEVERE PAIN LEVEL 7-10 Last administered on 08/24/16 16:09; Admin Dose 2 MG; Start 08/15/16 at 18:30 Amiodarone HCl (Cordarone) 200 mg DAILY PO Last administered on 08/25/16 09:04 ; Admin Dose 200 MG; Start 08/16/16 at 09:00 Atorvastatin Calcium (Lipitor) 20 mg HS PO Last administered on 08/25/16 20:20 ; Admin Dose 20 MG; Start 08/15/16 at 21:00 Fluticasone Propionate (Flonase 0.05% Nasal) 1 spray BID NASAL Last administered on 08/25/16 20:22; Admin Dose 1 SPRAY; Start 08/15/16 at 21:00 Diagnostic Test (Pha) (Accucheck) 1 ea 02 XX Last administered on 08/26/16 02: 00; Admin Dose 1 EA; Start 08/16/16 at 02:00 Miscellaneous Information 1 ea NOTE XX ; Start 08/15/16 at 19:00 Glucose (Glutose) 15 gm Q15M PRN PO DECREASED GLUCOSE; Start 08/15/16 at 19:00 Glucose (Glutose) 22.5 gm Q15M PRN PO DECREASED GLUCOSE; Start 08/15/16 at 19:00 Dextrose (D50w Syringe) 25 ml Q15M PRN IV DECREASED GLUCOSE; Start 08/15/16 at 19:00 Dextrose (D50w Syringe) 50 ml Q15M PRN IV DECREASED GLUCOSE; Start 08/15/16 at 19:00 Glucagon (Glucagen) 1 mg Q15M PRN IM DECREASED GLUCOSE; Start 08/15/16 at 19:00 Glucose (Glutose) 15 gm Q15M PRN BUCCAL DECREASED GLUCOSE; Start 08/15/16 at 19: 00 Guaifenesin/ Dextromethorphan (Robitussin Dm Liquid Cup) 10 ml Q4H PRN PO cough Last administered on 08/18/16 03:31; Admin Dose 10 ML; Start 08/16/16 at 02 :00 Acetaminophen (Tylenol Tab) 650 mg Q4H PRN PO PAIN AND OR ELEVATED TEMP Last administered on 08/25/16 20:32; Admin Dose 650 MG; Start 08/16/16 at 17:30 Bisacodyl (Dulcolax Supp) 10 mg DAILY PRN [place] CONSTIPATION Last administered on 08/20/16 15:15; Admin Dose 10 MG; Start 08/16/16 at 17:30 Lisinopril (Zestril) 20 mg BID PO Last administered on 08/25/16 20:21; Admin Dose 20 MG; Start 08/17/16 at 22:30 Senna (Senokot) 2 tab BID PRN PO CONSTIPATION Last administered on 08/25/16 17 :20; Admin Dose 2 TAB; Start 08/18/16 at 16:00 Pantoprazole (Protonix Tab) 40 mg DAILY@06 PO Last administered on 08/26/16 05 :53; Admin Dose 40 MG; Start 08/20/16 at 06:00 Insulin Glargine (Lantus) 24 unit HS SC Last administered on 08/25/16 20:30; Admin Dose 24 UNIT; Start 08/20/16 at 21:00 Docusate Sodium (Colace) 100 mg BID PO Last administered on 08/25/16 20:21; Admin Dose 100 MG; Start 08/20/16 at 10:30 Magnesium Hydroxide (Milk Of Mag) 30 ml DAILY PRN PO CONSTIPATION Last administered on 08/25/16 09:10; Admin Dose 30 ML; Start 08/20/16 at 10:00 Furosemide (Lasix) 40 mg DAILY PO Last administered on 08/25/16 09:05; Admin Dose 40 MG; Start 08/22/16 at 09:00 Clonidine (Catapres) 0.1 mg Q6H PRN PO SBP>150 mm hg Last administered on 15:39; Admin Dose 0.1 MG; Start 08/21/16 at 11:00 Ciprofloxacin (Cipro) 500 mg BID@,18 PO Last administered on 08/26/16 05:53 ; Admin Dose 500 MG; Start 08/22/16 at 18:00 Aspirin (Halfprin) 81 mg DAILY PO Last administered on 08/25/16 09:05; Admin Dose 81 MG; Start 08/25/16 at 09:00 Metoprolol Tartrate (Lopressor) 25 mg BID GTB Last administered on 08/25/16 20 :21; Admin Dose 25 MG; Start 08/24/16 at 18:00 FRAN QUINTERO MD Aug 26, 2016 08:32
[2016-08-26] MEDS: ASPIRIN (EC) 81 MG TAB PO SCH (09:08)
[2016-08-26] MEDS: FLUTICASONE 0.05% 16 GM NAS SPRAY NASAL SCH ×2 (09:08→20:56)
[2016-08-26] MEDS: DOCUSATE SODIUM 100 MG CAP PO SCH ×2 (09:08→20:56)
[2016-08-26] MEDS: LISINOPRIL 20 MG TAB PO SCH ×2 (09:09→20:56)
[2016-08-26] MEDS: AMIODARONE 200 MG TAB PO SCH (09:09)
[2016-08-26] MEDS: FUROSEMIDE 40 MG TAB PO SCH (09:09)
[2016-08-26] MEDS: METOPROLOL 25 MG TAB GTB SCH (09:10)
[2016-08-26] MEDS: SENNA TAB PO PRN (12:37)
[2016-08-26] MEDS: MAGNESIUM HYDROXIDE 30ML CUP PO PRN (12:38)
--- NOTE | 2016-08-26 12:39 | CONS ---
Date/Time of Note Date/Time of Note DATE: 08/26/16 TIME: 12:38 Assessment/Plan Assessment/Plan Chief Complaint/Hosp Course SUBJECTIVE: No acute events overnight. No fevers. The patient is alert, feels good. PHYSICAL EXAMINATION: GENERAL: Well-developed middle-aged woman who is alert, in no distress. HEENT: Head atraumatic, normocephalic. Sclerae anicteric. Buccal mucosa pink. NECK: Supple, trachea midline. CHEST: Rise symmetrical. Breath sounds diminished to bases. HEART: S1, S2. ABDOMEN: Soft, bowel tones present. EXTREMITIES: Without cyanosis or edema. ASSESSMENT: 1. Status post systemic inflammatory response syndrome. 2. S/p Escherichia coli urinary tract infection with bacteremia. 3. Hypertension. 4. Diabetes. 5. Acute kidney injury. PLAN: The patient is stable. Ok dc on PO Cipro for 4 more days [facility] staff Problems: Consultation Date/Type/Reason Admit Date/Time Aug 17, 2016 at 11:23 Type of Consultation: id Referring Provider: SHELDON RIVERA MD Exam/Review of Systems Vital Signs Vitals Vital Signs Date Time Temp Pulse Resp B/P Pulse Ox O2 Delivery O2 Flow Rate FiO2 08/26/16 08:17 98.5 68 18 168/82 99 Intake and Output 08/25/16 08/25/16 08/26/16 15:00 23:00 07:00 Intake Total 1040 ml Balance 1040 ml Results Result Diagram: 08/26/16 0545 08/26/16 0545 Results 24 hrs Laboratory Tests Test 08/25/16 17:13 08/25/16 20:28 08/26/16 02:02 08/26/16 05:45 Bedside Glucose 122 186 155 Anion Gap 14 Basophils # 0.0 Basophils % 0.5 Blood Morphology Comment Blood Urea Nitrogen 36 H Calcium Level 9.0 Carbon Dioxide Level 26 Chloride Level 104 Creatinine 1.38 H Eosinophils # 0.1 Eosinophils % 1.5 Glucose Level 142 Hematocrit 28.2 L Hemoglobin 9.7 L Lymphocytes # 1.9 Lymphocytes % 28.2 Mean Corpuscular Hemoglobin 31.3 Mean Corpuscular Hemoglobin Concent 34.5 Mean Corpuscular Volume 90.8 Mean Platelet Volume 7.3 L Monocytes # 0.5 Monocytes % 6.9 Neutrophils # 4.2 Neutrophils % 62.9 Nucleated Red Blood Cells # 0.0 Nucleated Red Blood Cells % 0.0 Platelet Count 330 Potassium Level 4.6 Red Blood Count 3.10 L Red Cell Distribution Width 12.5 Sodium Level 139 White Blood Count 6.6 Test 08/26/16 08:03 08/26/16 11:58 Bedside Glucose 125 168 Medications Medications Current Medications Ondansetron HCl (Zofran Inj) 4 mg Q6H PRN IV NAUSEA AND/OR VOMITING Last administered on 08/17/16 08:51; Admin Dose 4 MG; Start 08/15/16 at 18:30 Morphine Sulfate (morphine) 2 mg Q4H PRN IV SEVERE PAIN LEVEL 7-10 Last administered on 08/24/16 16:09; Admin Dose 2 MG; Start 08/15/16 at 18:30 Amiodarone HCl (Cordarone) 200 mg DAILY PO Last administered on 08/26/16 09:09 ; Admin Dose 200 MG; Start 08/16/16 at 09:00 Atorvastatin Calcium (Lipitor) 20 mg HS PO Last administered on 08/25/16 20:20 ; Admin Dose 20 MG; Start 08/15/16 at 21:00 Fluticasone Propionate (Flonase 0.05% Nasal) 1 spray BID NASAL Last administered on 08/26/16 09:08; Admin Dose 1 SPRAY; Start 08/15/16 at 21:00 Diagnostic Test (Pha) (Accucheck) 1 ea 02 XX Last administered on 08/26/16 02: 00; Admin Dose 1 EA; Start 08/16/16 at 02:00 Miscellaneous Information 1 ea NOTE XX ; Start 08/15/16 at 19:00 Glucose (Glutose) 15 gm Q15M PRN PO DECREASED GLUCOSE; Start 08/15/16 at 19:00 Glucose (Glutose) 22.5 gm Q15M PRN PO DECREASED GLUCOSE; Start 08/15/16 at 19:00 Dextrose (D50w Syringe) 25 ml Q15M PRN IV DECREASED GLUCOSE; Start 08/15/16 at 19:00 Dextrose (D50w Syringe) 50 ml Q15M PRN IV DECREASED GLUCOSE; Start 08/15/16 at 19:00 Glucagon (Glucagen) 1 mg Q15M PRN IM DECREASED GLUCOSE; Start 08/15/16 at 19:00 Glucose (Glutose) 15 gm Q15M PRN BUCCAL DECREASED GLUCOSE; Start 08/15/16 at 19: 00 Guaifenesin/ Dextromethorphan (Robitussin Dm Liquid Cup) 10 ml Q4H PRN PO cough Last administered on 08/18/16 03:31; Admin Dose 10 ML; Start 08/16/16 at 02 :00 Acetaminophen (Tylenol Tab) 650 mg Q4H PRN PO PAIN AND OR ELEVATED TEMP Last administered on 08/25/16 20:32; Admin Dose 650 MG; Start 08/16/16 at 17:30 Bisacodyl (Dulcolax Supp) 10 mg DAILY PRN [place] CONSTIPATION Last administered on 08/20/16 15:15; Admin Dose 10 MG; Start 08/16/16 at 17:30 Lisinopril (Zestril) 20 mg BID PO Last administered on 08/26/16 09:09; Admin Dose 20 MG; Start 08/17/16 at 22:30 Senna (Senokot) 2 tab BID PRN PO CONSTIPATION Last administered on 08/25/16 17 :20; Admin Dose 2 TAB; Start 08/18/16 at 16:00 Pantoprazole (Protonix Tab) 40 mg DAILY@06 PO Last administered on 08/26/16 05 :53; Admin Dose 40 MG; Start 08/20/16 at 06:00 Insulin Glargine (Lantus) 24 unit HS SC Last administered on 08/25/16 20:30; Admin Dose 24 UNIT; Start 08/20/16 at 21:00 Docusate Sodium (Colace) 100 mg BID PO Last administered on 08/26/16 09:08; Admin Dose 100 MG; Start 08/20/16 at 10:30 Magnesium Hydroxide (Milk Of Mag) 30 ml DAILY PRN PO CONSTIPATION Last administered on 08/25/16 09:10; Admin Dose 30 ML; Start 08/20/16 at 10:00 Furosemide (Lasix) 40 mg DAILY PO Last administered on 08/26/16 09:09; Admin Dose 40 MG; Start 08/22/16 at 09:00 Clonidine (Catapres) 0.1 mg Q6H PRN PO SBP>150 mm hg Last administered on 15:39; Admin Dose 0.1 MG; Start 08/21/16 at 11:00 Ciprofloxacin (Cipro) 500 mg BID@,18 PO Last administered on 08/26/16 05:53 ; Admin Dose 500 MG; Start 08/22/16 at 18:00 Aspirin (Halfprin) 81 mg DAILY PO Last administered on 08/26/16 09:08; Admin Dose 81 MG; Start 08/25/16 at 09:00 Metoprolol Tartrate (Lopressor) 25 mg BID GTB Last administered on 08/26/16 09 :10; Admin Dose 25 MG; Start 08/24/16 at 18:00 MCKAYLA HANNAH NP Aug 26, 2016 12:39
[2016-08-26 14:30] VITALS: BP 139/72
[2016-08-26] MEDS ORDERED: METO-429 GTB (18:37)
--- NOTE | 2016-08-26 18:41 | PN ---
Date/Time of Note Date/Time of Note DATE: 08/26/16 TIME: 18:40 Assessment/Plan VTE Prophylaxis VTE Prophylaxis Intervention: SCD's Lines/Catheters IV Catheter Type (from [facility]): [place] [facility] Urinary Cath still in place: No Assessment/Plan Chief Complaint/Hosp Course ASSESSMENT AND PLAN - Acute cystitis. Continue antibiotics per ID. - Sepsis with fever, leukocytosis, and elevated lactic acid and E. coli bacteremia. Dr. Mena is following in infection disease consultation. - Gastritis per EGD. Continue Protonix. - Diabetes mellitus type 2. Hemoglobin A1c is 9.2. Continue Lantus not pre- meal NovoLog and NovoLog per mild algorithm sliding scale. - Congestive heart failure with ejection fraction of 35%. Continue patient on Lasix and Aldactone. - Paroxysmal atrial fibrillation. Continue Eliquis. - Hypertension. Continue lisinopril. - Acute kidney injury. Renal ultrasound is reviewed . Monitor BUN and creatinine. - Nausea and vomiting, resolved, continue Zofran p.r.n. for nausea and morphine p.r.n. for pain. Dr. Kumar is following in gastroenterology consultation. Patient does not have a ride today, d/c tomorrow in AM Continue Protonix for peptic ulcer disease prophylaxis. Further recommendations based on clinical course. Plan of care discussed with Dr. Benítez. Problems: Exam/Review of Systems Vital Signs Vitals Vital Signs Date Time Temp Pulse Resp B/P Pulse Ox O2 Delivery O2 Flow Rate FiO2 08/26/16 14:30 139/72 08/26/16 08:17 98.5 68 18 99 Intake and Output 08/25/16 08/25/16 08/26/16 14:59 22:59 06:59 Intake Total 1040 ml Balance 1040 ml Exam GENERAL: Well-developed, well-nourished female, currently awake, alert. HEENT: Head is atraumatic, normocephalic. PERRLA. NECK: Supple, no cervical lymphadenopathy, no thyromegaly. CHEST: Lungs clear bilaterally. There is no rhonchi, wheezes, rales noted. CARDIOVASCULAR: Normal sinus rhythm. No murmurs, gallops, clicks, rubs noted. GASTROINTESTINAL: Abdomen is protuberant, soft, nondistended, nontender. Bowel sounds present. EXTREMITIES: There is no edema, clubbing, cyanosis. SKIN: No rash, petechiae noted. NEUROLOGIC: Patient is awake, alert, and oriented x4. Results Result Diagram: 08/26/16 0545 08/26/16 0545 Results 24 hrs Laboratory Tests Test 08/25/16 20:28 08/26/16 02:02 08/26/16 05:45 08/26/16 08:03 Bedside Glucose 186 155 125 Anion Gap 14 Basophils # 0.0 Basophils % 0.5 Blood Morphology Comment Blood Urea Nitrogen 36 H Calcium Level 9.0 Carbon Dioxide Level 26 Chloride Level 104 Creatinine 1.38 H Eosinophils # 0.1 Eosinophils % 1.5 Glucose Level 142 Hematocrit 28.2 L Hemoglobin 9.7 L Lymphocytes # 1.9 Lymphocytes % 28.2 Mean Corpuscular Hemoglobin 31.3 Mean Corpuscular Hemoglobin Concent 34.5 Mean Corpuscular Volume 90.8 Mean Platelet Volume 7.3 L Monocytes # 0.5 Monocytes % 6.9 Neutrophils # 4.2 Neutrophils % 62.9 Nucleated Red Blood Cells # 0.0 Nucleated Red Blood Cells % 0.0 Platelet Count 330 Potassium Level 4.6 Red Blood Count 3.10 L Red Cell Distribution Width 12.5 Sodium Level 139 White Blood Count 6.6 Test 08/26/16 11:58 08/26/16 17:37 Bedside Glucose 168 122 Medications Medications Current Medications Ondansetron HCl (Zofran Inj) 4 mg Q6H PRN IV NAUSEA AND/OR VOMITING Last administered on 08/17/16 08:51; Admin Dose 4 MG; Start 08/15/16 at 18:30 Morphine Sulfate (morphine) 2 mg Q4H PRN IV SEVERE PAIN LEVEL 7-10 Last administered on 08/24/16 16:09; Admin Dose 2 MG; Start 08/15/16 at 18:30 Amiodarone HCl (Cordarone) 200 mg DAILY PO Last administered on 08/26/16 09:09 ; Admin Dose 200 MG; Start 08/16/16 at 09:00 Atorvastatin Calcium (Lipitor) 20 mg HS PO Last administered on 08/25/16 20:20 ; Admin Dose 20 MG; Start 08/15/16 at 21:00 Fluticasone Propionate (Flonase 0.05% Nasal) 1 spray BID NASAL Last administered on 08/26/16 09:08; Admin Dose 1 SPRAY; Start 08/15/16 at 21:00 Diagnostic Test (Pha) (Accucheck) 1 ea 02 XX Last administered on 08/26/16 02: 00; Admin Dose 1 EA; Start 08/16/16 at 02:00 Miscellaneous Information 1 ea NOTE XX ; Start 08/15/16 at 19:00 Glucose (Glutose) 15 gm Q15M PRN PO DECREASED GLUCOSE; Start 08/15/16 at 19:00 Glucose (Glutose) 22.5 gm Q15M PRN PO DECREASED GLUCOSE; Start 08/15/16 at 19:00 Dextrose (D50w Syringe) 25 ml Q15M PRN IV DECREASED GLUCOSE; Start 08/15/16 at 19:00 Dextrose (D50w Syringe) 50 ml Q15M PRN IV DECREASED GLUCOSE; Start 08/15/16 at 19:00 Glucagon (Glucagen) 1 mg Q15M PRN IM DECREASED GLUCOSE; Start 08/15/16 at 19:00 Glucose (Glutose) 15 gm Q15M PRN BUCCAL DECREASED GLUCOSE; Start 08/15/16 at 19: 00 Guaifenesin/ Dextromethorphan (Robitussin Dm Liquid Cup) 10 ml Q4H PRN PO cough Last administered on 08/18/16 03:31; Admin Dose 10 ML; Start 08/16/16 at 02 :00 Acetaminophen (Tylenol Tab) 650 mg Q4H PRN PO PAIN AND OR ELEVATED TEMP Last administered on 08/25/16 20:32; Admin Dose 650 MG; Start 08/16/16 at 17:30 Bisacodyl (Dulcolax Supp) 10 mg DAILY PRN NV CONSTIPATION Last administered on 08/20/16 15:15; Admin Dose 10 MG; Start 08/16/16 at 17:30 Lisinopril (Zestril) 20 mg BID PO Last administered on 08/26/16 09:09; Admin Dose 20 MG; Start 08/17/16 at 22:30 Senna (Senokot) 2 tab BID PRN PO CONSTIPATION Last administered on 08/26/16 12 :37; Admin Dose 2 TAB; Start 08/18/16 at 16:00 Pantoprazole (Protonix Tab) 40 mg DAILY@06 PO Last administered on 08/26/16 05 :53; Admin Dose 40 MG; Start 08/20/16 at 06:00 Insulin Glargine (Lantus) 24 unit HS SC Last administered on 08/25/16 20:30; Admin Dose 24 UNIT; Start 08/20/16 at 21:00 Docusate Sodium (Colace) 100 mg BID PO Last administered on 08/26/16 09:08; Admin Dose 100 MG; Start 08/20/16 at 10:30 Magnesium Hydroxide (Milk Of Mag) 30 ml DAILY PRN PO CONSTIPATION Last administered on 08/26/16 12:38; Admin Dose 30 ML; Start 08/20/16 at 10:00 Furosemide (Lasix) 40 mg DAILY PO Last administered on 08/26/16 09:09; Admin Dose 40 MG; Start 08/22/16 at 09:00 Clonidine (Catapres) 0.1 mg Q6H PRN PO SBP>150 mm hg Last administered on 15:39; Admin Dose 0.1 MG; Start 08/21/16 at 11:00 Ciprofloxacin (Cipro) 500 mg BID@,18 PO Last administered on 08/26/16 18:27 ; Admin Dose 500 MG; Start 08/22/16 at 18:00 Aspirin (Halfprin) 81 mg DAILY PO Last administered on 08/26/16 09:08; Admin Dose 81 MG; Start 08/25/16 at 09:00 Metoprolol Tartrate (Lopressor) 50 mg BID GTB ; Start 08/26/16 at 21:00 ANUSHA DIAZ Aug 26, 2016 18:41
[2016-08-26 20:34] VITALS: BP 170/78; RESP 16
[2016-08-26 20:54] VITALS: BP 146/69; PULSE 67
[2016-08-26] MEDS: ATORVASTATIN 20 MG TAB PO SCH (20:56)
[2016-08-26] MEDS: METOPROLOL 50 MG TAB GTB SCH (20:56)
[2016-08-26] MEDS: INSULIN GLARGINE [LANtus] 3 ML PEN SC SCH (21:07)
[2016-08-27] MEDS: ACCUCHECK XX SCH (02:00)
[2016-08-27] MEDS: CIPROFLOXACIN 500 MG TAB PO SCH (06:08)
[2016-08-27] MEDS: PANTOPRAZOLE (EC) 40 MG TAB PO SCH (06:08)
[2016-08-27 06:09] VITALS: BP 176/79; PULSE 63
[2016-08-27 08:08] VITALS: BP 109/59; PULSE 55; RESP 18
[2016-08-27] MEDS: ASPIRIN (EC) 81 MG TAB PO SCH (08:31)
[2016-08-27] MEDS: DOCUSATE SODIUM 100 MG CAP PO SCH (08:31)
[2016-08-27] MEDS: FLUTICASONE 0.05% 16 GM NAS SPRAY NASAL SCH (08:31)
[2016-08-27] MEDS: FUROSEMIDE 40 MG TAB PO SCH (08:32)
[2016-08-27] MEDS: LISINOPRIL 20 MG TAB PO SCH (08:32)
[2016-08-27] MEDS: INSULIN ASPART [NOVOLOG] 3 ML PEN SC SCH ×2 (08:36)
[2016-08-27] MEDS: AMIODARONE 200 MG TAB PO SCH (08:37)
[2016-08-27] MEDS: METOPROLOL 50 MG TAB GTB SCH (08:38)
--- NOTE | 2016-08-27 08:55 | PDOCDIS ---
Discharge Instructions CONDITION Patient Condition: Good HOME CARE INSTRUCTIONS: Diet Instructions: RegularSpecial Diet: 1800 quinn 2 gm Na ACTIVITY: Activity Restrictions: No Restrictions ISAAC YOST Aug 27, 2016 08:55
--- NOTE | 2016-08-27 09:05 | DS ---
Date/Time of Note Date/Time of Note DATE: 08/27/16 TIME: 09:04 Discharge Summary Admission/Discharge Info Admit Date/Time Aug 17, 2016 at 11:23 Discharge Date/Time 08/27/16 Final Diagnosis - Acute cystitis. Continue antibiotics per ID. - Sepsis with fever, leukocytosis, and elevated lactic acid and E. coli bacteremia. Dr. Mena is following in infection disease consultation. - Gastritis per EGD. Continue Protonix. - Diabetes mellitus type 2. Hemoglobin A1c is 9.2. Continue Lantus not pre- meal NovoLog and NovoLog per mild algorithm sliding scale. - Congestive heart failure with ejection fraction of 35%. Continue patient on Lasix and Aldactone. - Paroxysmal atrial fibrillation. Continue Eliquis. - Hypertension. Continue lisinopril. - Acute kidney injury. Renal ultrasound is reviewed . Monitor BUN and creatinine. - Nausea and vomiting, resolved, continue Zofran p.r.n. for nausea and morphine p.r.n. for pain. Dr. Kumar is following in gastroenterology consultation. Patient Condition: Fair Consults GI ID Hospital Course Patient treated with antibiotics, blood sugar monitored. Once stable, patient was discharged. ASSESSMENT AND PLAN - Acute cystitis. Continue antibiotics per ID. - Sepsis with fever, leukocytosis, and elevated lactic acid and E. coli bacteremia. Dr. Mena is following in infection disease consultation. - Gastritis per EGD. Continue Protonix. - Diabetes mellitus type 2. Hemoglobin A1c is 9.2. Continue Lantus not pre- meal NovoLog and NovoLog per mild algorithm sliding scale. - Congestive heart failure with ejection fraction of 35%. Continue patient on Lasix and Aldactone. - Paroxysmal atrial fibrillation. Continue Eliquis. - Hypertension. Continue lisinopril. - Acute kidney injury. Renal ultrasound is reviewed . Monitor BUN and creatinine. - Nausea and vomiting, resolved, continue Zofran p.r.n. for nausea and morphine p.r.n. for pain. Dr. Kumar is following in gastroenterology consultation. Patient does not have a ride today, d/c tomorrow in AM Continue Protonix for peptic ulcer disease prophylaxis. Further recommendations based on clinical course. Plan of care discussed with Dr. Benítez. Home Meds Active Scripts Metoprolol Tartrate* (Lopressor*) 50 Mg Tab, 50 MG GTB BID for 30 Days, TAB Prov:ANUSHA DIAZ 08/26/16 Lisinopril* (Lisinopril*) 20 Mg Tablet, 20 MG PO BID for 30 Days, TAB Prov:ANUSHA DIAZ 08/24/16 Insulin Aspart* (Novolog Insulin Pen*) 100 Unit/Ml Soln, 12 UNIT SC WITH MEALS for 30 Days Prov:ANUSHA DIAZ 08/24/16 Insulin Glargine* (Lantus*) 100 Unit/Ml Soln, 24 UNIT SC HS for 30 Days Prov:ANUSHA DIAZ 08/24/16 Furosemide* (Furosemide*) 40 Mg Tablet, 40 MG PO DAILY for 30 Days, TAB Prov:ANUSHA DIAZ 08/24/16 Ciprofloxacin Hcl* (Ciprofloxacin Hcl*) 500 Mg Tablet, 500 MG PO BID@06,18 for 6 Days, TAB Prov:ANUSHA DIAZ 08/24/16 Aspirin* (Aspirin* EC) 81 Mg Tablet.dr, 81 MG PO DAILY for 30 Days Prov:ANUSHA DIAZ 08/24/16 Ondansetron (Ondansetron Odt) 4 Mg Tab.rapdis, 4 MG PO Q6H Y for NAUSEA AND/OR VOMITING, #10 TAB Prov:SERENITY MORIN DO 07/24/16 Tramadol HCl (Tramadol HCl) 50 Mg Tablet, 50 MG PO Q6 Y for PAIN, #14 TAB Prov:MIKELSERENITYTAYLOR RIVERA 07/24/16 Atorvastatin Calcium* (Atorvastatin Calcium*) 20 Mg Tab, 20 MG PO HS for 30 Days , TAB 3 Refills Prov:ANNA MIRANDA F 10/07/15 Reported Medications Amiodarone Hcl* (Amiodarone Hcl*) 200 Mg Tablet, 200 MG PO DAILY, #30 TAB 02/09/16 Discontinued Reported Medications Metformin Hcl* (Metformin Hcl*) 1,000 Mg Tablet, 1000 MG PO WITH BREAKFAST DINNE , #30 TAB 07/24/16 Insulin Glargine* (Lantus*) 100 Unit/Ml Soln, 26 UNIT SC QHS, #1 VIAL 02/09/16 Discontinued Scripts Spironolactone* (Aldactone*) 25 Mg Tablet, 25 MG PO BID for 30 Days, TAB 3 Refills Prov:ANNA MIRANDA 02/12/16 Lisinopril* (Lisinopril*) 20 Mg Tablet, 20 MG PO DAILY for 30 Days, TAB 3 Refills Prov:ANNA MIRANDA 02/12/16 Furosemide* (Furosemide*) 40 Mg Tablet, 40 MG PO BID for 30 Days, TAB 3 Refills Prov:ANNA MIRANDA 02/12/16 Apixaban* (Eliquis*) 5 Mg Tablet, 5 MG PO BID for 30 Days, TAB 3 Refills Prov:ANNA MIRANDA 10/07/15 Pending Labs Laboratory Tests Test 08/26/16 11:58 08/26/16 17:37 08/26/16 20:54 08/27/16 08:02 Bedside Glucose 168mg/dL (70-220) 122mg/dL (70-220) 167mg/dL (70-220) 159mg/dL (70-220) ISAAC YOST Aug 27, 2016 09:05
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
== END 2016-08-27 09:40 | disposition home or self-care (01) | DRG 871 ==
LOC: E/R 09:29 → MS2 14:44 → UNDOADMOB 16:45 → MS2 16:45 → OBSVTOIN 08-17 11:23 → MS2 08-18 04:53
PROVIDERS: ADMIT Internal Medicine; ATTEND Internal Medicine
PROC: 0DB68ZX Excision of Stomach, Via Natural or Artificial Opening Endoscopic, Diagnostic (ICD-10-PCS; principal; 2016-08-17 09:30)
DX: A41.51 Sepsis due to Escherichia coli [E. coli] (principal); N17.0 Acute kidney failure with tubular necrosis; E11.21 Type 2 diabetes mellitus with diabetic nephropathy; I13.0 Hypertensive heart and chronic kidney disease with heart failure and stage 1 through stage 4 chronic kidney disease, or unspecified chronic kidney disease; I50.22 Chronic systolic (congestive) heart failure; I48.0 Paroxysmal atrial fibrillation; E86.0 Dehydration; N30.00 Acute cystitis without hematuria; K29.70 Gastritis, unspecified, without bleeding; E78.5 Hyperlipidemia, unspecified; K29.80 Duodenitis without bleeding; G47.33 Obstructive sleep apnea (adult) (pediatric); E66.9 Obesity, unspecified; B96.20 Unspecified Escherichia coli [E. coli] as the cause of diseases classified elsewhere; K80.20 Calculus of gallbladder without cholecystitis without obstruction; E11.22 Type 2 diabetes mellitus with diabetic chronic kidney disease; N18.2 Chronic kidney disease, stage 2 (mild); Z68.27 Body mass index [BMI] 27.0-27.9, adult; Z79.4 Long term (current) use of insulin; Z79.02 Long term (current) use of antithrombotics/antiplatelets
CPT/HCPCS: 36415; 71010; 74177; 76705; 76775; 80048; 80053; 81001; 81003; 82565; 82962; 83036; 83605; 83690; 84443; 84484; 84520; 85025; 85610; 85730; 87040; 87081; 87086; 88305; 88312; 93005; 96374; 96375; C9113; G0378; J0360; J0696; J0743; J1815; J2250; J2270; J2405; J2543; J3010; J3480; J7030; J7042; Q9967

== ENCOUNTER 2017-10-11 01:22 | Inpatient (IN) | END 2017-10-14 12:52 | disposition home or self-care (01) | DRG 872 ==

== ENCOUNTER 2018-03-22 21:08 | Emergency (ER) | END 2018-03-23 07:14 | disposition home or self-care (01) ==

== ENCOUNTER 2018-06-05 17:05 | Emergency (ER) | END 2018-06-05 20:03 | disposition home or self-care (01) ==

== ENCOUNTER 2018-06-11 04:35 | Observation (INO) | END 2018-06-13 14:28 | disposition home or self-care (01) ==

== ENCOUNTER 2018-12-23 22:14 | Emergency (ER) | payer MEDICARE, BC ==
[~2018-12-23] VITALS: Ht 165.1 cm; Wt 80.0 kg
[~2018-12-23 22:14] MED LIST changes: +ACET500C5 PO; -AMIO200T2 PO; -APIX5TAB PO; +ASPI-817 PO; +CARV25TA79 PO; +CHOL100062 PO; +CYAN500T46 PO; +GLIP5TAB13 PO; -HYDR-906 PO; +Insulin Glargine SC; -LANT3I SC; +LISI-471 PO; -LISI20TA11 PO; -METF1000 PO; +NOVO3I SC; +SPIR100T4 PO; -SPIR25TA PO
[2018-12-23 22:17] VITALS: Ht 165.1 cm; Wt 80.0 kg
[2018-12-24] MEDS ORDERED: TRAM50TA2 PO (00:19)
[2018-12-24] MEDS ORDERED: ONDA4TAB14 PO (00:20)
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
[2018-12-24 00:45] VITALS: BP 144/70; PULSE 88; RESP 18
== END 2018-12-24 00:46 | disposition home or self-care (01) ==
LOC: FTE 22:14
DX: M54.5 Low back pain (principal); I11.0 Hypertensive heart disease with heart failure; I50.9 Heart failure, unspecified; M54.2 Cervicalgia; E11.65 Type 2 diabetes mellitus with hyperglycemia; Z79.4 Long term (current) use of insulin; Z79.82 Long term (current) use of aspirin
CPT/HCPCS: 99283